=== PATIENT | male | born 1945 | race Caucasian/White ===

== ENCOUNTER 2024-11-07 13:29 | Inpatient (IN) | payer MEDICARE, SELFPAY ==
[2024-11-07] VITALS (12 sets, daily range): BP systolic 128–159; BP diastolic 50–60; PULSE 52–83; RESP 12–20; TEMP 36.7; O2SAT 94–97; BMI 26.5; BMI 27.2
--- NOTE | 2024-11-07 13:23 | ECG_ITS ---
APPROVED REPORT Exam: Resting ECG HR:78 bpm ECG Measurements Heart Rate 78 AXES QRSd 105 QRS 104 QT 433 T 111 QTc 466 Conclusion ATRIAL FIBRILLATION WITH ABERRANT CONDUCTION OR VENTRICULAR PREMATURE COMPLEXES INCOMPLETE RIGHT BUNDLE BRANCH BLOCK [90+ ms QRS DURATION, TERMINAL R IN V1/V2, 40+ ms S IN I/aVL/V4/V5/V6] POSSIBLE RIGHT VENTRICULAR HYPERTROPHY [SOME/ALL OF: PROMINENT R IN V1, LATE TRANSITION, RAD, JONO, SSS] ST DEVIATION AND MODERATE T-WAVE ABNORMALITY, CONSIDER LATERAL ISCHEMIA [-0.1+ mV T-WAVE IN I/aVL/V5/V6] Lateral ST depression as well as slight ST depression in lead II concerning for ischemic changes, no STEMI Electronically signed by : EDD ESCOBAR, 11/08/2024 06:59:20
--- NOTE | 2024-11-07 13:29 | ED_ITS ---
<Statement entered by Vini Aguilar MD - 11/12/24 07:18> I was consulted by the BRENDA, and we discussed the complexity of the problems being addressed. I approved the treatment and management plan for this patient's care in the emergency department, thus performing a substantive portion of the medical decision making. Vini Aguilar MD, JAVIER, FACEP Discharge Plan Disposition Patient Disposition: Admitted Condition: Serious Clinical Impressions Clinical Impression: Non-ST elevation AK (NSTEMI), RADHA (acute kidney injury) Acute exacerbation of CHF (congestive heart failure) Qualifiers: Heart failure type: unspecified Qualified Code(s): I50.9 - Heart failure, unspecified Discharge ED Provider: Vini Aguilar HPI <ANTONIO Cruz - Last Filed: 11/07/24 22:52> General Chief Complaint: Chest Pain Stated Complaint: SOA/CP 2 wk, HX afib Time Seen by Provider: 11/07/24 13:45 History of Present Illness HPI narrative: Patient presents for evaluation of chest pain. Patient has had 2 weeks of intermittent chest pain and dyspnea. His past medical history is significant for cardiovascular disease status post coronary artery bypass graft and PCI with stent placement post CABG. He has not had any chest pain for more than a decade. However the last 2 weeks he has begun to have progressive shortness of breath and dyspnea primarily starting when he wakes up in the morning. It is worse when he wakes up but is having it several times a day. He does see cardiology in [place] but has not called him about his chest pain. At the time of EMS arrival patient was porting his pain as an 8-10 out of 10. En route they gave him 1 nitroglycerin and it took his pain down to a 2. He denies any fever chills hemoptysis hematochezia melena nausea vomiting diarrhea diaphoresis headache. Related Data Home Medications ?Medication ?Instructions ?Recorded ?Confirmed allopurinol 100 mg tablet 100 mg PO DAILY 12/17/21 11/07/24 apixaban 5 mg tablet (Eliquis) 5 mg PO BID 12/17/21 11/07/24 atorvastatin 20 mg tablet 20 mg PO HS 12/17/21 11/07/24 ergocalciferol (vitamin D2) 1,250 1,250 mcg PO MONTHLY 12/17/21 11/07/24 mcg (50,000 unit) capsule furosemide 20 mg tablet 40 mg PO DAILY 12/17/21 11/07/24 hydralazine 100 mg tablet 100 mg PO BID 12/17/21 11/07/24 insulin glargine U-300 conc 300 See Rx Instructions .Route .COMPLEX 12/17/21 11/07/24 unit/mL (1.5 mL) subcutaneous pen (Toujeo SoloStar U-300 Insulin) pen needle, diabetic 31 gauge x #1,200 ea 12/17/21 11/07/24 5/16 (BD Ultra-Fine Short Pen Needle) tamsulosin 0.4 mg capsule 0.4 mg PO HS 12/17/21 11/07/24 spironolactone 25 mg tablet 25 mg PO DAILY 09/17/22 11/07/24 blood sugar diagnostic (Accu-Chek #10 ea 09/09/23 11/07/24 Jessica Plus test strips) ferrous sulfate 325 mg (65 mg 325 mg PO BID 09/09/23 11/07/24 iron) tablet doxazosin 8 mg tablet 8 mg PO HS 11/07/24 11/07/24 glipizide 5 mg tablet, extended 5 mg PO DAILY 11/07/24 11/07/24 release 24 hr Allergies Allergy/AdvReac Type Severity Reaction Status Date / Time No Known Allergies Allergy Verified 11/07/24 13:56 PENDING SALE TO [facility] <ANTONIO Cruz - Last Filed: 11/07/24 22:52> PENDING SALE TO [facility] Disclaimer: The information contained in this section may have been updated after the patient was seen, as this information can be updated by other users. Medical History (Updated 11/07/24 @ 21:12 by Mykel Puri MD) COPD (chronic obstructive pulmonary disease) CHF (congestive heart failure) CAD (coronary artery disease) CKD (chronic kidney disease) Callus of foot Diabetes mellitus Surgical History Hx of heart artery stent History of heart bypass surgery Social History Smoking Status: Former smoker tobacco type: cigarettes smoking status stop date: 09/28/1992 alcohol intake: never current occupational status: retired Travel in the last 8 weeks: None Have you lived/traveled outside US in past 30 days?: No Contact w/someone who lives/traveled outside US past 30 days?: No Exposure to someone with infectious disease in past 14 days?: No Do you have a fever (greater than 100.4 F or 38 C)?: No Have you tested positive for COVID-19: No Exposed to someone with COVID-19 in past 14 days?: No Do you have a sore throat?: No Do you have a cough?: No Do you have any weakness?: No Are you experiencing any nausea/vomitting?: No Do you have any diarrhea?: No Are you experiencing any unusual bleeding?: No Do you have any muscle aches/pain?: No Do you have any abdominal pain?: No Are you experiencing loss of taste or smell?: No Other Medical History Have you received the Pneumonia Vaccine: Yes <ANTONIO Cruz - Last Filed: 11/07/24 22:52> ROS Obtained: Yes Systems reviewed as appropriate & no additional complaints except as documented Physical Exam <ANTONIO Cruz - Last Filed: 11/07/24 22:52> General General appearance: alert and in no apparent distress Respiratory Respiratory exam: Present normal lung sounds bilaterally; Absent accessory muscle use Cardiovascular Cardiovascular exam: Present regular rate Neurological Exam Neurological exam: Present alert and oriented X3 HEART Score <ANTONIO Cruz - Last Filed: 11/07/24 22:52> HEART Score HEART Score assessment performed?: Yes History (anamnesis): Slightly suspicious ECG: Significant ST-deviation Age: >65 years Risk factors: Atherosclerosis history Troponin: 1-3x normal limit HEART Score: 7 Procedures <Vini Aguilar MD - Last Filed: 11/07/24 14:55> Miscellaneous Procedure Procedure Performed: Limited cardiac ultrasound Indication: Chest pain Identified structures: The heart was visualized in the parasternal long axis, parastenal short axis, apical four chamber and subxyphiod views. The IVC was visualized in the short axis and long axis at its entry into the right atrium. Findings: Normal LVEF RV LV ratio is 1 but there is no Kim sign or septal bowing IVC unable to be visualized due to bowel gas Impression: Evidence of right heart strain age-indeterminate LVEF is unremarkable no pericardial effusion Images were saved to permanent archive The study was technically adequate CPT: 02888-61 This study was performed by me, and I personally interpreted all images/videos. Based on my clinical judgement, these images were adequate and did not necessitate further imaging. Limited lung ultrasound A focused ultrasound exam of the pleural spaces was performed to evaluate for pneumothorax, pulmonary edema, pleural effusion and/or consolidation. The ultrasound was performed with the following indications, as noted in the H&P: Dyspnea Identified structures: Right and left thoracic cavities were examined. Findings: Lung sliding present throughout no B-lines pleural effusion or consolidated noted Impression: Unremarkable bedside ultrasound of bilateral lung Images were saved to permanent archive The study was technically adequate CPT 26266-52 This study was performed by me, and I personally interpreted all images/videos. Based on my clinical judgement, these images were adequate and did not necessitate further imaging. Critical Care <Vini Aguilar MD - Last Filed: 11/07/24 14:55> Critical Care Time Critical Care Time: Yes Attestation: On 11/07/24, the high probability of a clinically significant, sudden or life threatening deterioration of the following system(s) required my full and direct attention, intervention and personal management. The time I documented below is in addition to time spent performing reported procedures but includes the following listed in this critical care notation. Total Time Total Critical Care Time: 35 Medical Decision Making <ANTONIO Cruz - Last Filed: 11/07/24 22:52> Medical Records Medical records reviewed: Yes I reviewed the patient's medical records. Fabrice Inquiry Pt receiving controlled substance: No Vital Signs Vital Signs: 11/07/24 13:23 11/07/24 13:29 11/07/24 13:30 Temperature 98.0 F Temperature Source Oral Pulse Rate 72 83 Pulse Rate [Right] 82 Respiratory Rate 19 20 18 Blood Pressure 154/56 H 141/53 H Blood Pressure [Right Arm] 154/56 H Blood Pressure Mean [Right Arm] 88 Blood Pressure Source [Right Arm] Automatic Cuff 02 Sat by Pulse Oximetry 96 97 95 Oxygen Delivery Method Room Air Room Air Room Air 11/07/24 14:00 11/07/24 14:08 11/07/24 14:30 Temperature Temperature Source Pulse Rate 66 62 65 Pulse Rate [Right] Respiratory Rate 18 15 12 Blood Pressure 159/57 H 140/60 148/59 H Blood Pressure [Right Arm] Blood Pressure Mean [Right Arm] Blood Pressure Source [Right Arm] 02 Sat by Pulse Oximetry 96 94 L 94 L Oxygen Delivery Method Room Air Room Air Room Air 11/07/24 15:00 11/07/24 15:12 11/07/24 15:25 Temperature 98.0 F Temperature Source Oral Pulse Rate 71 71 Pulse Rate [Right] Respiratory Rate 15 20 Blood Pressure 135/50 L 135/59 L Blood Pressure [Right Arm] Blood Pressure Mean [Right Arm] Blood Pressure Source [Right Arm] 02 Sat by Pulse Oximetry 95 Oxygen Delivery Method Room Air Room Air Room Air Lab Data Lab results reviewed: Yes I reviewed the patient's lab results. Labs: Lab Results 11/07/24 13:26: D-Dimer 0.73 H 11/07/24 13:28: WBC 9.8, RBC 3.47 L, Hgb 10.5 L, Hct 31.4 L, MCV 90.5, MCH 30.3, MCHC 33.4, RDW 15.3, Plt Count 163, MPV 12.3 H, Neut % (Auto) 82.0 H, Lymph % (Auto) 8.3 L, Gage % (Auto) 7.1, Eos % (Auto) 1.6, Baso % (Auto) 0.5, Neut # (Auto) 8.0 H, Lymph # (Auto) 0.8, Gage # (Auto) 0.7, Eos # (Auto) 0.2, Baso # (Auto) 0.1, PT 11.9, INR 1.09, Sodium 139, Potassium 4.5, Chloride 109 H, Carbon Dioxide 17 L, Anion Gap 17.5 H, BUN 59 H, Creatinine 2.10 H, Estimated GFR 31 L, Est GFR ( Amer) 37 L, Glucose 232 H, Hemoglobin A1c 6.8 H, Calcium 9.1, Magnesium 2.0, Total Bilirubin 0.8, AST 32, ALT 29, Alkaline Phosphatase 120, T roponin I 0.05 H, NT-Pro-B Natriuret Pep 6790 H, Total Protein 7.5, Albumin 4.3, Globulin 3.2, Albumin/Globulin Ratio 1.3, TSH 3.09, Free T4 Index 4.6 L, T hyroxine (T4) 11.2 H, T3 Uptake 41 H, HCV Ab SHEFALI w/Rflx PCR Qn Negative, HIV Ag/Ab Combo Qual Negative 11/07/24 14:10: Urine Color Yellow, Urine Appearance Clear, Urine pH 5.5, Ur Specific [place] 1.015, Urine Protein Negative, Urine Glucose (UA) Trace, Urine Ketones Negative, Urine Blood Negative, Urine Nitrate Negative, Urine Bilirubin Negative, Urine Urobilinogen 0.2, Ur Leukocyte Esterase Negative, Urine RBC None, Urine WBC None, Ur Squamous Epith Cells Occasional, Urine Bacteria Trace, Hyaline Casts Occ 11/07/24 13:28 11/07/24 13:28 Response Orders (Tests/Meds): ED MEDICATIONS Generic Name Dose Route Start Last Admin Trade Name Freq PRN Reason Stop Dose Admin Allopurinol 100 mg 11/08/24 09:00 Allopurinol 100mg Tablet PO 12/08/24 08:59 DAILY REYNALDO Apixaban 5 mg 11/07/24 21:00 11/07/24 20:06 Apixaban 5mg Tablet PO 12/07/24 20:59 5 mg BID REYNALDO Administration Aspirin 324 mg 11/07/24 20:52 11/07/24 21:23 Aspirin 81mg Chewable Tablet PO 11/07/24 20:53 324 mg ONCE ONE Administration Aspirin 81 mg 11/08/24 09:00 Aspirin Ec 81mg Tablet PO 12/08/24 08:59 DAILY [facility] Atorvastatin Calcium 20 mg 11/07/24 21:00 11/07/24 20:06 Atorvastatin 20mg Tablet PO 12/07/24 20:59 20 mg HS REYNALDO Administration Bumetanide 1 mg 11/07/24 16:00 11/07/24 16:27 Bumetanide 1mg/4ml Vial IV 12/07/24 15:59 Not Given BIDL [facility] Clopidogrel Bisulfate 300 mg 11/07/24 20:52 11/07/24 21:23 Clopidogrel 300mg Tablet PO 11/07/24 20:53 300 mg ONCE ONE Administration Clopidogrel Bisulfate 75 mg 11/08/24 09:00 Clopidogrel 75mg Tab PO 12/08/24 08:59 DAILY [facility] Doxazosin Mesylate 8 mg 11/07/24 21:00 11/07/24 20:06 Doxazosin 4mg Tab PO 12/07/24 20:59 8 mg HS REYNALDO Administration Insulin Human Lispro 0 unit 11/07/24 16:30 11/07/24 20:12 Humalog 100 Units/Ml 10ml Vial (Ssi) SUBCUT 12/07/24 16:29 4 unit ACHS REYNALDO Administration Protocol Spironolactone 25 mg 11/08/24 09:00 Spironolactone 25mg Tablet PO 12/08/24 08:59 DAILY REYNALDO Tamsulosin HCl 0.4 mg 11/07/24 21:00 11/07/24 20:09 Tamsulosin 0.4mg Capsule PO 12/07/24 20:59 0.4 mg HS REYNALDO Administration Discontinued Medications Generic Name Dose Route Start Last Admin Trade Name Freq PRN Reason Stop Dose Admin Acetaminophen 1,000 mg 11/07/24 13:29 11/07/24 13:58 Acetaminophen 500mg Tab PO 11/07/24 13:30 1,000 mg ONCE ONE Administration Ketorolac Tromethamine 15 mg 11/07/24 13:29 11/07/24 13:58 Ketorolac 30mg/Ml Vial IV 11/07/24 13:30 15 mg ONCE ONE Administration ORDERS Category Date Time Status Cardiology Consult [Consult to Cardiology] [CONS] Cons 11/07/24 14:52 Active Routine POCUS Point of Care (ER Only) Stat Exams 11/07/24 14:18 Completed BNP [NT Pro Brain Natriuretic Pep.] Stat Lab 11/07/24 13:28 Completed CBC w/Auto Diff [Complete Blood Count Auto Diff] Stat Lab 11/07/24 13:28 Completed CMP [Comprehensive Metabolic Panel] Stat Lab 11/07/24 13:28 Completed Complete Blood Count Auto Diff AMLAB Lab 11/08/24 06:00 Ordered Comprehensive Metabolic Panel AMLAB Lab 11/08/24 06:00 Ordered D-Dimer Stat Lab 11/07/24 13:26 Completed HIV Combo Stat Lab 11/07/24 13:28 Completed Hemoglobin A1C Stat Lab 11/07/24 13:28 Completed Hepatitis C Ab Qual. W/ RFX Stat Lab 11/07/24 13:28 Completed INR [Prothrombin Time INR] Stat Lab 11/07/24 13:28 Completed Magnesium AMLAB Lab 11/08/24 06:00 Ordered Magnesium Stat Lab 11/07/24 13:28 Completed Thyroid Panel Stat Lab 11/07/24 13:28 Completed Trop I [Troponin I] Stat Lab 11/07/24 13:28 Completed Troponin I Q3H Lab 11/07/24 16:23 Completed Troponin I Q3H Lab 11/07/24 19:27 Completed UA [Urinalysis and Microscopic] Stat Lab 11/07/24 14:10 Completed CA echo doppler complete Routine Y 11/07/24 14:53 Completed MDM Narrative Medical Decision Narrative: In summary patient is a 79 who presents to the emergency department for evaluation of chest pain and dyspnea. Patient is normotensive 154/56 pulse 72 with sinus rhythm on the bedside monitor respiratory rate is 19 satting at 96% on room air upon arrival, afebrile at 98.0. Physical exam is remarkable for clear breath sounds no adventitious sounds no increased work of breathing. Auscultation of the heart sounds x-ray reveals an irregular rhythm but is rate controlled on the bedside monitor. Patient has no dependent edema. Patient has no abdominal pain rebound or guarding or rigidity normal bowel sounds. Differential diagnosis includes ACS versus PE versus CHF etc. Initial workup will be conducted with hematologic labs VBG plain film chest x-ray urinalysis twelve-lead EKG. Initial interventions include continuous cardiac monitoring and pulse oximetry initial workup reviewed by me Toradol Tylenol GI cocktail. Results investigation interpreted by me and my informal interpretation of his plain film chest x-ray prior to radiology read shows no acute processes. His twelve-lead EKG shows ST changes with no baseline to compare to his hematologic labs are significant for white count of 9.8 hemoglobin hematocrit 10.5 and 31.4 respectively with an absolute neutrophil count of 8.0 INR is 1.09 D-dimer is 0.73 chemistries are significant for a CO2 of 17 and gap of 17.5 BUN of 59 creatinine of 2.1 with a GFR of 31 glucose of 232 hemoglobin A1c of 6.8 his initial troponin is positive at 0.05 NT proBNP is 6790 TSH is 3.09 urinalysis is bland. Given this a POCUS was ordered that showed no evidence of wall motion abnormality. We then had interactive discussion with Dr. Garcia of cardiology regarding patient AZUL findings and management and he will be admitted for further observation and care. Prior to admission patient had complete resolution of his chest pain after initial intervention from a 2 out of 10 to 0 out of 10 after initial intervention. <Vini Aguilar MD - Last Filed: 11/07/24 14:55> Vital Signs Vital Signs: 11/07/24 13:23 11/07/24 13:29 11/07/24 13:30 Temperature 98.0 F Temperature Source Oral Pulse Rate 72 83 Pulse Rate [Right] 82 Respiratory Rate 19 20 18 Blood Pressure 154/56 H 141/53 H Blood Pressure [Right Arm] 154/56 H Blood Pressure Mean [Right Arm] 88 Blood Pressure Source [Right Arm] Automatic Cuff 02 Sat by Pulse Oximetry 96 97 95 Oxygen Delivery Method Room Air Room Air Room Air 11/07/24 14:00 11/07/24 14:08 11/07/24 14:30 Temperature Temperature Source Pulse Rate 66 62 65 Pulse Rate [Right] Respiratory Rate 18 15 12 Blood Pressure 159/57 H 140/60 148/59 H Blood Pressure [Right Arm] Blood Pressure Mean [Right Arm] Blood Pressure Source [Right Arm] 02 Sat by Pulse Oximetry 96 94 L 94 L Oxygen Delivery Method Room Air Room Air Room Air 11/07/24 15:00 11/07/24 15:12 11/07/24 15:25 Temperature 98.0 F Temperature Source Oral Pulse Rate 71 71 Pulse Rate [Right] Respiratory Rate 15 20 Blood Pressure 135/50 L 135/59 L Blood Pressure [Right Arm] Blood Pressure Mean [Right Arm] Blood Pressure Source [Right Arm] 02 Sat by Pulse Oximetry 95 Oxygen Delivery Method Room Air Room Air Room Air Lab Data Labs: Lab Results 11/07/24 13:26: D-Dimer 0.73 H 11/07/24 13:28: WBC 9.8, RBC 3.47 L, Hgb 10.5 L, Hct 31.4 L, MCV 90.5, MCH 30.3, MCHC 33.4, RDW 15.3, Plt Count 163, MPV 12.3 H, Neut % (Auto) 82.0 H, Lymph % (Auto) 8.3 L, Gage % (Auto) 7.1, Eos % (Auto) 1.6, Baso % (Auto) 0.5, Neut # (Auto) 8.0 H, Lymph # (Auto) 0.8, Gage # (Auto) 0.7, Eos # (Auto) 0.2, Baso # (Auto) 0.1, PT 11.9, INR 1.09, Sodium 139, Potassium 4.5, Chloride 109 H, Carbon Dioxide 17 L, Anion Gap 17.5 H, BUN 59 H, Creatinine 2.10 H, Estimated GFR 31 L, Est GFR ( Amer) 37 L, Glucose 232 H, Hemoglobin A1c 6.8 H, Calcium 9.1, Magnesium 2.0, Total Bilirubin 0.8, AST 32, ALT 29, Alkaline Phosphatase 120, T roponin I 0.05 H, NT-Pro-B Natriuret Pep 6790 H, Total Protein 7.5, Albumin 4.3, Globulin 3.2, Albumin/Globulin Ratio 1.3, TSH 3.09, Free T4 Index 4.6 L, T hyroxine (T4) 11.2 H, T3 Uptake 41 H, HCV Ab SHEFALI w/Rflx PCR Qn Negative, HIV Ag/Ab Combo Qual Negative 11/07/24 14:10: Urine Color Yellow, Urine Appearance Clear, Urine pH 5.5, Ur Specific [place] 1.015, Urine Protein Negative, Urine Glucose (UA) Trace, Urine Ketones Negative, Urine Blood Negative, Urine Nitrate Negative, Urine Bilirubin Negative, Urine Urobilinogen 0.2, Ur Leukocyte Esterase Negative, Urine RBC None, Urine WBC None, Ur Squamous Epith Cells Occasional, Urine Bacteria Trace, Hyaline Casts Occ Response Orders (Tests/Meds): ED MEDICATIONS Generic Name Dose Route Start Last Admin Trade Name Freq PRN Reason Stop Dose Admin Allopurinol 100 mg 11/08/24 09:00 Allopurinol 100mg Tablet PO 12/08/24 08:59 DAILY [facility] Apixaban 5 mg 11/07/24 21:00 11/07/24 20:06 Apixaban 5mg Tablet PO 12/07/24 20:59 5 mg BID REYNALDO Administration Aspirin 324 mg 11/07/24 20:52 11/07/24 21:23 Aspirin 81mg Chewable Tablet PO 11/07/24 20:53 324 mg ONCE ONE Administration Aspirin 81 mg 11/08/24 09:00 Aspirin Ec 81mg Tablet PO 12/08/24 08:59 DAILY [facility] Atorvastatin Calcium 20 mg 11/07/24 21:00 11/07/24 20:06 Atorvastatin 20mg Tablet PO 12/07/24 20:59 20 mg HS REYNALDO Administration Bumetanide 1 mg 11/07/24 16:00 11/07/24 16:27 Bumetanide 1mg/4ml Vial IV 12/07/24 15:59 Not Given [facility]L [facility] Clopidogrel Bisulfate 300 mg 11/07/24 20:52 11/07/24 21:23 Clopidogrel 300mg Tablet PO 11/07/24 20:53 300 mg ONCE ONE Administration Clopidogrel Bisulfate 75 mg 11/08/24 09:00 Clopidogrel 75mg Tab PO 12/08/24 08:59 DAILY [facility] Doxazosin Mesylate 8 mg 11/07/24 21:00 11/07/24 20:06 Doxazosin 4mg Tab PO 12/07/24 20:59 8 mg HS REYNALDO Administration Insulin Human Lispro 0 unit 11/07/24 16:30 11/07/24 20:12 Humalog 100 Units/Ml 10ml Vial (Ssi) SUBCUT 12/07/24 16:29 4 unit ACHS REYNALDO Administration Protocol Spironolactone 25 mg 11/08/24 09:00 Spironolactone 25mg Tablet PO 12/08/24 08:59 DAILY [facility] Tamsulosin HCl 0.4 mg 11/07/24 21:00 11/07/24 20:09 Tamsulosin 0.4mg Capsule PO 12/07/24 20:59 0.4 mg HS REYNALDO Administration Discontinued Medications Generic Name Dose Route Start Last Admin Trade Name Freq PRN Reason Stop Dose Admin Acetaminophen 1,000 mg 11/07/24 13:29 11/07/24 13:58 Acetaminophen 500mg Tab PO 11/07/24 13:30 1,000 mg ONCE ONE Administration Ketorolac Tromethamine 15 mg 11/07/24 13:29 11/07/24 13:58 Ketorolac 30mg/Ml Vial IV 11/07/24 13:30 15 mg ONCE ONE Administration ORDERS Category Date Time Status Cardiology Consult [Consult to Cardiology] [CONS] Cons 11/07/24 14:52 Active Routine POCUS Point of Care (ER Only) Stat Exams 11/07/24 14:18 Completed BNP [NT Pro Brain Natriuretic Pep.] Stat Lab 11/07/24 13:28 Completed CBC w/Auto Diff [Complete Blood Count Auto Diff] Stat Lab 11/07/24 13:28 Completed CMP [Comprehensive Metabolic Panel] Stat Lab 11/07/24 13:28 Completed Complete Blood Count Auto Diff AMLAB Lab 11/08/24 06:00 Ordered Comprehensive Metabolic Panel AMLAB Lab 11/08/24 06:00 Ordered D-Dimer Stat Lab 11/07/24 13:26 Completed HIV Combo Stat Lab 11/07/24 13:28 Completed Hemoglobin A1C Stat Lab 11/07/24 13:28 Completed Hepatitis C Ab Qual. W/ RFX Stat Lab 11/07/24 13:28 Completed INR [Prothrombin Time INR] Stat Lab 11/07/24 13:28 Completed Magnesium AMLAB Lab 11/08/24 06:00 Ordered Magnesium Stat Lab 11/07/24 13:28 Completed Thyroid Panel Stat Lab 11/07/24 13:28 Completed Trop I [Troponin I] Stat Lab 11/07/24 13:28 Completed Troponin I Q3H Lab 11/07/24 16:23 Completed Troponin I Q3H Lab 11/07/24 19:27 Completed UA [Urinalysis and Microscopic] Stat Lab 11/07/24 14:10 Completed CA echo doppler complete Routine Y 11/07/24 14:53 Completed
--- NOTE | 2024-11-07 13:30 | PC.NURSE ---
Kristian Bernstein PAC at bedside
[2024-11-07 13:41] LABS: Basophils # 0.1 K/mm3 (0-0.2); Basophils % 0.5 % (0.1-2.0); Eosinophils # 0.2 K/mm3 (0.0-0.4); Eosinophils % 1.6 % (0.1-12.0); Hematocrit 31.4 % (42.0-52.0); Hemoglobin 10.5 g/dL (14.1-18.0); Lymphocytes # 0.8 K/mm3 (0.7-4.5); Lymphocytes % 8.3 % (10-50); Mean Corpuscular HGB Conc 33.4 g/dL (31.8-35.4); Mean Corpuscular Hemoglobin 30.3 pg (27.0-31.2); Mean Corpuscular Volume 90.5 fl (80-94); Mean Platelet Volume 12.3 fl (7.4-10.4); Monocytes # 0.7 K/mm3 (0.1-1.0); Monocytes % 7.1 % (1.7-9.3); Platelet Count 163 K/mm3 (142-424); Red Blood Count 3.47 M/mm3 (4.60-6.20); Red Cell Distribution Width 15.3 % (11.5-17.5); White Blood Count 9.8 K/mm3 (4.8-10.8)
[2024-11-07 13:46] LABS: Albumin Level 4.3 g/dl (3.5-5.0); Chloride 109 mmol/L (98-107); Potassium 4.5 mmoL/L (3.5-5.1); Sodium 139 mmol/L (136-145)
[2024-11-07 13:49] LABS: Alanine Aminotransferase 29 U/L (12-78); Albumin/Globulin Ratio 1.3 (1.1-1.8); Alkaline Phosphatase 120 U/L (38-126); Anion Gap 17.5 mEq/L (5-15); Aspartate Amino Transferase 32 U/L (17-59); Bilirubin,Total 0.8 mg/dl (0.2-1.3); Blood Urea Nitrogen 59 mg/dl (9-20); Carbon Dioxide 17 mmol/L (22.0-30.0); Estimated Glomerular Filt Rate 31 ml/min (>60); GFR (African American) 37 ML/MIN (>60); Globulin 3.2 g/dL (1.3-3.2); Total Protein,Serum 7.5 g/dl (6.3-8.2)
[2024-11-07 13:50] LABS: Calcium 9.1 mg/dl (8.4-10.2); Glucose 232 mg/dl (74-100)
--- NOTE | 2024-11-07 13:52 | PC.NURSE ---
PT WAS GIVEN A URINAL AT THIS TIME DID LET HIM KNOW WE NEEDED A SAMPLE WHEN HE WAS ABLE TO GIVE US ONE, STATES NO NEEDS AT THIS TIME VISITOR AT BS AND CALL LIGHT IN REACH
[2024-11-07] MEDS: ACETAMINOPHEN 500MG TAB 1000 MG PO (13:58)
[2024-11-07] MEDS: KETOROLAC 30MG/ML VIAL 15 MG IV (13:58)
[2024-11-07 13:59] LABS: NT Pro Brain Natriuretic Pep. 6790 pg/mL (0-450)
--- NOTE | 2024-11-07 13:59 | PC.NURSE ---
pt. laying in bed at this time. No needs at this time. Call light in reach.
[2024-11-07 14:02] LABS: Troponin I 0.05 ng/ml (0.00-0.034)
--- NOTE | 2024-11-07 14:03 | PC.NURSE ---
still unable to void at this time but has urinal at BS and is aware of need of UA sample
[2024-11-07 14:17] LABS: Microscopic, Urine URINE MICROSCOPIC (MICROSCOPIC)
[2024-11-07 14:24] LABS: INR 1.09 (0.9-1.1); Prothrombin Time 11.9 seconds (9.2-12.1)
[2024-11-07 14:27] LABS: Appearance,Urine CLEAR (Clear); Bilirubin,Urine Negative (Negative); Blood, Urine Negative (Negative); Color,Urine YELLOW (Yellow); Glucose,Urine (UA) TRACE (Negative); Ketones,Urine Negative (Negative); Leukocyte Esterase,Urine Negative (Negative); Nitrate,Urine Negative (Negative); PH,Urine 5.5 (5.0-8.5); Protein,Urine Negative (Negative); Specific Gravity, Urine 1.015 (1.005-1.030); Urobilinogen,Urine 0.2 EU/dl (0.2)
[2024-11-07 14:28] LABS: Triiodothryronine (T3) Uptake 41 % (23.5-40.5)
[2024-11-07 14:30] LABS: Free Thyroxine Index 4.6 ug/dL (5.93-13.13); T4 (Thyroxine) 11.2 ug/dl (5.53-11.0)
[2024-11-07 14:36] LABS: Bacteria,Urine Trace /lpf; Hyaline Casts,Urine OCC #/lpf (0); Squamous Epithelial Cell,Urine Occasional #/hpf (0-5)
[2024-11-07 14:42] LABS: Thyroid Stimulating Hormone 3.09 uIU/mL (0.465-4.68)
--- NOTE | 2024-11-07 14:53 | CA_ITS ---
APPROVED REPORT EXAM: Comprehensive 2D, Doppler, and color-flow Echocardiogram Reheater Helper: Destiney Valle RVT Ht: 5 ft 10 in Wt: 185lbs BSA: 2.02 BP: 148/59 mmHg Indications: SOA,A-FIB,CHF,COPD,CAD,CP,EX SMOKER 2D Dimensions LA Volume 130.50 mL LA Volume Index 64.60 mL/m2 (M/F) 16-34 M-Mode Dimensions RVDd 3.70 cm (0.9-2.6) LA Diam 4.58 cm (1.9-4.0) LVDd 5.54 cm (3.5-5.7) LVDs 3.02 cm (3.5-5.7) IVSd 1.32 cm (0.6-1.1) PWd 0.51 cm (0.6-1.1) EF (Teich) 76.30% FS 45.50% EDV (Teich) 149.90 mL TAPSE 1.41 (<1.7) ESV (Teich) 35.60 mL Aortic Valve GOLD Index 1.08 cm2/m2 AoV Peak Andrea. 183.0 (50-130 cm/s) AI PHT 561.00 ms AO Peak GR. 13.50 mmHg AO Mean GR. 7.30 (<5 mmHg) AO VTI 40.6 (18-25 cm) GOLD (VTI) 2.24 (2.5-4.5 cm2) Pulmonary Valve PV Peak Velocity 112.0 (50-150 cm/s) Tricuspid Valve TR P. Velocity 483.00 cm/s RAP Estimate 10.00 mmHg RVSP 103.40 mmHg Left Ventricle The left ventricle is normal size. The left ventricular systolic function is normal. The left ventricular ejection fraction is within the normal range. There is increased LV wall thickness. Septal flattening is present, consistent with right-sided pressure/volume overload. Diastolic function is indeterminate. LVEF is 55%. Right Ventricle Right ventricle is moderately dilated. Right ventricle is mildly to moderately hypokinetic. Atria The left atrium is severely dilated. Right atrium is severely dilated. There is no Doppler evidence of interatrial shunt. Aortic Valve The aortic valve is mildly thickened. Moderate There is no aortic valvular stenosis. Moderate aortic regurgitation. Mitral Valve The mitral valve leaflets are mildly thickened. No evidence of mitral valve stenosis. Mild mitral regurgitation. Tricuspid Valve The tricuspid valve leaflets are thin and pliable. Moderate tricuspid regurgitation. RVSP is > 60 mmHg. Pulmonic Valve The pulmonary valve is normal in structure. Mild pulmonic regurgitation. Great Vessels The aortic root is normal in size. The ascending aorta is normal in size. The IVC is dilated, collapses < 50% with respirophasic variation. RA pressures estimated at 15 mmHg. Pericardium There is no pericardial effusion. Other Information Study Quality: Fair Conclusion Normal LV systolic function (LVEF 55%). Septal flattening is present, consistent with right-sided pressure/volume overload. Moderate RV dilation with mild to moderate reduction in RV function. Severe biatrial dilation. Moderate TR. Moderate AI. Mild MR. Mild PI. Markedly elevated RVSP > 60 mmHg. Electronically signed by : Kimberli Cisneros MD 11/08/2024 01:42:29
--- NOTE | 2024-11-07 14:55 | EXP.HP ---
History of Present Illness *Admission Date: 11/07/24 *Reason for visit:: chest pain *History of present illness: History Alba is a 79-year-old male with history of CHF, COPD, diabetes, CABG previous heart caths approximately 30 years ago, BPH, type 2 diabetes, and a history of A-fib on chronic anticoagulation. He presented to the ER because of complaint of worsening chest pain and shortness of breath over the past few weeks. Denies any swelling in his legs. States he has been more short of breath with exertion. Denies any nausea or vomiting, syncope, fever or chills. Pain has been substernal. Workup in the ER with EKG showing no ST elevations. Had some A-fib rate controlled with aberrancy, White count normal at 9.8. Hemoglobin 10.5. Kidney function at baseline for patient from his report with BUN 59, creatinine 2.1. BNP elevated at 6700. Detectable initial troponin at 0.06. Given symptoms and abnormal lab findings, medicine consulted for admission and further management of CHF exacerbation and NSTEMI. After arrival to the floor, patient is feeling somewhat better. Started on diuretics. Has had 2 voids that are unmeasured. Stable on room air. at bedside. Pain better at this time per his report. Alert and oriented but reports feeling weak [facility] Disclaimer: The information contained in this section may have been updated after the patient was seen, as this information can be updated by other users. Medical History COPD (chronic obstructive pulmonary disease) CHF (congestive heart failure) CAD (coronary artery disease) CKD (chronic kidney disease) Callus of foot Diabetes mellitus Surgical History Hx of heart artery stent History of heart bypass surgery Social History Smoking Status: Former smoker tobacco type: cigarettes smoking status stop date: 09/28/1992 alcohol intake: never current occupational status: retired Travel in the last 8 weeks: None Have you lived/traveled outside [place] in past 30 days?: No Contact w/someone who lives/traveled outside US past 30 days?: No Exposure to someone with infectious disease in past 14 days?: No Do you have a fever (greater than 100.4 F or 38 C)?: No Have you tested positive for COVID-19: No Exposed to someone with COVID-19 in past 14 days?: No Do you have a sore throat?: No Do you have a cough?: No Do you have any weakness?: No Are you experiencing any nausea/vomitting?: No Do you have any diarrhea?: No Are you experiencing any unusual bleeding?: No Do you have any muscle aches/pain?: No Do you have any abdominal pain?: No Are you experiencing loss of taste or smell?: No Other Medical History Have you received the Pneumonia Vaccine: Yes Review of Systems Review of Systems Review of systems (narrative): 14 point review of systems performed, pertinent positives and negatives as per HPI Meds Home Medications and Allergies Home Medications ?Medication ?Instructions ?Recorded ?Confirmed ?Type allopurinol 100 mg tablet 100 mg PO DAILY 12/17/21 11/07/24 History apixaban 5 mg tablet (Eliquis) 5 mg PO BID 12/17/21 11/07/24 History atorvastatin 20 mg tablet 20 mg PO HS 12/17/21 11/07/24 History ergocalciferol (vitamin D2) 1,250 1,250 mcg PO MONTHLY 12/17/21 11/07/24 History mcg (50,000 unit) capsule furosemide 20 mg tablet 40 mg PO DAILY 12/17/21 11/07/24 History hydralazine 100 mg tablet 100 mg PO BID 12/17/21 11/07/24 History insulin glargine U-300 conc 300 See Rx Instructions .Route .COMPLEX 12/17/21 11/07/24 History unit/mL (1.5 mL) subcutaneous pen (Toujeo SoloStar U-300 Insulin) pen needle, diabetic 31 gauge x #1,200 ea 12/17/21 11/07/24 History 5/16 (BD Ultra-Fine Short Pen Needle) tamsulosin 0.4 mg capsule 0.4 mg PO HS 12/17/21 11/07/24 History spironolactone 25 mg tablet 25 mg PO DAILY 09/17/22 11/07/24 History blood sugar diagnostic (Accu-Chek #10 ea 09/09/23 11/07/24 History Jessica Plus test strips) ferrous sulfate 325 mg (65 mg 325 mg PO BID 09/09/23 11/07/24 History iron) tablet doxazosin 8 mg tablet 8 mg PO HS 11/07/24 11/07/24 History glipizide 5 mg tablet, extended 5 mg PO DAILY 11/07/24 11/07/24 History release 24 hr New Prescriptions to Start Prescriptions: Allergies Allergy/AdvReac Type Severity Reaction Status Date / Time No Known Allergies Allergy Verified 11/07/24 13:56 Exam Data for Last 24 hours Vital signs and Labs for Last 24 Hours: Temp Pulse Resp BP Pulse Ox O2 Del Method 98.0 F 65 12 148/59 H 94 L Room Air 11/07/24 13:29 11/07/24 14:30 11/07/24 14:30 11/07/24 14:30 11/07/24 14:30 11/07/24 14:30 Laboratory Results - last 24 hr 11/07/24 13:28: WBC 9.8, RBC 3.47 L, Hgb 10.5 L, Hct 31.4 L, MCV 90.5, MCH 30.3, MCHC 33.4, RDW 15.3, Plt Count 163, MPV 12.3 H, Neut % (Auto) 82.0 H, Lymph % (Auto) 8.3 L, [place] % (Auto) 7.1, Eos % (Auto) 1.6, Baso % (Auto) 0.5, Neut # (Auto) 8.0 H, Lymph # (Auto) 0.8, [place] # (Auto) 0.7, Eos # (Auto) 0.2, Baso # (Auto) 0.1, PT 11.9, INR 1.09, Sodium 139, Potassium 4.5, Chloride 109 H, Carbon Dioxide 17 L, Anion Gap 17.5 H, BUN 59 H, Creatinine 2.10 H, Estimated GFR 31 L, Est GFR ( Amer) 37 L, Glucose 232 H, Calcium 9.1, Magnesium 2.0, Total Bilirubin 0.8, AST 32, ALT 29, Alkaline Phosphatase 120, Troponin I 0.05 H, NT-Pro-B Natriuret Pep 6790 H, Total Protein 7.5, Albumin 4.3, Globulin 3.2, Albumin/Globulin Ratio 1.3, Free T4 Index 4.6 L, Thyroxine (T4) 11.2 H, T3 Uptake 41 H 11/07/24 14:10: Urine Color Yellow, Urine Appearance Clear, Urine pH 5.5, Ur Specific [place] 1.015, Urine Protein Negative, Urine Glucose (UA) Trace, Urine Ketones Negative, Urine Blood Negative, Urine Nitrate Negative, Urine Bilirubin Negative, Urine Urobilinogen 0.2, Ur Leukocyte Esterase Negative, Urine RBC None, Urine WBC None, Ur Squamous Epith Cells Occasional, Urine Bacteria Trace, Hyaline Casts Occ I & O for Last 24 hours: Intake & Output 11/04/24 11/05/24 11/06/24 11/07/24 23:59 23:59 23:59 23:59 Weight 83.915 kg Constitutional Constitutional: no acute distress, average body habitus, chronically ill appearing and cooperative *Routine HEENT Exam Head: Present normocephalic Eye: Present EOMI and PERRL ENT: Present mucous membranes moist *Routine Neck Exam Neck: Present supple; Absent lymphadenopathy *Routine Respiratory Exam Respiratory: Present CTA bilaterally; Absent rhonchi, wheezes or crackles *Routine Cardiovascular Exam Cardiovascular: Present irregularly irregular *Routine Abdominal Exam Abdominal: Present soft and normoactive bowel sounds; Absent tenderness *Routine Rectal Exam Rectal:: deferred *Routine Genitalia Exam Genitalia:: deferred *Routine Extremities Exam Extremities: Absent cyanosis, clubbing or edema *Routine Skin Exam Skin: Present intact and warm; Absent rash *Routine Neurological Exam Neurological: Present alert, oriented X3 and moving all extremities; Absent altered mental status Assessment and Plan *Assessment and plan (1) CHF (congestive heart failure): Status: Acute Qualifiers: Heart failure chronicity: acute on chronic Heart failure type: diastolic Qualified Code(s): I50.33 - Acute on chronic diastolic (congestive) heart failure Category: Medical Code(s): I50.9 - Heart failure, unspecified (2) Diabetes mellitus: Status: Acute Qualifiers: Diabetes mellitus complication status: with other specified complication Diabetes mellitus chcf insulin use: with chcf use Diabetes mellitus type: type 2 Qualified Code(s): E11.69 - Type 2 diabetes mellitus with other specified complication; Z79.4 - FPC (current) use of insulin Category: Medical Code(s): E11.9 - Type 2 diabetes mellitus without complications (3) COPD (chronic obstructive pulmonary disease): Status: Chronic Category: Medical Code(s): J44.9 - Chronic obstructive pulmonary disease, unspecified (4) Non-ST elevation [place] (NSTEMI): Status: Acute Category: Medical Code(s): I21.4 - Non-ST elevation (NSTEMI) myocardial infarction (5) RADHA (acute kidney injury): Status: Acute Category: Medical Code(s): N17.9 - Acute kidney failure, unspecified (6) CAD (coronary artery disease): Status: Chronic Category: Medical Code(s): I25.10 - Atherosclerotic heart disease of [place] coronary artery without angina pectoris Plan 79-year-old male with history of CABG and heart cath 30 years ago, insulin-dependent diabetes, COPD, CHF, CKD versus RADHA, BPH who presents with 2 weeks of worsening chest pain and shortness of breath with exertion. Workup in the ER concerning for CHF elevated BNP. Medicine consulted for admission. Discussed case with ER physician, request admission for diuresis and cardiology eval. I agreed to admit for further treatment. Problems addressed as follows: NSTEMI CHF exacerbation, acute on chronic HFpEF History of CABG/CAD Hyperlipidemia -Troponin 0.05, monitor serial level every 3 hours. BNP 6700 -EKG per my review with no ST elevations -Echo obtained, formal read still pending, prelim shows right sided dysfunction with elevated RVSP -Initiate aspirin load with 324 mg and Plavix 300 mg. Continue Plavix 75 mg daily and aspirin 81 mg daily -Cardiology consulted to evaluate the patient in the morning -Initiate diuretics with Bumex 1 mg twice daily IV, goal negative fluid status -Supplemental oxygen if needed for goal sats greater 90%. Currently on room air - Continue hydralazine 100 mg twice daily for blood pressure. -History of A-fib, continue apixaban 5 mg twice daily. Rate currently controlled -Continue Lipitor 20 mg nightly -Continue spironolactone 25 mg daily CKD versus RADHA - Close monitoring of kidney function and electrolytes. BUN 59, creatinine 2.1. We do not have a baseline in our system. Patient does follow with a cotton candy maker. Unclear as exact baseline. Potassium 4.5, magnesium 2.0. Diabetes: A1c 6.8. Continue sliding scale insulin with fingersticks ACHS. Unclear patient's baseline insulin, will hold basal for now pending clarification of med rec. COPD: No wheezing on exam. Will consider DuoNebs if develops dyspnea or wheeze. BPH: Continue tamsulosin 0.4 mg nightly Gout: Continue allopurinol 100 mg daily Full code Eliquis 5 mg twice daily Cardiac diet, n.p.o. after midnight
--- NOTE | 2024-11-07 14:59 | PC.NURSE ---
Dr. Puri agrees to admit. lunchroom supervisor notified of admission
--- NOTE | 2024-11-07 15:18 | HMH.PHAINT1 ---
Pharmacy Intervention Comments: HOME MEDICATION LIST VERIFIED USING LIST FROM OUTPATIENT PHARMACY
--- NOTE | 2024-11-07 15:20 | PC.NURSE ---
ROUNDED ON THE PT. THE PT VOICES THAT HE DOES NOT NEED ANYTHING AT THIS TIME. CALL LIGHT IS WITHIN REACH OF THE PT.
[2024-11-07 15:24] LABS: D-Dimer 0.73 ug/mL (0.0-0.5)
--- NOTE | 2024-11-07 15:25 | PC.NURSE ---
Gave report to Yumiko SOLARES on Med/Surg
[2024-11-07 15:34] LABS: Hemoglobin A1C 6.8 % (4.0-6.0)
--- NOTE | 2024-11-07 15:48 | PC.NURSE ---
arrived by w/c from ED
[2024-11-07 16:06] LABS: HIV Combo NEGATIVE (Negative)
[2024-11-07 16:14] LABS: Hepatitis C Ab Qual. W/ RFX NEGATIVE (Negative)
[2024-11-07] MEDS: humaLOG 100 UNITS/ML 10ML VIAL (SSI) SUBCUT ×2 (16:31→20:12)
[2024-11-07 16:52] LABS: Troponin I 0.19 ng/ml (0.00-0.034)
--- NOTE | 2024-11-07 17:52 | PC.NURSE ---
pt resting supine in bed with family at bedside. no complaints of chest pain since arriving to the floor. tolerating ra with sats >90%. no needs at this time. call light within reach.
[2024-11-07 20:05] LABS: POC Glucose,Bedside 225 (70-110)
[2024-11-07] MEDS: DOXAZOSIN 4MG TAB 8 MG PO (20:06)
[2024-11-07] MEDS: ATORVASTATIN 20MG TABLET 20 MG PO (20:06)
[2024-11-07] MEDS: APIXABAN 5MG TABLET 5 MG PO (20:06)
[2024-11-07] MEDS: TAMSULOSIN 0.4MG CAPSULE 0.4 MG PO (20:09)
[2024-11-07 20:13] LABS: Troponin I 1.15 ng/ml (0.00-0.034)
[2024-11-07 20:26] LABS: POC Glucose,Bedside 202 (70-110)
--- NOTE | 2024-11-07 21:14 | ECG_ITS ---
APPROVED REPORT Exam: Resting ECG HR:62 bpm ECG Measurements Heart Rate 62 AXES QRSd 101 QRS 102 QT 427 T 145 QTc 432 Conclusion ATRIAL FIBRILLATION RIGHT AXIS DEVIATION [QRS AXIS > 100] INCOMPLETE RIGHT BUNDLE BRANCH BLOCK [90+ ms QRS DURATION, TERMINAL R IN V1/V2, 40+ ms S IN I/aVL/V4/V5/V6] ST DEVIATION AND MODERATE T-WAVE ABNORMALITY, CONSIDER LATERAL ISCHEMIA [-0.1+ mV T-WAVE IN I/aVL/V5/V6] ABNORMAL ECG UNCONFIRMED REPORT Electronically signed by : yAad Lipscomb MD 11/08/2024 15:31:17
[2024-11-07] MEDS: CLOPIDOGREL 300MG TABLET 300 MG PO (21:23)
[2024-11-07] MEDS: ASPIRIN 81MG CHEWABLE TABLET 324 MG PO (21:23)
[2024-11-08] VITALS (8 sets, daily range): BP systolic 123–149; BP diastolic 48–64; PULSE 40–63; RESP 15–18; TEMP 36.4–36.7; O2SAT 96–98; BMI 27.5
[2024-11-08 00:22] LABS: POC Glucose,Bedside 61 (70-110)
--- NOTE | 2024-11-08 00:22 | PC.NURSE ---
Addendum entered by Alma Jiménez RN 11/08/24 01:51: pt's blood sugar after snack was 107. Original Note: pt requested for blood sugar to be checked at 0000. pt's blood sugar was 61. pt was given peanut butter with crackers and apple juice.
[2024-11-08 01:48] LABS: Troponin I 4.18 ng/ml (0.00-0.034)
[2024-11-08 01:57] LABS: POC Glucose,Bedside 107 (70-110)
--- NOTE | 2024-11-08 01:57 | ECG_ITS ---
APPROVED REPORT Exam: Resting ECG HR:50 bpm ECG Measurements Heart Rate 50 AXES QRSd 108 QRS 82 QT 480 T 176 QTc 452 Conclusion ATRIAL FIBRILLATION WITH SLOW VENTRICULAR RESPONSE INCOMPLETE RIGHT BUNDLE BRANCH BLOCK [90+ ms QRS DURATION, TERMINAL R IN V1/V2, 40+ ms S IN I/aVL/V4/V5/V6] ST DEVIATION AND MODERATE T-WAVE ABNORMALITY, CONSIDER ANTEROLATERAL ISCHEMIA [-0.1+ mV T-WAVE IN V3-V6] ABNORMAL ECG UNCONFIRMED REPORT Electronically signed by : Ayad Lipscomb MD 11/08/2024 15:31:10
--- NOTE | 2024-11-08 02:03 | EXP.EVENT.NO ---
Continuing to watch a increasing troponin for the patient.. Patient having no physical discomfort no signs of chest pain. Recently just finished echocardiogram showing 55% ejection fraction twelve-lead EKG slight change in reading showing slight change in T wave abnormality. Also noting patient blood sugar was dropped to 61 patient given the snack.. Patient has received Plavix and aspirin.. Since the patient is having no physical signs of any distress shortness of breath or chest pain will continue to monitor and repeat troponin. Patient is on continuous cardiac monitoring, the nurse taking care of the patient is well aware of everything going on and is watching him closely. ..
--- NOTE | 2024-11-08 03:30 | PC.NURSE ---
PT IS RESTING IN BED WITH FAMILY AT BEDSIDE. ALERT AND ORIENTED X4. NO COMPLAINTS OF CP OR SOA. AFIB ON TELEMETRY WITH HR MAINTAINING IN THE 50'S. LUNG SOUNDS DIMINISHED. ABDOMEN SOFT/NON TENDER WITH ACTIVE BOWEL SOUNDS. VSS. WILL CONTINUE TO MONITOR.
--- NOTE | 2024-11-08 04:30 | PC.NURSE ---
Patient care transferred to al from Tiny Jiménez RN at this time. Patient is currently resting in bed, at bedside, without any complaints. Call light within reach.
[2024-11-08 05:50] LABS: POC Glucose,Bedside 117 (70-110)
[2024-11-08 06:36] LABS: Albumin Level 3.9 g/dl (3.5-5.0); Chloride 109 mmol/L (98-107); Sodium 138 mmol/L (136-145)
[2024-11-08 06:37] LABS: Potassium 4.3 mmoL/L (3.5-5.1)
[2024-11-08 06:39] LABS: Alanine Aminotransferase 27 U/L (12-78); Albumin/Globulin Ratio 1.4 (1.1-1.8); Alkaline Phosphatase 97 U/L (38-126); Anion Gap 13.3 mEq/L (5-15); Aspartate Amino Transferase 41 U/L (17-59); Bilirubin,Total 0.6 mg/dl (0.2-1.3); Blood Urea Nitrogen 63 mg/dl (9-20); Carbon Dioxide 20 mmol/L (22.0-30.0); Creatinine Clearance Estimated 29 mL/min (50-200); Estimated Glomerular Filt Rate 24 ml/min (>60); GFR (African American) 29 ML/MIN (>60); Globulin 2.8 g/dL (1.3-3.2); Total Protein,Serum 6.7 g/dl (6.3-8.2)
[2024-11-08 06:40] LABS: Calcium 8.8 mg/dl (8.4-10.2); Glucose 121 mg/dl (74-100); Magnesium 2.3 mg/dl (1.6-2.3)
[2024-11-08 06:57] LABS: Troponin I 4.36 ng/ml (0.00-0.034)
--- NOTE | 2024-11-08 06:58 | PC.NURSE ---
Lab called to report a critical troponin value of 4.36. Mundo CHONG was paged at this time to inform him about the critical lab value.
[2024-11-08 07:33] LABS: Basophils # 0.1 K/mm3 (0-0.2); Basophils % 0.7 % (0.1-2.0); Eosinophils # 0.3 K/mm3 (0.0-0.4); Eosinophils % 3.5 % (0.1-12.0); Hematocrit 29.2 % (42.0-52.0); Hemoglobin 9.9 g/dL (14.1-18.0); Lymphocytes # 1.1 K/mm3 (0.7-4.5); Lymphocytes % 14.9 % (10-50); Mean Corpuscular HGB Conc 33.9 g/dL (31.8-35.4); Mean Corpuscular Hemoglobin 30.9 pg (27.0-31.2); Mean Corpuscular Volume 91.3 fl (80-94); Mean Platelet Volume 12.7 fl (7.4-10.4); Monocytes # 0.9 K/mm3 (0.1-1.0); Monocytes % 12.3 % (1.7-9.3); Neutrophils # 4.8 K/mm3 (1.8-7.8); Platelet Count 138 K/mm3 (142-424); Red Cell Distribution Width 15.4 % (11.5-17.5); White Blood Count 7.1 K/mm3 (4.8-10.8)
[2024-11-08 09:39] LABS: PTT Heparin (inpatient only) 28.6 Seconds (50-75)
--- NOTE | 2024-11-08 09:43 | EXP.CARD.CON ---
History of Present Illness History of Present Illness Consult date: 11/08/24 Requesting physician: Mykel Puri Consult reason: chest pain Chief complaint: chest pain History of present illness: 79-year-old white male with history of multivessel CAD status post CABG x 1 in 1993 and stenting x 1 in 1996 as well as CHF paroxysmal atrial fibrillation, CKD 3, COPD. Patient typically follows with cardiology in [place]. Yesterday patient presented to our ER complaining of 2 weeks of worsening episodic chest heaviness with radiation down his left arm-symptoms were worse with activity and better with rest. Yesterday symptoms became more severe and associated with severe shortness of breath so he presented to the emergency room. On arrival he was found to be in rate controlled atrial fibrillation with creatinine 2.1, proBNP 6700, troponin 0.06. Patient was kept overnight for ACS rule out. His troponins have trended up overnight to 4.36, he was diuresed slightly and creatinine is up to 2.6. He did take Eliquis last night but dose was held this morning. 2D echo here shows EF 55%, septal flattening indicative of right sided pressure, severe biatrial dilation, moderate TR, moderate AI, markedly elevated RVSP greater than 60 mmHg. [facility] Disclaimer: The information contained in this section may have been updated after the patient was seen, as this information can be updated by other users. Medical History COPD (chronic obstructive pulmonary disease) CHF (congestive heart failure) CAD (coronary artery disease) CKD (chronic kidney disease) Callus of foot Diabetes mellitus Surgical History Hx of heart artery stent History of heart bypass surgery Social History Smoking Status: Former smoker tobacco type: cigarettes smoking status stop date: 09/28/1992 alcohol intake: never current occupational status: retired Travel in the last 8 weeks: None Have you lived/traveled outside US in past 30 days?: No Contact w/someone who lives/traveled outside US past 30 days?: No Exposure to someone with infectious disease in past 14 days?: No Do you have a fever (greater than 100.4 F or 38 C)?: No Have you tested positive for COVID-19: No Exposed to someone with COVID-19 in past 14 days?: No Do you have a sore throat?: No Do you have a cough?: No Do you have any weakness?: No Are you experiencing any nausea/vomitting?: No Do you have any diarrhea?: No Are you experiencing any unusual bleeding?: No Do you have any muscle aches/pain?: No Do you have any abdominal pain?: No Are you experiencing loss of taste or smell?: No Review of Systems Constitutional Constitutional: Denies fatigue and Denies weakness Eyes Eyes: Denies loss of vision ENT Ears, Nose, Mouth, and Throat: Denies hearing loss and Denies vertigo *Cardiovascular Cardiovascular: Reports chest pain, Denies dyspnea and Denies syncope *Respiratory Respiratory: Denies cough and Denies dyspnea *Gastrointestinal Gastrointestinal: Denies change in stool character, Denies nausea and Denies vomiting *Genitourinary Genitourinary: Denies difficulty urinating *Musculoskeletal Musculoskeletal: Denies muscle weakness Integumentary/Breasts Skin/Breast: Denies changing lesions *Neurologic Neurologic: Denies loss of vision, Denies syncope, Denies vertigo and Denies weakness Endocrine Endocrine: Denies fatigue Exam Data for Last 24 hours Vital signs and Labs for Last 24 Hours: Temp Pulse Resp BP Pulse Ox O2 Del Method 97.5 F L 63 17 126/63 98 Room Air 11/08/24 08:00 11/08/24 08:00 11/08/24 08:00 11/08/24 08:00 11/08/24 08:00 11/08/24 09:00 Laboratory Results - last 24 hr 11/07/24 13:26: D-Dimer 0.73 H 11/07/24 13:28: WBC 9.8, RBC 3.47 L, Hgb 10.5 L, Hct 31.4 L, MCV 90.5, MCH 30.3, MCHC 33.4, RDW 15.3, Plt Count 163, MPV 12.3 H, Neut % (Auto) 82.0 H, Lymph % (Auto) 8.3 L, [place] % (Auto) 7.1, Eos % (Auto) 1.6, Baso % (Auto) 0.5, Neut # (Auto) 8.0 H, Lymph # (Auto) 0.8, [place] # (Auto) 0.7, Eos # (Auto) 0.2, Baso # (Auto) 0.1, PT 11.9, INR 1.09, Sodium 139, Potassium 4.5, Chloride 109 H, Carbon Dioxide 17 L, Anion Gap 17.5 H, BUN 59 H, Creatinine 2.10 H, Estimated GFR 31 L, Est GFR ( Amer) 37 L, Glucose 232 H, Hemoglobin A1c 6.8 H, Calcium 9.1, Magnesium 2.0, Total Bilirubin 0.8, AST 32, ALT 29, Alkaline Phosphatase 120, Troponin I 0.05 H, NT-Pro-B Natriuret Pep 6790 H, Total Protein 7.5, Albumin 4.3, Globulin 3.2, Albumin/Globulin Ratio 1.3, TSH 3.09, Free T4 Index 4.6 L, Thyroxine (T4) 11.2 H, T3 Uptake 41 H, HCV Ab SHEFALI w/Rflx PCR Qn Negative, HIV Ag/Ab Combo Qual Negative 11/07/24 14:10: Urine Color Yellow, Urine Appearance Clear, Urine pH 5.5, Ur Specific [place] 1.015, Urine Protein Negative, Urine Glucose (UA) Trace, Urine Ketones Negative, Urine Blood Negative, Urine Nitrate Negative, Urine Bilirubin Negative, Urine Urobilinogen 0.2, Ur Leukocyte Esterase Negative, Urine RBC None, Urine WBC None, Ur Squamous Epith Cells Occasional, Urine Bacteria Trace, Hyaline Casts Occ 11/07/24 16:22: POC Glucose 225 H 11/07/24 16:23: Troponin I 0.19 H 11/07/24 19:27: Troponin I 1.15 H 11/07/24 20:12: POC Glucose 202 H 11/08/24 00:15: POC Glucose 61 L 11/08/24 00:56: Troponin I 4.18 H 11/08/24 01:50: POC Glucose 107 11/08/24 05:42: POC Glucose 117 H 11/08/24 06:04: WBC 7.1 D, RBC 3.20 L, Hgb 9.9 L, Hct 29.2 L, MCV 91.3, MCH 30.9, MCHC 33.9, RDW 15.4, Plt Count 138 L, MPV 12.7 H, Neut % (Auto) 68.0, Lymph % (Auto) 14.9, [place] % (Auto) 12.3 H, Eos % (Auto) 3.5, Baso % (Auto) 0.7, Neut # (Auto) 4.8, Lymph # (Auto) 1.1, [place] # (Auto) 0.9, Eos # (Auto) 0.3, Baso # (Auto) 0.1, Sodium 138, Potassium 4.3, Chloride 109 H, Carbon Dioxide 20 L, Anion Gap 13.3, BUN 63 H, Creatinine 2.60 H D, Estimated Creat Clear 29, Estimated GFR 24 L, Est GFR ( Amer) 29 L D, Glucose 121 H D, Calcium 8.8, Magnesium 2.3 D, Total Bilirubin 0.6, AST 41 D, ALT 27, Alkaline Phosphatase 97, Troponin I 4.36 H, Total Protein 6.7, Albumin 3.9, Globulin 2.8, Albumin/Globulin Ratio 1.4 11/08/24 09:15: APTT 28.6 L I & O for Last 24 hours: Intake & Output 11/05/24 11/06/24 11/07/24 11/08/24 23:59 23:59 23:59 23:59 Intake Total 240 / 240 Output Total 275 / 275 Balance -35 / -35 Weight 190 lb 192 lb 7 oz Constitutional Constitutional: no acute distress and cooperative *Routine HEENT Exam Eye: Present PERRL *Routine Respiratory Exam Respiratory: Present CTA bilaterally; Absent accessory muscle use, wheezes or crackles *Routine Cardiovascular Exam Cardiovascular: Present RRR, Normal S1 and Normal S2; Absent murmur, gallop or rubs *Routine Abdominal Exam Abdominal: Present soft; Absent tenderness *Routine Extremities Exam Extremities: Present pulses intact; Absent cyanosis or edema *Routine Skin Exam Skin: Present intact; Absent erythema or wounds *Routine Neurological Exam Neurological: Present alert and oriented X3 Routine Psychiatric Exam Psychiatric: Present cooperative Meds Home Medications and Allergies Home Medications ?Medication ?Instructions ?Recorded ?Confirmed ?Type allopurinol 100 mg tablet 100 mg PO DAILY 12/17/21 11/07/24 History apixaban 5 mg tablet (Eliquis) 5 mg PO BID 12/17/21 11/07/24 History atorvastatin 20 mg tablet 20 mg PO HS 12/17/21 11/07/24 History ergocalciferol (vitamin D2) 1,250 1,250 mcg PO MONTHLY 12/17/21 11/07/24 History mcg (50,000 unit) capsule furosemide 20 mg tablet 40 mg PO DAILY 12/17/21 11/07/24 History hydralazine 100 mg tablet 100 mg PO BID 12/17/21 11/07/24 History insulin glargine U-300 conc 300 See Rx Instructions .Route .COMPLEX 12/17/21 11/07/24 History unit/mL (1.5 mL) subcutaneous pen (Toujeo SoloStar U-300 Insulin) pen needle, diabetic 31 gauge x #1,200 ea 12/17/21 11/07/24 History 5/16 (BD Ultra-Fine Short Pen Needle) tamsulosin 0.4 mg capsule 0.4 mg PO HS 12/17/21 11/07/24 History spironolactone 25 mg tablet 25 mg PO DAILY 09/17/22 11/07/24 History blood sugar diagnostic (Accu-Chek #10 ea 09/09/23 11/07/24 History Jessica Plus test strips) ferrous sulfate 325 mg (65 mg 325 mg PO BID 09/09/23 11/07/24 History iron) tablet doxazosin 8 mg tablet 8 mg PO HS 11/07/24 11/07/24 History glipizide 5 mg tablet, extended 5 mg PO DAILY 11/07/24 11/07/24 History release 24 hr New Prescriptions to Start Prescriptions: Allergies Allergy/AdvReac Type Severity Reaction Status Date / Time No Known Allergies Allergy Verified 11/07/24 13:56 Assessment and Plan *Assessment and plan (1) Non-ST elevation [place] (NSTEMI): Status: Acute Category: Medical Code(s): I21.4 - Non-ST elevation (NSTEMI) myocardial infarction (2) RADHA (acute kidney injury): Status: Acute Category: Medical Code(s): N17.9 - Acute kidney failure, unspecified (3) CAD (coronary artery disease): Status: Chronic Category: Medical Code(s): I25.10 - Atherosclerotic heart disease of [place] coronary artery without angina pectoris (4) Acute exacerbation of CHF (congestive heart failure): Status: Acute Qualifiers: Heart failure type: unspecified Qualified Code(s): I50.9 - Heart failure, unspecified Category: Medical Code(s): I50.9 - Heart failure, unspecified (5) COPD (chronic obstructive pulmonary disease): Status: Chronic Category: Medical Code(s): J44.9 - Chronic obstructive pulmonary disease, unspecified Plan NSTEMI - known MV-CAD s/p CABGx1 1993 and stenting x1 1996 - 2 weeks worsening angina then rising serial trop to max of 4.[address] depressions on EKG - ECHO: Nml EF, no WMA - Cont DAPT, BB, statin, Heparin - Plan: Due to Eliquis last night and Cr up to 2.6 will wait and do [facility] tomorrow. Pt agreeable. HFpEF - proBNP 6,700 - ECHO here: nml EF, septal flattening, severe biatrial dilation, mod TR, AI, markedly elevated RVSP - symptoms improved after Bumex - consider SGLT-2 later, after RADHA Acute on Chronic Renal Insufficiency - Baseline Cr 2.1, up to 2.6 overnight - Bumex dc'd - monitor closely - check bilateral renal duplex PAF - rate controlled, cont BB - hold OAC for [facility] DM-II - A1C 6.8 - consider SGLT2 later COPD - RHF on ECHO - lungs clear - defer management to Hospitalist *CV stable. Hold diuretics and OAC. Renal Duplex today. C tomorrow.
[2024-11-08] MEDS: HEPARIN SODIUM,PORCINE/D5W 500 ML 20 UNIT IV (09:50)
[2024-11-08] MEDS: HEPARIN SODIUM 5,000 UNIT/ML VIAL 4000 UNIT IV (09:51)
[2024-11-08] MEDS: ALLOPURINOL 100MG TABLET 100 MG PO (09:51)
[2024-11-08] MEDS: CLOPIDOGREL 75MG TAB 75 MG PO (09:51)
[2024-11-08] MEDS: METOPROLOL SUCCINATE XL 25MG TABLET 25 MG PO (09:51)
[2024-11-08] MEDS: ASPIRIN EC 81MG TABLET 81 MG PO (09:51)
[2024-11-08] MEDS: HEPARIN DRIP CONSULT 1 EACH NOTAPPLIC (10:03)
--- NOTE | 2024-11-08 11:02 | CA_ITS ---
FINAL REPORT TECHNIQUE: Spectral and color Doppler exam CLINICAL HISTORY: HTN,CKD,ASCVD COMPARISON: None FINDINGS: DOPPLER RENAL VESSELS HISTORY: Hypertension . FINDINGS: Intrarenal resistive indices on the right are 0.69-0.78, normal . Intrarenal resistive indices on the left are 0.70-0.81, normal . Renal size is normal and symmetric. Right main renal artery systolic velocity: 192 cm/sec. Aortic-right renal artery flow velocity ratio: 1.3 COMMENT: No evidence of hemodynamically significant renal artery stenosis . Left main renal artery systolic velocity: 160 cm/sec. Aortic-left renal artery flow velocity ratio: 1.1 COMMENT: No evidence of hemodynamically significant renal artery stenosis . IMPRESSION: No evidence of hemodynamically significant renal artery stenosis CTA or gadolinium-enhanced MR may be considered as a more sensitive exam. Alternatively noncontrast MRI may be considered for assessing main renal arteries for stenosis as a more sensitive exam if the patient has renal insufficiency. Reviewed, Interpreted and Dictated by Dalila Montano MD Transcribed by Devora Adam Authenticated and [facility]
--- NOTE | 2024-11-08 11:25 | HMH.PHAHEP ---
[facility] Pharmacy Heparin Dosing Demographic Data Admission date:: 11/07/24 Date: 11/08/24 Time: 11:25 Allergies Allergy/AdvReac Type Severity Reaction Status Date / Time No Known Allergies Allergy Verified 11/07/24 13:56 Height: 1.78 m Weight: 87.3 kg Indication Medication therapy:: Heparin Current Active Problems (Updated 11/07/24 @ 21:12 by Mykel Puri MD) CAD (coronary artery disease) (Chronic) Acute exacerbation of CHF (congestive heart failure) (Acute) RADHA (acute kidney injury) (Acute) Non-ST elevation ID (NSTEMI) (Acute) COPD (chronic obstructive pulmonary disease) (Chronic) CHF (congestive heart failure) (Acute) Diabetes mellitus (Acute) CVA?: No Bleeding problem?: No Kidney disease?: No ID?: No Desired PTT range:: 50-75 seconds Labs Anticoagulation Lab Results:: 11/07/24 11/08/24 13:28 06:04 Hgb 10.5 L 9.9 L Hct 31.4 L 29.2 L Plt Count 163 138 L Monitoring Dose Monitor 1: Date: 11/08/24 Time: 09:30 PTT Result:: 28.6 (BASELINE) Infusion Rate:: 1,000 UNITS/HR Comment:: 4,000 UNIT BOLUS Dose Monitor 2: Date: 11/08/24 Time: 16:00 PTT Result:: 62.1 Infusion Rate:: 1,000 UNITS/HR Dose Monitor 3: Date: 11/08/24 Time: 22:36 PTT Result:: 66.1 Infusion Rate:: 1,000 UNITS/HR Dose Monitor 4: Date: 11/09/24 Time: 04:40 PTT Result:: 66.1 Infusion Rate:: 1,000 UNITS/HR Dose Monitor 5: Date: 11/09/24 Time: 11:05 PTT Result:: 60.6 Infusion Rate:: 1,000 UNITS/HR Core Measures Is INR > or = 2 at discharge?: No Most Recent Labs:: Laboratory Results - last 24 hr 11/07/24 13:26: D-Dimer 0.73 H 11/07/24 13:28: WBC 9.8, RBC 3.47 L, Hgb 10.5 L, Hct 31.4 L, MCV 90.5, MCH 30.3, MCHC 33.4, RDW 15.3, Plt Count 163, MPV 12.3 H, Neut % (Auto) 82.0 H, Lymph % (Auto) 8.3 L, [place] % (Auto) 7.1, Eos % (Auto) 1.6, Baso % (Auto) 0.5, Neut # (Auto) 8.0 H, Lymph # (Auto) 0.8, [place] # (Auto) 0.7, Eos # (Auto) 0.2, Baso # (Auto) 0.1, PT 11.9, INR 1.09, Sodium 139, Potassium 4.5, Chloride 109 H, Carbon Dioxide 17 L, Anion Gap 17.5 H, BUN 59 H, Creatinine 2.10 H, Estimated GFR 31 L, Est GFR ( Amer) 37 L, Glucose 232 H, Hemoglobin A1c 6.8 H, Calcium 9.1, Magnesium 2.0, Total Bilirubin 0.8, AST 32, ALT 29, Alkaline Phosphatase 120, Troponin I 0.05 H, NT-Pro-B Natriuret Pep 6790 H, Total Protein 7.5, Albumin 4.3, Globulin 3.2, Albumin/Globulin Ratio 1.3, TSH 3.09, Free T4 Index 4.6 L, Thyroxine (T4) 11.2 H, T3 Uptake 41 H, HCV Ab SHEFALI w/Rflx PCR Qn Negative, HIV Ag/Ab Combo Qual Negative 11/07/24 14:10: Urine Color Yellow, Urine Appearance Clear, Urine pH 5.5, Ur Specific [place] 1.015, Urine Protein Negative, Urine Glucose (UA) Trace, Urine Ketones Negative, Urine Blood Negative, Urine Nitrate Negative, Urine Bilirubin Negative, Urine Urobilinogen 0.2, Ur Leukocyte Esterase Negative, Urine RBC None, Urine WBC None, Ur Squamous Epith Cells Occasional, Urine Bacteria Trace, Hyaline Casts Occ 11/07/24 16:22: POC Glucose 225 H 11/07/24 16:23: Troponin I 0.19 H 11/07/24 19:27: Troponin I 1.15 H 11/07/24 20:12: POC Glucose 202 H 11/08/24 00:15: POC Glucose 61 L 11/08/24 00:56: Troponin I 4.18 H 11/08/24 01:50: POC Glucose 107 11/08/24 05:42: POC Glucose 117 H 11/08/24 06:04: WBC 7.1 D, RBC 3.20 L, Hgb 9.9 L, Hct 29.2 L, MCV 91.3, MCH 30.9, MCHC 33.9, RDW 15.4, Plt Count 138 L, MPV 12.7 H, Neut % (Auto) 68.0, Lymph % (Auto) 14.9, [place] % (Auto) 12.3 H, Eos % (Auto) 3.5, Baso % (Auto) 0.7, Neut # (Auto) 4.8, Lymph # (Auto) 1.1, [place] # (Auto) 0.9, Eos # (Auto) 0.3, Baso # (Auto) 0.1, Sodium 138, Potassium 4.3, Chloride 109 H, Carbon Dioxide 20 L, Anion Gap 13.3, BUN 63 H, Creatinine 2.60 H D, Estimated Creat Clear 29, Estimated GFR 24 L, Est GFR ( Amer) 29 L D, Glucose 121 H D, Calcium 8.8, Magnesium 2.3 D, Total Bilirubin 0.6, AST 41 D, ALT 27, Alkaline Phosphatase 97, Troponin I 4.36 H, Total Protein 6.7, Albumin 3.9, Globulin 2.8, Albumin/Globulin Ratio 1.4 11/08/24 09:15: APTT 28.6 L Were Heparin and Warfarin started on the same day?: No If not, why?: HEPARIN DRIP STOPPED AFTER CATH
[2024-11-08 12:33] LABS: POC Glucose,Bedside 140 (70-110)
--- NOTE | 2024-11-08 14:52 | EXP.PN ---
Subjective *Date: 11/08/24 *Time: 21:24 Interval history: Patient laying comfortably in bed this morning without acute distress. No chest pain, shortness of breath. Ambulating without assistance. Cardiology planning for [facility] in the morning, n.p.o. at midnight. Exam Data for Last 24 hours Vital signs and Labs for Last 24 Hours: Temp Pulse Resp BP Pulse Ox O2 Del Method 98.1 F 45 L 18 123/59 L 97 Room Air 11/08/24 12:00 11/08/24 12:00 11/08/24 12:00 11/08/24 12:00 11/08/24 12:00 11/08/24 12:37 Laboratory Results - last 24 hr 11/07/24 13:26: D-Dimer 0.73 H 11/07/24 13:28: Hemoglobin A1c 6.8 H, TSH 3.09, HCV Ab SHEFALI w/Rflx PCR Qn Negative, HIV Ag/Ab Combo Qual Negative 11/07/24 16:22: POC Glucose 225 H 11/07/24 16:23: Troponin I 0.19 H 11/07/24 19:27: Troponin I 1.15 H 11/07/24 20:12: POC Glucose 202 H 11/08/24 00:15: POC Glucose 61 L 11/08/24 00:56: Troponin I 4.18 H 11/08/24 01:50: POC Glucose 107 11/08/24 05:42: POC Glucose 117 H 11/08/24 06:04: WBC 7.1 D, RBC 3.20 L, Hgb 9.9 L, Hct 29.2 L, MCV 91.3, MCH 30.9, MCHC 33.9, RDW 15.4, Plt Count 138 L, MPV 12.7 H, Neut % (Auto) 68.0, Lymph % (Auto) 14.9, [place] % (Auto) 12.3 H, Eos % (Auto) 3.5, Baso % (Auto) 0.7, Neut # (Auto) 4.8, Lymph # (Auto) 1.1, [place] # (Auto) 0.9, Eos # (Auto) 0.3, Baso # (Auto) 0.1, Sodium 138, Potassium 4.3, Chloride 109 H, Carbon Dioxide 20 L, Anion Gap 13.3, BUN 63 H, Creatinine 2.60 H D, Estimated Creat Clear 29, Estimated GFR 24 L, Est GFR ( Amer) 29 L D, Glucose 121 H D, Calcium 8.8, Magnesium 2.3 D, Total Bilirubin 0.6, AST 41 D, ALT 27, Alkaline Phosphatase 97, Troponin I 4.36 H, Total Protein 6.7, Albumin 3.9, Globulin 2.8, Albumin/Globulin Ratio 1.4 11/08/24 09:15: APTT 28.6 L 11/08/24 12:25: POC Glucose 140 H Temp Pulse Resp BP Pulse Ox O2 Del Method 97.5 F L 63 17 126/63 98 Room Air 11/08/24 08:00 11/08/24 08:00 11/08/24 08:00 11/08/24 08:00 11/08/24 08:00 11/08/24 09:00 Laboratory Results - last 24 hr 11/07/24 13:26: D-Dimer 0.73 H 11/07/24 13:28: WBC 9.8, RBC 3.47 L, Hgb 10.5 L, Hct 31.4 L, MCV 90.5, MCH 30.3, MCHC 33.4, RDW 15.3, Plt Count 163, MPV 12.3 H, Neut % (Auto) 82.0 H, Lymph % (Auto) 8.3 L, [place] % (Auto) 7.1, Eos % (Auto) 1.6, Baso % (Auto) 0.5, Neut # (Auto) 8.0 H, Lymph # (Auto) 0.8, [place] # (Auto) 0.7, Eos # (Auto) 0.2, Baso # (Auto) 0.1, PT 11.9, INR 1.09, Sodium 139, Potassium 4.5, Chloride 109 H, Carbon Dioxide 17 L, Anion Gap 17.5 H, BUN 59 H, Creatinine 2.10 H, Estimated GFR 31 L, Est GFR ( Amer) 37 L, Glucose 232 H, Hemoglobin A1c 6.8 H, Calcium 9.1, Magnesium 2.0, Total Bilirubin 0.8, AST 32, ALT 29, Alkaline Phosphatase 120, Troponin I 0.05 H, NT-Pro-B Natriuret Pep 6790 H, Total Protein 7.5, Albumin 4.3, Globulin 3.2, Albumin/Globulin Ratio 1.3, TSH 3.09, Free T4 Index 4.6 L, Thyroxine (T4) 11.2 H, T3 Uptake 41 H, HCV Ab SHEFALI w/Rflx PCR Qn Negative, HIV Ag/Ab Combo Qual Negative 11/07/24 14:10: Urine Color Yellow, Urine Appearance Clear, Urine pH 5.5, Ur Specific [place] 1.015, Urine Protein Negative, Urine Glucose (UA) Trace, Urine Ketones Negative, Urine Blood Negative, Urine Nitrate Negative, Urine Bilirubin Negative, Urine Urobilinogen 0.2, Ur Leukocyte Esterase Negative, Urine RBC None, Urine WBC None, Ur Squamous Epith Cells Occasional, Urine Bacteria Trace, Hyaline Casts Occ 11/07/24 16:22: POC Glucose 225 H 11/07/24 16:23: Troponin I 0.19 H 11/07/24 19:27: Troponin I 1.15 H 11/07/24 20:12: POC Glucose 202 H 11/08/24 00:15: POC Glucose 61 L 11/08/24 00:56: Troponin I 4.18 H 11/08/24 01:50: POC Glucose 107 11/08/24 05:42: POC Glucose 117 H 11/08/24 06:04: WBC 7.1 D, RBC 3.20 L, Hgb 9.9 L, Hct 29.2 L, MCV 91.3, MCH 30.9, MCHC 33.9, RDW 15.4, Plt Count 138 L, MPV 12.7 H, Neut % (Auto) 68.0, Lymph % (Auto) 14.9, [place] % (Auto) 12.3 H, Eos % (Auto) 3.5, Baso % (Auto) 0.7, Neut # (Auto) 4.8, Lymph # (Auto) 1.1, [place] # (Auto) 0.9, Eos # (Auto) 0.3, Baso # (Auto) 0.1, Sodium 138, Potassium 4.3, Chloride 109 H, Carbon Dioxide 20 L, Anion Gap 13.3, BUN 63 H, Creatinine 2.60 H D, Estimated Creat Clear 29, Estimated GFR 24 L, Est GFR ( Amer) 29 L D, Glucose 121 H D, Calcium 8.8, Magnesium 2.3 D, Total Bilirubin 0.6, AST 41 D, ALT 27, Alkaline Phosphatase 97, Troponin I 4.36 H, Total Protein 6.7, Albumin 3.9, Globulin 2.8, Albumin/Globulin Ratio 1.4 11/08/24 09:15: APTT 28.6 L I & O for Last 24 hours: Intake & Output 11/05/24 11/06/24 11/07/24 11/08/24 23:59 23:59 23:59 23:59 Intake Total 510 / 510 Output Total 275 / 275 Balance 235 / 235 Weight 86.183 kg 87.3 kg Intake & Output 11/05/24 11/06/24 11/07/24 11/08/24 23:59 23:59 23:59 23:59 Intake Total 240 / 240 Output Total 275 / 275 Balance -35 / -35 Weight 190 lb 192 lb 7 oz Constitutional Constitutional: no acute distress and cooperative *Routine HEENT Exam Eye: Present PERRL *Routine Respiratory Exam Respiratory: Present CTA bilaterally; Absent accessory muscle use, wheezes or crackles *Routine Cardiovascular Exam Cardiovascular: Present RRR, Normal S1 and Normal S2; Absent murmur, gallop or rubs *Routine Abdominal Exam Abdominal: Present soft; Absent tenderness *Routine Extremities Exam Extremities: Present pulses intact; Absent cyanosis or edema *Routine Skin Exam Skin: Present intact; Absent erythema or wounds *Routine Neurological Exam Neurological: Present alert and oriented X3 Routine Psychiatric Exam Psychiatric: Present cooperative Assessment and Plan *Assessment and plan (1) CHF (congestive heart failure): Status: Acute Qualifiers: Heart failure type: diastolic Heart failure chronicity: acute on chronic Qualified Code(s): I50.33 - Acute on chronic diastolic (congestive) heart failure Category: Medical Code(s): I50.9 - Heart failure, unspecified (2) Diabetes mellitus: Status: Acute Qualifiers: Diabetes mellitus type: type 2 Diabetes mellitus penitentiary insulin use: with ad terminal makeup operator use Diabetes mellitus complication status: with other specified complication Qualified Code(s): E11.69 - Type 2 diabetes mellitus with other specified complication; Z79.4 - snf (current) use of insulin Category: Medical Code(s): E11.9 - Type 2 diabetes mellitus without complications (3) COPD (chronic obstructive pulmonary disease): Status: Chronic Category: Medical Code(s): J44.9 - Chronic obstructive pulmonary disease, unspecified (4) Non-ST elevation [place] (NSTEMI): Status: Acute Category: Medical Code(s): I21.4 - Non-ST elevation (NSTEMI) myocardial infarction (5) RADHA (acute kidney injury): Status: Acute Category: Medical Code(s): N17.9 - Acute kidney failure, unspecified (6) CAD (coronary artery disease): Status: Chronic Category: Medical Code(s): I25.10 - Atherosclerotic heart disease of [place] coronary artery without angina pectoris Plan Venancio Willis is a 79-year-old male with history of CABG and heart cath 30 years ago, insulin-dependent diabetes, COPD, CHF, CKD versus RADHA, BPH who presents with 2 weeks of worsening chest pain and shortness of breath with exertion who was admitted for HFpEF exacerbation and NSTEMI. NSTEMI CHF exacerbation, acute on chronic HFpEF History of CABG/CAD Hyperlipidemia - Uptrending troponin to 4.36 today, EKG does have anterior septal depressions. ? Volume overload improved with Bumex diuresis in the ED. Holding further diuresis given significant bump in creatinine. See below. ? Started heparin drip given significant uptrend in troponins. ? Cardiology consulted, planning for [facility] tomorrow as patient has acute on chronic renal failure today, and received Eliquis last night. ? ECHO LVEF 55%, with no wall motion abnormalities. However, however, RVSP greater than 60 mmHg though this was before diuresis. Will benefit from outpatient sleep study to evaluate for GUY. ? Continue aspirin, Plavix, atorvastatin. Held metoprolol given significant though asymptomatic bradycardia as low as 30s bpm. High risk for falls with this HR and age. RADHA - Creatinine bumped to 2.6 with diuresis. Holding further diuresis at this time. ? Follow-up repeat BMP in the morning. Diabetes: A1c 6.8. Continue sliding scale insulin with fingersticks ACHS. Unclear patient's baseline insulin, will hold basal for now pending clarification of med rec. COPD: No wheezing on exam. Will consider DuoNebs if develops dyspnea or wheeze. BPH: Continue tamsulosin 0.4 mg nightly Gout: Continue allopurinol 100 mg daily Full code Heparin drip Cardiac diet, n.p.o. after midnight
[2024-11-08 17:19] LABS: PTT Heparin (inpatient only) 62.1 Seconds (50-75)
[2024-11-08] MEDS: humaLOG 100 UNITS/ML 10ML VIAL (SSI) SUBCUT (17:19)
[2024-11-08 17:21] LABS: POC Glucose,Bedside 200 (70-110)
--- NOTE | 2024-11-08 17:29 | PC.NURSE ---
notified [facility] pharmacy of ptt results
--- NOTE | 2024-11-08 17:35 | PC.NURSE ---
Pt is alert and oriented x3. Lungs are clear and he remains on RA. He's denied cp thus far this shift. He's been controlled afib on tele. Glucose was 140 and 200 at checks. Treated per SSI. Heparin drip is currently infusing per MAR. Taran notified of current ptt results, no changes to rate. Next ptt ordered for 2229. Significant other is at bedside. They have no questions or concerns at this time.
[2024-11-08 20:14] LABS: POC Glucose,Bedside 228 (70-110)
[2024-11-08] MEDS: DOXAZOSIN 4MG TAB 8 MG PO (20:14)
[2024-11-08] MEDS: TAMSULOSIN 0.4MG CAPSULE 0.4 MG PO (20:14)
[2024-11-08] MEDS: ATORVASTATIN 40MG TABLET 80 MG PO (20:15)
[2024-11-08 22:53] LABS: PTT Heparin (inpatient only) 66.1 Seconds (50-75)
[2024-11-09] VITALS (20 sets, daily range): BP systolic 119–172; BP diastolic 50–72; PULSE 40–62; RESP 14–18; TEMP 36.3–36.9; O2SAT 92–97; BMI 27.7
--- NOTE | 2024-11-09 02:07 | PC.NURSE ---
PT IS RESTING IN BED. ALERT AND ORIENTED X4. NO COMPLAINTS OF CP OR SOA. AFIB ON TELEMETRY. PT'S HR MAINTAINS 40-50 BPM. WHILE SLEEPING THIS SHIFT PT'S HR DROPPED TO 28. NOTIFIED HOSPITALIST. PT'S BP WAS TAKEN 122/51 AND HR INCREASED TO 54 WHEN PT WAS AWAKE. LUNG SOUNDS CLEAR. ABDOMEN SOFT/NON TENDER WITH ACTIVE BOWEL SOUNDS. WILL CONTINUE TO MONITOR.
[2024-11-09 05:39] LABS: POC Glucose,Bedside 158 (70-110)
[2024-11-09 05:47] LABS: PTT Heparin (inpatient only) 66.1 Seconds (50-75)
--- NOTE | 2024-11-09 08:08 | EXP.CARD.PN ---
Subjective Subjective Date: 11/09/24 Time: 07:30 Interval history: No events overnight. Patient is chest pain-free. Morning labs are pending. He is still agreeable to left heart cath today. Exam Data for Last 24 hours Vital signs and Labs for Last 24 Hours: Temp Pulse Resp BP Pulse Ox O2 Del Method 98.0 F 60 18 139/50 L 96 Room Air 11/09/24 04:00 11/09/24 04:00 11/09/24 04:00 11/09/24 04:00 11/09/24 04:00 11/09/24 07:53 Laboratory Results - last 24 hr 11/08/24 09:15: APTT 28.6 L 11/08/24 12:25: POC Glucose 140 H 11/08/24 16:17: APTT 62.1 11/08/24 17:14: POC Glucose 200 H 11/08/24 19:52: POC Glucose 228 H 11/08/24 22:36: APTT 66.1 11/09/24 04:40: APTT 66.1 11/09/24 05:32: POC Glucose 158 H I & O for Last 24 hours: Intake & Output 11/06/24 11/07/24 11/08/24 11/09/24 23:59 23:59 23:59 23:59 Intake Total 870 / 870 438 / 438 Output Total 975 / 975 250 / 250 Balance -105 / -105 188 / 188 Weight 190 lb 192 lb 7.417 oz 193 lb 9.6 oz Constitutional Constitutional: no acute distress and cooperative *Routine HEENT Exam Eye: Present PERRL *Routine Respiratory Exam Respiratory: Present CTA bilaterally; Absent accessory muscle use, wheezes or crackles *Routine Cardiovascular Exam Cardiovascular: Present RRR, Normal S1 and Normal S2; Absent murmur, gallop or rubs *Routine Abdominal Exam Abdominal: Present soft; Absent tenderness *Routine Extremities Exam Extremities: Present pulses intact; Absent cyanosis or edema *Routine Skin Exam Skin: Present intact; Absent erythema or wounds *Routine Neurological Exam Neurological: Present alert and oriented X3 Routine Psychiatric Exam Psychiatric: Present cooperative Progress Note: A&P Assessment and plan (1) Non-ST elevation MD (NSTEMI): Status: Acute (2) CHF (congestive heart failure): Status: Acute (3) Diabetes mellitus: Status: Acute (4) COPD (chronic obstructive pulmonary disease): Status: Chronic (5) RADHA (acute kidney injury): Status: Acute (6) CAD (coronary artery disease): Status: Chronic Assessment and Plan Assessment and Plan for All Diagnoses:: NSTEMI - 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 - Plan: Due to Eliquis last night and Cr up to 2.6 will wait and do [facility] tomorrow. Pt agreeable. 11/09: CV stable. Morning labs pending. Eliquis off >36h. [facility] today. HFpEF - proBNP 6,700 - ECHO here: nml EF, septal flattening, severe biatrial dilation, mod TR, AI, markedly elevated RVSP - symptoms improved after Bumex - consider SGLT-2 later, after RADHA 11/09: Euvolemic. Med adjustments post cath. Acute on Chronic Renal Insufficiency - Baseline Cr 2.1, up to 2.6 overnight - Bumex dc'd - monitor closely - check bilateral renal duplex 11/09: Morning labs pending. PAF - rate controlled, cont BB - hold OAC for [facility] DM-II - A1C 6.8 - consider SGLT2 later COPD - RHF on ECHO - lungs clear - defer management to Hospitalist 11/09: CV stable. [facility] today pending morning labs. Addendum: Patient had successful stenting of left main and left circumflex arteries today. Given his CKD will keep him overnight to observe for contrast-induced nephropathy.
--- NOTE | 2024-11-09 08:12 | IR_ITS ---
APPROVED REPORT Patient Location: Inpatient [facility] [employer]: [facility] RT (R) PROCEDURES Selective coronary angiogram Selective engagement left internal mammary artery to the LAD Bilateral selective renal angiogram Drug-eluting stent deployment to the ostial proximal left main artery Drug-eluting stent deployment to the proximal circumflex artery INDICATION Acute non-ST elevation myocardial infarction, Coronary artery disease, History of coronary bypass surgery, Chronic renal failure creatinine 2.2, Hypertension, Suspect renovascular hypertension with renal artery stenosis Informed consent was obtained prior to the procedure. COMPLICATIONS None Estimated Blood Loss: Less than 10 mls TECHNIQUE One percent lidocaine used to anesthetize the right groin. The right femoral artery was accessed via the Seldinger technique and a 5 Frisian sheath was placed in the right femoral artery. A JL 4, JR4 catheter were used to perform left heart catheterization, left ventriculogram selective coronary angiography and selective engagement of the left internal mammary artery. The JR4 catheter was used to perform bilateral selective renal angiography. At the end of the diagnostic angiogram therapeutic Was administered given a therapeutic ACT and the 5 Frisian sheath was exchanged for a 6 Frisian sheath. A JL 4 guide catheter was placed in left main artery followed by wire being placed into the circumflex artery. A 4 mm x 12 mm Pag[place] frontier stent was deployed at 24 joce in the ostial proximal segment of left main artery. Following this a 3 mm x 18 mm Marcos frontier stent was placed in the proximal circumflex artery and deployed at 20 joce reducing the stenosis to 0%. A 5 mm x 8 mm noncompliant balloon was deployed throughout the 4 mm stent at 20 joce to post dilate. At the end of the procedure after achieving excellent angiographic results with KIAN-3 flow being present before and after the procedure the apparatus was removed the groin is reprepped closure change sheath was removed continue stasis was achieved using Perclose device patient was transferred to the postop putting in stable condition ANGIOGRAPHIC RESULTS The left main artery Had an ostial 90% stenosis The left anterior descending artery Has proximal 20 and 30% calcified stenosis and then occluded after a large first diagonal artery The circumflex artery Nondominant yet still large with a proximal calcified concentric 90% stenosis The right coronary artery Large and dominant with proximal and mid vessel 20 and 30% calcified stenosis The BOWMAN ventriculogram reveals Not performed The left ventricular end-diastolic pressure Not measured SANDOVAL to LAD is widely patent. There is no retrograde filling of the diagonal artery Right renal artery singular normal Left renal artery singular normal IMPRESSION Critical ostial left main disease which supplied a large first diagonal artery and a large nondominant circumflex system Successful stenting of the ostial left main artery severe disease reduced to 0% with 1 drug-eluting stent Successful stenting of the proximal circumflex artery severe to critical disease reduced to 0% with 1 drug-eluting stent Normal renal arteries PLAN 1. Plavix Eliquis and aspirin for 1 month then discontinue aspirin 2. LDL less than 55 to achieve that high intensity statin 3. Avoidance of tobacco products 4. Cardiac rehabilitation Electronically signed by : Rajinder Garcia MD 11/09/2024 14:00:50
[2024-11-09] MEDS: ASPIRIN EC 81MG TABLET 81 MG PO (08:21)
[2024-11-09] MEDS: CLOPIDOGREL 75MG TAB 75 MG PO (08:21)
[2024-11-09] MEDS: ALLOPURINOL 100MG TABLET 100 MG PO (08:21)
[2024-11-09 08:25] LABS: Albumin Level 3.7 g/dl (3.5-5.0); Chloride 110 mmol/L (98-107); Potassium 4.4 mmoL/L (3.5-5.1); Sodium 139 mmol/L (136-145)
[2024-11-09 08:28] LABS: Alanine Aminotransferase 24 U/L (12-78); Albumin/Globulin Ratio 1.3 (1.1-1.8); Alkaline Phosphatase 93 U/L (38-126); Anion Gap 14.4 mEq/L (5-15); Aspartate Amino Transferase 30 U/L (17-59); Bilirubin,Total 0.7 mg/dl (0.2-1.3); Blood Urea Nitrogen 64 mg/dl (9-20); Carbon Dioxide 19 mmol/L (22.0-30.0); Creatinine Clearance Estimated 33 mL/min (50-200); Estimated Glomerular Filt Rate 28 ml/min (>60); GFR (African American) 34 ML/MIN (>60); Globulin 2.8 g/dL (1.3-3.2); Total Protein,Serum 6.5 g/dl (6.3-8.2)
[2024-11-09 08:29] LABS: Calcium 8.9 mg/dl (8.4-10.2); Glucose 161 mg/dl (74-100)
[2024-11-09 08:46] LABS: Troponin I 1.87 ng/ml (0.00-0.034)
[2024-11-09] MEDS: 0.9 % SODIUM CHLORIDE 1000ML 1,000 ML 500 ML IV (09:21)
[2024-11-09 11:21] LABS: POC Glucose,Bedside 164 (70-110)
[2024-11-09 11:27] LABS: PTT Heparin (inpatient only) 60.6 Seconds (50-75)
[2024-11-09] MEDS: HEPARIN SODIUM,PORCINE/D5W 500 ML 20 UNIT IV (11:42)
--- NOTE | 2024-11-09 13:01 | PC.NURSE ---
Patient to laboratory technical specialist via wheelchair. Family to waiting room with laboratory technical specialist staff
[2024-11-09] MEDS: 0.9 % SODIUM CHLORIDE 500 ML 25 ML IV (13:09)
[2024-11-09] MEDS: diphenhydrAMINE 50MG/ML VIAL 50 MG IV (13:09)
[2024-11-09] MEDS: HEPARIN 1,000 UNITS/500ML NS (CATH LAB) 3000 UNIT IV (13:09)
[2024-11-09] MEDS: LIDOCAINE 1% 10ML MDV 20 ML IJ (13:10)
[2024-11-09] MEDS: HEPARIN 1,000 UNITS/ML 10ML VIAL (CATH LAB) 10000 UNIT IV (13:40)
[2024-11-09] MEDS: FENTANYL 100MCG/2ML VIAL 50 MCG IV (13:54)
[2024-11-09] MEDS: MIDAZOLAM HCL 1MG/ML 5ML VIAL 1 MG IV (13:54)
[2024-11-09] MEDS: IOPAMIDOL-370 (76%);100ML BOTTLE 50 ML IV (14:11)
[2024-11-09 14:16] LABS: CATHL Activated Clotting Time 310 SEC (74-125)
[2024-11-09 14:17] LABS: CATHL Activated Clotting Time 310 SEC (74-125)
[2024-11-09 17:00] LABS: POC Glucose,Bedside 142 (70-110)
--- NOTE | 2024-11-09 17:31 | PC.NURSE ---
Patient alert and oriented. Bradycardic but asymptomatic. Other vital signs stable. Heart cath completed today with patient receiving 2 stents. Right femoral dressing dry and intact. Right pedal pulses 2+. Tolerating oral intake. Will continue to monitor tonight and possible discharge home tomorrow. Family at bedside throughout shift
[2024-11-09] MEDS: TAMSULOSIN 0.4MG CAPSULE 0.4 MG PO (20:06)
[2024-11-09] MEDS: DOXAZOSIN 4MG TAB 8 MG PO (20:06)
[2024-11-09] MEDS: ATORVASTATIN 40MG TABLET 80 MG PO (20:06)
[2024-11-09 20:40] LABS: POC Glucose,Bedside 179 (70-110)
--- NOTE | 2024-11-09 21:38 | P.PN_ITS ---
Subjective *Date: 11/09/24 *Time: 21:38 Interval history: Doing well today, tolerated PCI with 2 stents well. Anticipate discharge in the morning if kidney function is stable. Exam Data for Last 24 hours Vital signs and Labs for Last 24 Hours: Temp Pulse Resp BP Pulse Ox O2 Del Method 97.6 F 59 L 16 135/66 96 Room Air 11/09/24 20:00 11/09/24 20:00 11/09/24 20:00 11/09/24 20:00 11/09/24 20:00 11/09/24 20:00 Laboratory Results - last 24 hr 11/08/24 22:36: APTT 66.1 11/09/24 04:40: APTT 66.1 11/09/24 05:32: POC Glucose 158 H 11/09/24 08:08: WBC Cancelled, Corrected WBC Cancelled, RBC Cancelled, Hgb Cancelled, Hct Cancelled, MCV Cancelled, MCH Cancelled, MCHC Cancelled, RDW Cancelled, Plt Count Cancelled, MPV Cancelled, Neut % (Auto) Cancelled, Lymph % (Auto) Cancelled, [place]corn % (Auto) Cancelled, Eos % (Auto) Cancelled, Baso % (Auto) Cancelled, Neut # (Auto) Cancelled, Lymph # (Auto) Cancelled, [place] # (Auto) Cancelled, Eos # (Auto) Cancelled, Baso # (Auto) Cancelled, Sodium 139, Potassium 4.4, Chloride 110 H, Carbon Dioxide 19 L, Anion Gap 14.4, BUN 64 H, Creatinine 2.30 H, Estimated Creat Clear 33, Estimated GFR 28 L, Est GFR ( Amer) 34 L, Glucose 161 H, Calcium 8.9, Total Bilirubin 0.7, AST 30 D, ALT 24, Alkaline Phosphatase 93, Troponin I 1.87 H, Total Protein 6.5, Albumin 3.7, Globulin 2.8, Albumin/Globulin Ratio 1.3 11/09/24 11:05: APTT 60.6 11/09/24 11:13: POC Glucose 164 H 11/09/24 14:52: Activated Clotting Time 310 H* 11/09/24 14:52: Activated Clotting Time 310 H* 11/09/24 16:47: POC Glucose 142 H 11/09/24 20:22: POC Glucose 179 H I & O for Last 24 hours: Intake & Output 11/06/24 11/07/24 11/08/24 11/09/24 23:59 23:59 23:59 23:59 Intake Total 870 / 870 1038 / 1038 Output Total 975 / 975 500 / 500 Balance -105 / -105 538 / 538 Weight 86.183 kg 87.3 kg 87.815 kg Constitutional Constitutional: no acute distress and cooperative *Routine HEENT Exam Eye: Present PERRL *Routine Respiratory Exam Respiratory: Present CTA bilaterally; Absent accessory muscle use, wheezes or crackles *Routine Cardiovascular Exam Cardiovascular: Present RRR, Normal S1 and Normal S2; Absent murmur, gallop or rubs *Routine Abdominal Exam Abdominal: Present soft; Absent tenderness *Routine Extremities Exam Extremities: Present pulses intact; Absent cyanosis or edema *Routine Skin Exam Skin: Present intact; Absent erythema or wounds *Routine Neurological Exam Neurological: Present alert and oriented X3 Routine Psychiatric Exam Psychiatric: Present cooperative Assessment and Plan *Assessment and plan (1) CHF (congestive heart failure): Status: Acute Qualifiers: Heart failure type: diastolic Heart failure chronicity: acute on chronic Qualified Code(s): I50.33 - Acute on chronic diastolic (congestive) heart failure Category: Medical Code(s): I50.9 - Heart failure, unspecified (2) Diabetes mellitus: Status: Acute Qualifiers: Diabetes mellitus type: type 2 Diabetes mellitus buttermaker continuous churn insulin use: with long-term use Diabetes mellitus complication status: with other specified complication Qualified Code(s): E11.69 - Type 2 diabetes mellitus with other specified complication; Z79.4 - buttermaker continuous churn (current) use of insulin Category: Medical Code(s): E11.9 - Type 2 diabetes mellitus without complications (3) COPD (chronic obstructive pulmonary disease): Status: Chronic Category: Medical Code(s): J44.9 - Chronic obstructive pulmonary disease, unspecified (4) Non-ST elevation AL (NSTEMI): Status: Acute Category: Medical Code(s): I21.4 - Non-ST elevation (NSTEMI) myocardial infarction (5) RADHA (acute kidney injury): Status: Acute Category: Medical Code(s): N17.9 - Acute kidney failure, unspecified (6) CAD (coronary artery disease): Status: Chronic Category: Medical Code(s): I25.10 - Atherosclerotic heart disease of [place] coronary artery without angina pectoris Plan Venancio Willis is a 79-year-old male with history of CABG and heart cath 30 years ago, insulin-dependent diabetes, COPD, CHF, CKD versus RADHA, BPH who presents with 2 weeks of worsening chest pain and shortness of breath with exertion who was admitted for HFpEF exacerbation and NSTEMI. NSTEMI CHF exacerbation, acute on chronic HFpEF History of CABG/CAD Hyperlipidemia - S/p PCI to 11/09/2024 with GUICHO x 2 in ostial left main, [employer]. Patient tolerated procedure well. ? ECHO LVEF 55%, with no wall motion abnormalities. However, however, RVSP greater than 60 mmHg though this was before diuresis. Will benefit from outpatient sleep study to evaluate for GUY. ? Continue aspirin, Plavix, atorvastatin. Held metoprolol given significant though asymptomatic bradycardia as low as 30s bpm. High risk for falls with this HR and age. ? Follow-up renal function tomorrow, anticipate discharge if stable. RADHA - Creatinine improved to 2.3 today, follow-up CMP in the morning post PCI. Diabetes: A1c 6.8. Continue sliding scale insulin with fingersticks ACHS. Unclear patient's baseline insulin, will hold basal for now pending clarification of med rec. COPD: No wheezing on exam. Will consider DuoNebs if develops dyspnea or wheeze. BPH: Continue tamsulosin 0.4 mg nightly Gout: Continue allopurinol 100 mg daily Full code Heparin drip Cardiac diet, n.p.o. after midnight
[2024-11-09] MEDS: 0.9 % SODIUM CHLORIDE 1000ML 1,000 ML 50 ML IV (22:29)
[2024-11-10] VITALS: BP 133/84; PULSE 50; PULSE 52; RESP 16; TEMP 36.8; O2SAT 95
[2024-11-10 04:00] VITALS: BP 139/54; PULSE 58; PULSE 70; RESP 17; TEMP 36.6; O2SAT 95; BMI 27.5
[2024-11-10 05:50] LABS: POC Glucose,Bedside 200 (70-110)
[2024-11-10] MEDS: humaLOG 100 UNITS/ML 10ML VIAL (SSI) SUBCUT ×2 (05:58→11:47)
--- NOTE | 2024-11-10 06:19 | PC.NURSE ---
pt has slept all night. walked independently to the br with no issues. hr continues to be robina in the 40s. cath site to rt femoral has dsg cdi with a slight bruise visible under dsg and no drainage.no compaints t/o the night, cb within reach. SO at bs
[2024-11-10 06:35] LABS: Basophils % 0.5 % (0.1-2.0); Eosinophils # 0.2 K/mm3 (0.0-0.4); Eosinophils % 3.6 % (0.1-12.0); Hematocrit 26.6 % (42.0-52.0); Hemoglobin 8.8 g/dL (14.1-18.0); Lymphocytes # 0.8 K/mm3 (0.7-4.5); Lymphocytes % 12.2 % (10-50); Mean Corpuscular HGB Conc 33.1 g/dL (31.8-35.4); Mean Corpuscular Hemoglobin 30.7 pg (27.0-31.2); Mean Corpuscular Volume 92.7 fl (80-94); Monocytes # 0.8 K/mm3 (0.1-1.0); Monocytes % 12.1 % (1.7-9.3); Neutrophils # 4.6 K/mm3 (1.8-7.8); Neutrophils % 71.1 % (37.0-80.0); Platelet Count 129 K/mm3 (142-424); Red Blood Count 2.87 M/mm3 (4.60-6.20); Red Cell Distribution Width 15.2 % (11.5-17.5); White Blood Count 6.5 K/mm3 (4.8-10.8)
[2024-11-10 06:45] LABS: Albumin Level 3.1 g/dl (3.5-5.0); Chloride 115 mmol/L (98-107); Sodium 139 mmol/L (136-145)
[2024-11-10 06:46] LABS: Potassium 4.2 mmoL/L (3.5-5.1)
[2024-11-10 06:48] LABS: Alanine Aminotransferase 19 U/L (12-78); Albumin/Globulin Ratio 1.2 (1.1-1.8); Alkaline Phosphatase 76 U/L (38-126); Anion Gap 10.2 mEq/L (5-15); Aspartate Amino Transferase 25 U/L (17-59); Bilirubin,Total 0.5 mg/dl (0.2-1.3); Blood Urea Nitrogen 54 mg/dl (9-20); Carbon Dioxide 18 mmol/L (22.0-30.0); Creatinine Clearance Estimated 40 mL/min (50-200); Estimated Glomerular Filt Rate 35 ml/min (>60); GFR (African American) 42 ML/MIN (>60); Globulin 2.6 g/dL (1.3-3.2); Total Protein,Serum 5.7 g/dl (6.3-8.2)
[2024-11-10 06:49] LABS: Calcium 8.3 mg/dl (8.4-10.2); Glucose 167 mg/dl (74-100)
[2024-11-10 08:00] VITALS: BP 137/48; PULSE 51; PULSE 80; RESP 19; TEMP 36.4; O2SAT 96
--- NOTE | 2024-11-10 08:02 | EXP.CARD.PN ---
Subjective Subjective Date: 11/10/24 Time: 07:30 Interval history: Successful stenting of critical left main and left circumflex arteries yesterday. Patient kept overnight for observation due to CKD. This morning's labs show creatinine improved to 1.9. Vitals are stable. Patient denies chest pain and groin pain. Cath site looks excellent on inspection and palpation. Patient has no specific questions or concerns and feels ready for discharge. Exam Data for Last 24 hours Vital signs and Labs for Last 24 Hours: Temp Pulse Resp BP Pulse Ox O2 Del Method 97.8 F 58 L 17 139/54 L 95 Room Air 11/10/24 04:00 11/10/24 04:00 11/10/24 04:00 11/10/24 04:00 11/10/24 04:00 11/10/24 06:32 Laboratory Results - last 24 hr 11/09/24 08:08: WBC Cancelled, Corrected WBC Cancelled, RBC Cancelled, Hgb Cancelled, Hct Cancelled, MCV Cancelled, MCH Cancelled, MCHC Cancelled, RDW Cancelled, Plt Count Cancelled, MPV Cancelled, Neut % (Auto) Cancelled, Lymph % (Auto) Cancelled, Crowley % (Auto) Cancelled, Eos % (Auto) Cancelled, Baso % (Auto) Cancelled, Neut # (Auto) Cancelled, Lymph # (Auto) Cancelled, Crowley # (Auto) Cancelled, Eos # (Auto) Cancelled, Baso # (Auto) Cancelled, Sodium 139, Potassium 4.4, Chloride 110 H, Carbon Dioxide 19 L, Anion Gap 14.4, BUN 64 H, Creatinine 2.30 H, Estimated Creat Clear 33, Estimated GFR 28 L, Est GFR ( Amer) 34 L, Glucose 161 H, Calcium 8.9, Total Bilirubin 0.7, AST 30 D, ALT 24, Alkaline Phosphatase 93, Troponin I 1.87 H, Total Protein 6.5, Albumin 3.7, Globulin 2.8, Albumin/Globulin Ratio 1.3 11/09/24 11:05: APTT 60.6 11/09/24 11:13: POC Glucose 164 H 11/09/24 14:52: Activated Clotting Time 310 H* 11/09/24 14:52: Activated Clotting Time 310 H* 11/09/24 16:47: POC Glucose 142 H 11/09/24 20:22: POC Glucose 179 H 11/10/24 05:32: POC Glucose 200 H 11/10/24 06:18: WBC 6.5, RBC 2.87 L, Hgb 8.8 L, Hct 26.6 L, MCV 92.7, MCH 30.7, MCHC 33.1, RDW 15.2, Plt Count 129 L, MPV 12.0 H, Neut % (Auto) 71.1, Lymph % (Auto) 12.2, Crowley % (Auto) 12.1 H, Eos % (Auto) 3.6, Baso % (Auto) 0.5, Neut # (Auto) 4.6, Lymph # (Auto) 0.8, Crowley # (Auto) 0.8, Eos # (Auto) 0.2, Baso # (Auto) 0.0, Sodium 139, Potassium 4.2, Chloride 115 H, Carbon Dioxide 18 L, Anion Gap 10.2, BUN 54 H, Creatinine 1.90 H, Estimated Creat Clear 40, Estimated GFR 35 L, Est GFR ( Amer) 42 L D, Glucose 167 H, Calcium 8.3 L, Total Bilirubin 0.5, AST 25, ALT 19, Alkaline Phosphatase 76, Total Protein 5.7 L, Albumin 3.1 L D, Globulin 2.6, Albumin/Globulin Ratio 1.2 I & O for Last 24 hours: Intake & Output 11/07/24 11/08/24 11/09/24 11/10/24 23:59 23:59 23:59 23:59 Intake Total 870 / 870 1038 / 1038 Output Total 975 / 975 850 / 850 500 / 500 Balance -105 / -105 188 / 188 -500 / -500 Weight 190 lb 192 lb 7.417 oz 193 lb 9.6 oz 192 lb 8 oz Constitutional Constitutional: no acute distress and cooperative *Routine HEENT Exam Eye: Present PERRL *Routine Respiratory Exam Respiratory: Present CTA bilaterally; Absent accessory muscle use, wheezes or crackles *Routine Cardiovascular Exam Cardiovascular: Present RRR, Normal S1 and Normal S2; Absent murmur, gallop or rubs Comments: Right groin cath site normal on inspection and palpation *Routine Abdominal Exam Abdominal: Present soft; Absent tenderness *Routine Extremities Exam Extremities: Present pulses intact; Absent cyanosis or edema *Routine Skin Exam Skin: Present intact; Absent erythema or wounds *Routine Neurological Exam Neurological: Present alert and oriented X3 Routine Psychiatric Exam Psychiatric: Present cooperative Progress Note: A&P Assessment and plan (1) CHF (congestive heart failure): Status: Acute (2) Diabetes mellitus: Status: Acute (3) COPD (chronic obstructive pulmonary disease): Status: Chronic (4) Non-ST elevation [place] (NSTEMI): Status: Acute (5) RADHA (acute kidney injury): Status: Acute (6) CAD (coronary artery disease): Status: Chronic Assessment and Plan Assessment and Plan for All Diagnoses:: NSTEMI - 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 - Plan: Due to Eliquis last night and Cr up to 2.6 will wait and do [facility] tomorrow. Pt agreeable. 11/09: CV stable. Morning labs pending. Eliquis off >36h. [facility] today. 11/10: Successful stenting of L-main and LCX arteries yesterday. No CP today. Add DAPT and increase statin to high dose at discharge. HFpEF - proBNP 6,700 - ECHO here: nml EF, septal flattening, severe biatrial dilation, mod TR, AI, markedly elevated RVSP - symptoms improved after Bumex - consider SGLT-2 later, after RADHA 11/09: Euvolemic. Med adjustments post cath. 11/10: Stable. Cont Aldactone at DC. Conside ARB/SGLT2 later. Acute on Chronic Renal Insufficiency - Baseline Cr 2.1, up to 2.6 overnight - Bumex dc'd - monitor closely - check bilateral renal duplex 11/09: Morning labs pending. 11/10: Cr down to 1.9. PAF - rate controlled - 11/10: Resume Eliquis and BB DM-II - A1C 6.8 - consider SGLT2 later COPD - RHF on ECHO - lungs clear - defer management to Hospitalist 11/10: CV stable for DC. He needs to keep a BID BP log and f/u in our office 1 week post discharge. CV DC Meds: Continue Eliquis 5mg BID Continue Spironolactone 25mg daily Stop Hydralazine 100mg TID Add Coreg 3.125mg BID Add ASA 81mg po qday x5 days Add Plavix 75mg po qday Increase Atorvastatin to 80mg qhs
[2024-11-10] MEDS: CLOPIDOGREL 75MG TAB 75 MG PO (08:23)
[2024-11-10] MEDS: ALLOPURINOL 100MG TABLET 100 MG PO (08:23)
[2024-11-10] MEDS: ASPIRIN EC 81MG TABLET 81 MG PO (08:23)
[2024-11-10] MEDS: APIXABAN 5MG TABLET 5 MG PO (10:33)
[2024-11-10 10:41] LABS: POC Glucose,Bedside 182 (70-110)
--- NOTE | 2024-11-10 11:38 | EXP.DC.SUM ---
General Admission date:: 11/07/24 HPI HPI HPI: Norma Willis is a 79-year-old male with history of CHF, COPD, diabetes, CABG previous heart caths approximately 30 years ago, BPH, type 2 diabetes, and a history of A-fib on chronic anticoagulation. He presented to the ER because of complaint of worsening chest pain and shortness of breath over the past few weeks. Denies any swelling in his legs. States he has been more short of breath with exertion. Denies any nausea or vomiting, syncope, fever or chills. Pain has been substernal. Workup in the ER with EKG showing no ST elevations. Had some A-fib rate controlled with aberrancy, White count normal at 9.8. Hemoglobin 10.5. Kidney function at baseline for patient from his report with BUN 59, creatinine 2.1. BNP elevated at 6700. Detectable initial troponin at 0.06. Given symptoms and abnormal lab findings, medicine consulted for admission and further management of CHF exacerbation and NSTEMI. After arrival to the floor, patient is feeling somewhat better. Started on diuretics. Has had 2 voids that are unmeasured. Stable on room air. at bedside. Pain better at this time per his report. Alert and oriented but reports feeling weak Hospital Course Hospital Course Hospital Course: Venancio Willis is a 79-year-old male with history of CABG and heart cath 30 years ago, insulin-dependent diabetes, COPD, CHF, CKD versus RADHA, BPH who presents with 2 weeks of worsening chest pain and shortness of breath with exertion who was admitted for HFpEF exacerbation and NSTEMI. 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 Patient tolerated procedure well. ? ECHO LVEF 55%, with no wall motion abnormalities. However, however, RVSP greater than 60 mmHg though this was before diuresis. Will benefit from outpatient sleep study to evaluate for GUY. ? Discharged with aspirin 81 mg, Plavix 75 mg, atorvastatin 40 mg. Held metoprolol given significant though asymptomatic bradycardia as low as 30s bpm. High risk for falls with this HR and age. ? Continue Lasix 40 mg, spironolactone 25 mg. ? Will follow-up with cardiology within 1 week. #RADHA on suspected CKD stage III - Creatinine peaked at 2.6, improved to 1.9 after gentle IV fluid rehydration. ? Will follow-up with PCP for further evaluation. #Paroxysmal A-fib ? Currently rate controlled. Continue Eliquis 5 mg twice daily. #Diabetes ? A1c 6.8. ? Continue glipizide. Talk to PCP about discontinuing Lantus given high risk for hypoglycemia with glipizide. #COPD ? No wheezing on exam. Will consider DuoNebs if develops dyspnea or wheeze. #BPH ? Continue tamsulosin 0.4 mg nightly #Gout ? Continue allopurinol 100 mg daily Total time spent on discharge: 32 minutes on chart review, counseling, documentation, and direct care with patient. Exam Data for Last 24 hours Vital signs and Labs for Last 24 Hours: Temp Pulse Resp BP Pulse Ox O2 Del Method 97.6 F 51 L 19 137/48 L 96 Room Air 11/10/24 08:00 11/10/24 08:00 11/10/24 08:00 11/10/24 08:00 11/10/24 08:00 11/10/24 08:32 Laboratory Results - last 24 hr 11/09/24 08:08: WBC Cancelled, Corrected WBC Cancelled, RBC Cancelled, Hgb Cancelled, Hct Cancelled, MCV Cancelled, MCH Cancelled, MCHC Cancelled, RDW Cancelled, Plt Count Cancelled, MPV Cancelled, Neut % (Auto) Cancelled, Lymph % (Auto) Cancelled, Ripley % (Auto) Cancelled, Eos % (Auto) Cancelled, Baso % (Auto) Cancelled, Neut # (Auto) Cancelled, Lymph # (Auto) Cancelled, Ripley # (Auto) Cancelled, Eos # (Auto) Cancelled, Baso # (Auto) Cancelled 11/09/24 14:52: Activated Clotting Time 310 H* 11/09/24 14:52: Activated Clotting Time 310 H* 11/09/24 16:47: POC Glucose 142 H 11/09/24 20:22: POC Glucose 179 H 11/10/24 05:32: POC Glucose 200 H 11/10/24 06:18: WBC 6.5, RBC 2.87 L, Hgb 8.8 L, Hct 26.6 L, MCV 92.7, MCH 30.7, MCHC 33.1, RDW 15.2, Plt Count 129 L, MPV 12.0 H, Neut % (Auto) 71.1, Lymph % (Auto) 12.2, Ripley % (Auto) 12.1 H, Eos % (Auto) 3.6, Baso % (Auto) 0.5, Neut # (Auto) 4.6, Lymph # (Auto) 0.8, Ripley # (Auto) 0.8, Eos # (Auto) 0.2, Baso # (Auto) 0.0, Sodium 139, Potassium 4.2, Chloride 115 H, Carbon Dioxide 18 L, Anion Gap 10.2, BUN 54 H, Creatinine 1.90 H, Estimated Creat Clear 40, Estimated GFR 35 L, Est GFR ( Amer) 42 L D, Glucose 167 H, Calcium 8.3 L, Total Bilirubin 0.5, AST 25, ALT 19, Alkaline Phosphatase 76, Total Protein 5.7 L, Albumin 3.1 L D, Globulin 2.6, Albumin/Globulin Ratio 1.2 11/10/24 10:34: POC Glucose 182 H I & O for Last 24 hours: Intake & Output 11/07/24 11/08/24 11/09/24 11/10/24 23:59 23:59 23:59 23:59 Intake Total 870 / 870 1038 / 1038 Output Total 975 / 975 850 / 850 500 / 500 Balance -105 / -105 188 / 188 -500 / -500 Weight 86.183 kg 87.3 kg 87.815 kg 87.317 kg Constitutional Constitutional: no acute distress *Routine HEENT Exam Head: Present normocephalic Eye: Present EOMI and PERRL ENT: Present mucous membranes moist *Routine Neck Exam Neck: Present supple; Absent lymphadenopathy *Routine Respiratory Exam Respiratory: Present CTA bilaterally *Routine Cardiovascular Exam Cardiovascular: Present RRR *Routine Abdominal Exam Abdominal: Present soft and normoactive bowel sounds; Absent tenderness *Routine Extremities Exam Extremities: Absent cyanosis, clubbing or edema *Routine Skin Exam Skin: Present warm; Absent rash *Routine Neurological Exam Neurological: Present alert and oriented X3 Results Data Completed and Pending Labs on day of discharge: Labs from last 24 hours 11/10/24 11/10/24 11/10/24 10:34 06:18 05:32 WBC 6.5 Corrected WBC RBC 2.87 L Hgb 8.8 L Hct 26.6 L MCV 92.7 MCH 30.7 MCHC 33.1 RDW 15.2 Plt Count 129 L MPV 12.0 H Neut % (Auto) 71.1 Lymph % (Auto) 12.2 Ripley % (Auto) 12.1 H Eos % (Auto) 3.6 Baso % (Auto) 0.5 Neut # (Auto) 4.6 Lymph # (Auto) 0.8 Ripley # (Auto) 0.8 Eos # (Auto) 0.2 Baso # (Auto) 0.0 Activated Clotting Time Sodium 139 Potassium 4.2 Chloride 115 H Carbon Dioxide 18 L Anion Gap 10.2 BUN 54 H Creatinine 1.90 H Estimated Creat Clear 40 Estimated GFR 35 L Est GFR ( Amer) 42 L D Glucose 167 H POC Glucose 182 H 200 H Calcium 8.3 L Total Bilirubin 0.5 AST 25 ALT 19 Alkaline Phosphatase 76 Total Protein 5.7 L Albumin 3.1 L D Globulin 2.6 Albumin/Globulin Ratio 1.2 11/09/24 11/09/24 11/09/24 20:22 16:47 14:52 WBC Corrected WBC RBC Hgb Hct MCV MCH MCHC RDW Plt Count MPV Neut % (Auto) Lymph % (Auto) Ripley % (Auto) Eos % (Auto) Baso % (Auto) Neut # (Auto) Lymph # (Auto) Ripley # (Auto) Eos # (Auto) Baso # (Auto) Activated Clotting Time 310 H* Sodium Potassium Chloride Carbon Dioxide Anion Gap BUN Creatinine Estimated Creat Clear Estimated GFR Est GFR ( Amer) Glucose POC Glucose 179 H 142 H Calcium Total Bilirubin AST ALT Alkaline Phosphatase Total Protein Albumin Globulin Albumin/Globulin Ratio 11/09/24 11/09/24 14:52 08:08 WBC Cancelled Corrected WBC Cancelled RBC Cancelled Hgb Cancelled Hct Cancelled MCV Cancelled MCH Cancelled MCHC Cancelled RDW Cancelled Plt Count Cancelled MPV Cancelled Neut % (Auto) Cancelled Lymph % (Auto) Cancelled Ripley % (Auto) Cancelled Eos % (Auto) Cancelled Baso % (Auto) Cancelled Neut # (Auto) Cancelled Lymph # (Auto) Cancelled Ripley # (Auto) Cancelled Eos # (Auto) Cancelled Baso # (Auto) Cancelled Activated Clotting Time 310 H* Sodium Potassium Chloride Carbon Dioxide Anion Gap BUN Creatinine Estimated Creat Clear Estimated GFR Est GFR ( Amer) Glucose POC Glucose Calcium Total Bilirubin AST ALT Alkaline Phosphatase Total Protein Albumin Globulin Albumin/Globulin Ratio DS: Diagnosis Discharge Diagnosis (1) Non-ST elevation ID (NSTEMI): Status: Acute Code(s): I21.4 - Non-ST elevation (NSTEMI) myocardial infarction (2) CHF (congestive heart failure): Status: Acute Code(s): I50.9 - Heart failure, unspecified Qualifiers: Heart failure chronicity: acute on chronic Heart failure type: diastolic Qualified Code(s): I50.33 - Acute on chronic diastolic (congestive) heart failure (3) Diabetes mellitus: Status: Acute Code(s): E11.9 - Type 2 diabetes mellitus without complications Qualifiers: Diabetes mellitus complication status: with other specified complication Diabetes mellitus halfway insulin use: with halfway use Diabetes mellitus type: type 2 Qualified Code(s): E11.69 - Type 2 diabetes mellitus with other specified complication; Z79.4 - ferry terminal agent (current) use of insulin (4) COPD (chronic obstructive pulmonary disease): Status: Chronic Code(s): J44.9 - Chronic obstructive pulmonary disease, unspecified (5) RADHA (acute kidney injury): Status: Acute Code(s): N17.9 - Acute kidney failure, unspecified (6) CAD (coronary artery disease): Status: Chronic Code(s): I25.10 - Atherosclerotic heart disease of hughes coronary artery without angina pectoris Meds Home Medications and Allergies Home Medications ?Medication ?Instructions ?Recorded ?Confirmed ?Type allopurinol 100 mg tablet 100 mg PO DAILY 12/17/21 11/07/24 History apixaban 5 mg tablet (Eliquis) 5 mg PO BID 12/17/21 11/07/24 History ergocalciferol (vitamin D2) 1,250 1,250 mcg PO MONTHLY 12/17/21 11/07/24 History mcg (50,000 unit) capsule furosemide 20 mg tablet 40 mg PO DAILY 12/17/21 11/07/24 History insulin glargine U-300 conc 300 See Rx Instructions .Route .COMPLEX 12/17/21 11/07/24 History unit/mL (1.5 mL) subcutaneous pen (Toumike SoloStar U-300 Insulin) pen needle, diabetic 31 gauge x #1,200 ea 12/17/21 11/07/24 History 5/16 (BD Ultra-Fine Short Pen Needle) tamsulosin 0.4 mg capsule 0.4 mg PO HS 12/17/21 11/07/24 History spironolactone 25 mg tablet 25 mg PO DAILY 09/17/22 11/07/24 History blood sugar diagnostic (Accu-Chek #10 ea 09/09/23 11/07/24 History Jessica Plus test strips) ferrous sulfate 325 mg (65 mg 325 mg PO BID 09/09/23 11/07/24 History iron) tablet doxazosin 8 mg tablet 8 mg PO HS 11/07/24 11/07/24 History glipizide 5 mg tablet, extended 5 mg PO DAILY 11/07/24 11/07/24 History release 24 hr aspirin 81 mg tablet,delayed 81 mg PO DAILY 30 days #30 tabs 11/10/24 Rx release atorvastatin 40 mg tablet 80 mg (2 x 40 mg) PO HS #30 tabs 11/10/24 Rx clopidogrel 75 mg tablet 75 mg PO DAILY 30 days #30 tabs 11/10/24 Rx New Prescriptions to Start Prescriptions: aspirin Abby,Stanford atorvastatin Abby,Stanford clopidogrel Abby,Stanford Allergies Allergy/AdvReac Type Severity Reaction Status Date / Time No Known Allergies Allergy Verified 11/07/24 13:56 Discharge Plan Disposition Patient Disposition: Home, Self-Care Condition: Fair Discharge Order Discharge Orders: Discharge Order (Routine); Ordered 11/10/24 Ordered By: Stanford Mora Follow up Plan Follow up with: Rocio Hannah APRN [Nurse Practitioner] - 11/16/24 10:45 am Yousif Montalvo [Primary Care Provider] - 11/18/24 9:30 am Pippa Carrillo MD [Physician] - 12/05/24 1:00 pm (Decreased RV function, consider for sleep study) Prescriptions/Medication Reconciliation: New atorvastatin 40 mg Tablet 80 mg PO HS Qty: 30 0RF clopidogrel 75 mg Tablet 75 mg PO DAILY 30 Days Qty: 30 0RF aspirin 81 mg Tablet,Delayed Release (Dr/Ec) 81 mg PO DAILY 30 Days Qty: 30 0RF Continued furosemide 20 mg tablet 40 mg PO DAILY Eliquis 5 mg tablet 5 mg PO BID ergocalciferol (vitamin D2) 1,250 mcg (50,000 unit) capsule 1,250 mcg PO MONTHLY Patient Comments: TAKE 1 CAPSULE BY MOUTH ONCE A MONTH allopurinol 100 mg tablet 100 mg PO DAILY Patient Comments: TAKE 1 TABLET BY MOUTH EVERY DAY Toumike SoloStar U-300 Insulin 300 unit/mL (1.5 mL) insulin pen See Rx Instructions .ROUTE .COMPLEX Rx Instructions: SSI per PCP tamsulosin 0.4 mg capsule 0.4 mg PO HS (DME) pen needle, diabetic [BD Ultra-Fine Short Pen Needle] 31 gauge x 5/16 needle See Rx Instructions .ROUTE .MEDSUPPLY Qty: 1200 Patient Comments: USE DIRECTED Rx Instructions: As directed spironolactone 25 mg tablet 25 mg PO DAILY Patient Comments: TAKE 1 TABLET BY MOUTH EVERY DAY (DME) Accu-Chek Jessica Plus test strp Strip See Rx Instructions .ROUTE .MEDSUPPLY Qty: 10 Rx Instructions: As directed ferrous sulfate 325 mg (65 mg iron) tablet 325 mg PO BID glipizide 5 mg tablet extended release 24hr 5 mg PO DAILY Patient Comments: TAKE 1 TABLET BY MOUTH ONCE DAILY TO IMPROVE DIABETES doxazosin 8 mg tablet 8 mg PO HS Discontinued hydralazine 100 mg tablet 100 mg PO BID atorvastatin 20 mg tablet 20 mg PO HS Other Ambulatory Orders: Basic Metabolic Panel (Routine) Timeframe: 20241116 Facility: [facility] - Location: Laboratory Ordered By: Rajinder Garcia Complete Blood Count Auto Diff (Routine) Timeframe: 20241116 Facility: [facility] - Location: Laboratory Ordered By: Rajinder Garcia Problem Reconciliation Problems Reviewed?: Yes Patient Discharge Instructions Additional Instructions: I have also referred you to pulmonology for sleep study. Patient Instructions: DI for Heart Failure, DI for Angina, DI for Cardiac Catheterization, DI for Surgical Site Infection, DI for Acute Kidney Injury Print Language: Namibian Providers Primary Care Provider: Yousif Montalvo Admit Provider: Mykel Puri Attending Provider: Mykel Puri
[2024-11-10 12:00] VITALS: BP 156/62; PULSE 52; RESP 17; TEMP 36.9; O2SAT 95
--- NOTE | 2024-11-11 10:53 | SW/DCPLANNER ---
Spoke with patient's . Patients stated that he is doing very well. Patient's stated that they are aware of his upcoming appointments. Patients stated that clinic pharmacy brought his medicine to his bedside the day of his discharge. Patients stated that they have no concerns or questions at this time. Hemant Taylor
== END 2024-11-10 13:12 | disposition home or self-care (01) | DRG 321 ==
LOC: ER 14:59 → 2ND 15:17
PROVIDERS: Internal Medicine; Nurse Practitioner Family; Physician Assistant; Student in an Organized Health Care Education/Training Program; Admitting Provider Internal Medicine Adolescent Medicine; Emergency Provider Student in an Organized Health Care Education/Training Program; PCP Family Medicine; Visit Provider Internal Medicine Adolescent Medicine
PROC: 027135Z Dilation of Coronary Artery, Two Arteries with Two Drug-eluting Intraluminal Devices, Percutaneous Approach (ICD-10-PCS; principal; 2024-11-09 10:30)
DX: I21.4 Non-ST elevation (NSTEMI) myocardial infarction (principal); I50.33 Acute on chronic diastolic (congestive) heart failure; N17.9 Acute kidney failure, unspecified; I11.0 Hypertensive heart disease with heart failure; E11.69 Type 2 diabetes mellitus with other specified complication; J44.9 Chronic obstructive pulmonary disease, unspecified; I25.10 Atherosclerotic heart disease of native coronary artery without angina pectoris; I15.0 Renovascular hypertension; I70.1 Atherosclerosis of renal artery; N18.30 Chronic kidney disease, stage 3 unspecified; E11.22 Type 2 diabetes mellitus with diabetic chronic kidney disease; I48.0 Paroxysmal atrial fibrillation; I77.1 Stricture of artery; Z95.1 Presence of aortocoronary bypass graft; Z79.01 Long term (current) use of anticoagulants; Z79.4 Long term (current) use of insulin; Z79.899 Other long term (current) drug therapy
CPT/HCPCS: 36252; 36415; 80053; 81001; 82962; 83036; 83735; 83880; 84436; 84443; 84479; 84484; 85025; 85347; 85378; 85610; 85730; 86803; 87389; 92928; 93005; 93306; 93459; 93976; 99152; 99153; 99291; C1725; C1760; C1769; C1874; C1894; C9600; J1200; J1644; J1885; J2250; J3010; J7030; Q9967

== ENCOUNTER 2024-11-22 09:28 | Outpatient (CLI) | payer MEDICARE, SELFPAY ==
[2024-11-22 10:00] LABS: Basophils % 0.4 % (0.1-2.0); Eosinophils # 0.3 K/mm3 (0.0-0.4); Eosinophils % 3.5 % (0.1-12.0); Hematocrit 34.6 % (42.0-52.0); Hemoglobin 11.4 g/dL (14.1-18.0); Lymphocytes % 11.3 % (10-50); Mean Corpuscular HGB Conc 32.9 g/dL (31.8-35.4); Mean Corpuscular Hemoglobin 30.2 pg (27.0-31.2); Mean Corpuscular Volume 91.8 fl (80-94); Mean Platelet Volume 11.6 fl (7.4-10.4); Monocytes # 0.7 K/mm3 (0.1-1.0); Monocytes % 7.8 % (1.7-9.3); Neutrophils # 6.8 K/mm3 (1.8-7.8); Neutrophils % 76.4 % (37.0-80.0); Platelet Count 189 K/mm3 (142-424); Red Blood Count 3.77 M/mm3 (4.60-6.20); Red Cell Distribution Width 14.8 % (11.5-17.5); White Blood Count 8.9 K/mm3 (4.8-10.8)
[2024-11-22 10:22] LABS: Anion Gap 13.3 mEq/L (5-15); Blood Urea Nitrogen 69 mg/dl (9-20); Calcium 9.3 mg/dl (8.4-10.2); Carbon Dioxide 18 mmol/L (22.0-30.0); Chloride 110 mmol/L (98-107); Estimated Glomerular Filt Rate 31 ml/min (>60); GFR (African American) 37 ML/MIN (>60); Glucose 235 mg/dl (74-100); Potassium 4.3 mmoL/L (3.5-5.1); Sodium 137 mmol/L (136-145)
== END 2024-11-22 23:59 | disposition home or self-care (01) ==
LOC: LAB 09:29
PROVIDERS: PCP Family Medicine; Visit Provider Internal Medicine
DX: I21.4 Non-ST elevation (NSTEMI) myocardial infarction (principal)
CPT/HCPCS: 36415; 80048; 85025

== ENCOUNTER → 2025-02-07 13:06 | Outpatient (CLI) | payer MEDICARE, SELFPAY ==
--- OUTSIDE RECORDS SUMMARY | 2025-02-07 13:09 | XMS_ITS | Data Portability ---
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 Plan of Treatment Reminders Order Date Submit Date Provider Last Modified By Organization Details Last Modified Time Details Appointments OV EST 15 2024 09:45A Tiny Nolasco NP Not available Not available Not available Lab CBC w/ auto diff 2024 025 [facility] (Surgery Sched), [address] [place], [address], 11/30/2024 09:10:06 CMP, serum or plasma 2024 025 [facility] (Surgery Sched), [address] [place], [address], 11/30/2024 09:10:06 PT/INR 2024 025 [facility] (Surgery Sched), [address] [place], [address], 11/30/2024 09:10:06 afp (alpha-f etoprote in) tumor marker, serum or plasma 2024 025 [facility] (Surgery Sched), [address] [place], [address], 11/30/2024 09:10:06 Referral None recorded . Procedures None recorded . Surgeries None recorded . Imaging US, liver 2024 025 [facility] (Scheduling), [address], [place], [address], 01/04/2025 12:01:14 US, liver 2023 024 [facility] (Scheduling), [address], [place], [address], 08/04/2024 09:44:02 US, echocard iogram, transtho racic, complete , w/ color flow 2023 024 [email or web address] [facility], [address], [place], [address], 04/25/2024 15:23:56 Medication Orders None recorded . Patient TargetsNo targets recorded. Patient InstructionsNo instructions recorded. Reason for Referral None Reported. Results Created Date Observation Date Name Description Value Unit Range Abnormal Flag Note LastModifiedBy Organization Detail LastModifiedTime 01/21/2001/20/2025 PT (PROT HROMB IN TIME) W INR PT (prothrombin time) 11.7 secon ds 9.1-12 .0 Not Available [facility] (Lab Registration) [address], [place], [address], 01/20/2025 10:57:54 01/21/2001/20/2025 PT (PROT HROMB IN TIME) W INR INR 1.08 0.9-1. 1 INR is inten ded to be used only for patie nts on stabl e oral anti- coagu lant thera py. *Ther apeut ic Range s 2.0 - 3.0 Usual Thera peuti c Range 2.5 - 3.5 For patie nts with a histo ry of multi ple deep vein throm bus or mecha nical heart valve s. Not Available [facility] (Lab Registration) [address] [place], [address], 01/20/2025 10:57:54 01/21/2001/20/2025 PT (PROT HROMB IN TIME) W INR note Unles s other sarmiento noted testi ng perfo rmed at: [facility] [address] [place] [address] [phone] Randy mauricio MD CLIA: [id number] Not Available [facility] (Lab Registration) [address] [place], [address], 01/20/2025 10:57:54 01/21/2001/20/2025 CBC AUTO W DIFF WBC 7.7 10 4.5-11 .5 Not Available [facility] (Lab Registration) [address] [place], [address], 01/20/2025 11:00:13 01/21/2001/20/2025 CBC AUTO W DIFF RBC 4.26 10 4.25-5 .57 Not Available [facility] (Lab Registration) [address] [place], [address], 01/20/2025 11:00:13 01/21/2001/20/2025 CBC AUTO W DIFF HGB 12.8 g/dL 13.5-1 7.2 low Not Available [facility] (Lab Registration) [address] [place], [address], 01/20/2025 11:00:13 01/21/2001/20/2025 CBC AUTO W DIFF HCT 38.8 % 42.0-5 2.0 low Not Available [facility] (Lab Registration) [address] [place], [address], 01/20/2025 11:00:13 01/21/2001/20/2025 CBC AUTO W DIFF MCV 91.1 fL 80-95 Not Available [facility] (Lab Registration) [address] [place], [address], 01/20/2025 11:00:13 01/21/2001/20/2025 CBC AUTO W DIFF MCH 30.0 pg 27.0-3 4.0 Not Available [facility] (Lab Registration) [address] [place], [address], 01/20/2025 11:00:13 01/21/20 25 01/20/2025 CBC AUTO W DIFF MCHC 33.0 g/dL 32.0-3 6.0 Not Available [facility] (Lab Registration) [address] [place], [address], 01/20/2025 11:00:13 01/21/2001/20/2025 CBC AUTO W DIFF platelet count 200 10 150-45 0 Not Available [facility] (Lab Registration) [address] [place], [address], 01/20/2025 11:00:13 01/21/20 25 01/20/2025 CBC AUTO W DIFF RDW 15.2 % 12.3-1 5.1 high Not Available [facility] (Lab Registration) [address] [place], [address], 01/20/2025 11:00:13 01/21/2001/20/2025 CBC AUTO W DIFF MPV 11.2 fL 7.4-10 .4 high Not Available [facility] (Lab Registration) [address] [place], [address], 01/20/2025 11:00:13 01/21/20 25 01/20/2025 CBC AUTO W DIFF granulocyte% 68.4 % 40-75 Not Available [facility] (Lab Registration) [address] [place], [address], 01/20/2025 11:00:13 01/21/20 25 01/20/2025 CBC AUTO W DIFF lymphocyte% 15.9 % 15-57 Not Available [facility] (Lab Registration) [address] [place], [address], 01/20/2025 11:00:13 01/21/20 25 01/20/2025 CBC AUTO W DIFF monocyte% 10.6 % 4.0-12 .0 Not Available [facility] (Lab Registration) [address] [place], [address], 01/20/2025 11:00:13 01/21/20 25 01/20/2025 CBC AUTO W DIFF eosinophil% 4.1 % 0.0-4. 0 high Not Available [facility] (Lab Registration) [address] [place], [address], 01/20/2025 11:00:13 01/21/2001/20/2025 CBC AUTO W DIFF basophil% 0.3 % 0.0-1. 0 Not Available [facility] (Lab Registration) [address] [place], [address], 01/20/2025 11:00:13 01/21/2001/20/2025 CBC AUTO W DIFF immature granulocytes % 0.7 % 0.0-0. 8 Not Available [facility] (Lab Registration) [address] [place], [address], 01/20/2025 11:00:13 01/21/20 25 01/20/2025 CBC AUTO W DIFF granulocyte# 5.24 10 Not Available [facility] (Lab Registration) [address] [place], [address], 01/20/2025 11:00:13 01/21/20 25 01/20/2025 CBC AUTO W DIFF lymphocyte# 1.22 10 Not Available [facility] (Lab Registration) [address] [place], [address], 01/20/2025 11:00:13 01/21/20 25 01/20/2025 CBC AUTO W DIFF monocyte# 0.81 10 Not Available [facility] (Lab Registration) [address] [place], [address], 01/20/2025 11:00:13 01/21/20 25 01/20/2025 CBC AUTO W DIFF eosinophil# 0.31 10 Not Available [facility] (Lab Registration) [address], [place], [address], 01/20/2025 11:00:13 01/21/20 25 01/20/2025 CBC AUTO W DIFF basophil# 0.02 10 Not Available [facility] (Lab Registration) [address] [place], [address], 01/20/2025 11:00:13 01/21/20 25 01/20/2025 CBC AUTO W DIFF immature granulocytes # 0.05 10 Not Available [facility] (Lab Registration) [address] [place], [address], 01/20/2025 11:00:13 01/21/20 25 01/20/2025 CBC AUTO W DIFF manual differential NO Not Available [facility] (Lab Registration) [address], [place], [address], 01/20/2025 11:00:13 01/21/2001/20/2025 CBC AUTO W DIFF note Unles s other sarmiento noted testi ng perfo rmed at: [facility] [address] [place] [address] [phone] Randy mauricio MD CLIA: [id number] Not Available [facility] (Lab Registration) [address] [place], [address], 01/20/2025 11:00:13 01/21/2001/20/2025 COMP METAB OLIC PANEL sodium 140 mmol/ L 136-14 5 Not Available [facility] (Lab Registration) [address] [place], [address], 01/20/2025 11:25:24 01/21/2001/20/2025 COMP METAB OLIC PANEL potassium 4.0 mmol/ L 3.5-5. 1 Not Available [facility] (Lab Registration) [address] [place], [address], 01/20/2025 11:25:24 01/21/20 25 01/20/2025 COMP METAB OLIC PANEL chloride 106 mmol/ L 98-107 Not Available [facility] (Lab Registration) [address] [place], [address], 01/20/2025 11:25:24 01/21/20 25 01/20/2025 COMP METAB OLIC PANEL carbon dioxide 22 mmol/ L 21-32 Not Available [facility] (Lab Registration) [address] [place], [address], 01/20/2025 11:25:24 01/21/20 25 01/20/2025 COMP METAB OLIC PANEL anion gap 12.0 Not Available [facility] (Lab Registration) [address] [place], [address], 01/20/2025 11:25:24 01/21/20 25 01/20/2025 COMP METAB OLIC PANEL glucose 195 mg/dL 70-110 high Not Available [facility] (Lab Registration) [address] [place], [address], 01/20/2025 11:25:24 01/21/20 25 01/20/2025 COMP METAB OLIC PANEL blood urea nitrogen 49 mg/dL 7-18 high Not Available [facility] (Lab Registration) [address] [place], [address], 01/20/2025 11:25:24 01/21/20 25 01/20/2025 COMP METAB OLIC PANEL creatinine 2.4 mg/dL 0.8-1. 3 high Not Available [facility] (Lab Registration) [address] [place], [address], 01/20/2025 11:25:24 01/21/20 25 01/20/2025 COMP METAB OLIC PANEL BUN/creatini ne ratio 20.4 9-21 Not Available [facility] (Lab Registration) [address], [place], [address], 01/20/2025 11:25:24 01/21/20 25 01/20/2025 COMP METAB OLIC PANEL estimated glom filtration rate 27 mL/mi n >60- low GFR LIMIT ATION : The eGFR equat ion CKD-E PI 2020 is not appli cable for pedia tric patie nts or great er than 90 years of age. The follo wing condi tions may alter the GFR resul t: extre mes in body size, malnu triti on or obesi ty, skele kash muscl e disea se, parap legia or quadr ipleg ia, veget marilu diet or rapid ly garcía ing kiney funct ion. Not Available [facility] (Lab Registration) [address], [place], [address], 01/20/2025 11:25:24 01/21/20 25 01/20/2025 COMP METAB OLIC PANEL osmolality (calculated) 309 mOsm/ kg 275-30 1 high OSMOL ALITY IS A CALCU LATIO N UTILI ZING THE SERUM /PLAS MA SODIU M, GLUCO SE AND UREA NITRO GEN (BUN) LEVEL S. FOR THE MOST ACCUR ATE RESUL T A MEASU RED SERUM OSMOL ALITY IS SUGGE STED. Not Available [facility] (Lab Registration) [address], [place], [address], 01/20/2025 11:25:24 01/21/20 25 01/20/2025 COMP METAB OLIC PANEL total protein 7.2 g/dL 6.4-8. 2 Not Available [facility] (Lab Registration) [address] [place], [address], 01/20/2025 11:25:24 01/21/20 25 01/20/2025 COMP METAB OLIC PANEL albumin 3.3 g/dL 3.4-5. 0 low Not Available [facility] (Lab Registration) [address] [place], [address], 01/20/2025 11:25:24 01/21/20 25 01/20/2025 COMP METAB OLIC PANEL calcium 9.1 mg/dL 8.5-10 .1 Not Available [facility] (Lab Registration) [address] [place], [address], 01/20/2025 11:25:24 01/21/20 25 01/20/2025 COMP METAB OLIC PANEL corrected calcium 9.7 mg/dL 8.5-10 .1 Not Available [facility] (Lab Registration) [address] [place], [address], 01/20/2025 11:25:24 01/21/20 25 01/20/2025 COMP METAB OLIC PANEL bilirubin total 0.6 mg/dL 0.4-1. 5 Not Available [facility] (Lab Registration) [address] [place], [address], 01/20/2025 11:25:24 01/21/20 25 01/20/2025 COMP METAB OLIC PANEL AST (SGOT) 62 U/L 15-37 high Not Available [facility] (Lab Registration) [address] [place], [address], 01/20/2025 11:25:24 01/21/20 25 01/20/2025 COMP METAB OLIC PANEL ALT (SGPT) 70 U/L 12-78 Not Available [facility] (Lab Registration) [address] [place], [address], 01/20/2025 11:25:24 01/21/20 25 01/20/2025 COMP METAB OLIC PANEL alk phosphatase 178 U/L Not Available [facility] (Lab Registration) [address] [place], [address], 01/20/2025 11:25:24 01/21/20 25 01/20/2025 COMP METAB OLIC PANEL note Unles s other sarmiento noted testi ng perfo rmed at: [facility] [address] [place] [phone] Randy mauricio MD CLIA: [id number] Not Available [facility] (Lab Registration) [address] [place], [address], 01/20/2025 11:25:24 01/21/20 25 01/20/2025 AFP, SERUM , TUMOR MARKE R note Unles s other sarmiento noted testi ng perfo rmed at: [facility] [address] [place] [address] [phone] Randy mauricio MD CLIA: [id number] Not Available [facility] (Lab Registration) [address] [place], [address], 01/21/2025 10:12:49 01/21/20 25 01/21/2025 AFP, SERUM , TUMOR MARKE R AFP, serum, tumor marker <1.8 NG/mL 0.0-8. 4 De Diagn ostic s Elect ed milum inesc ence Immun oassa y (ECLI A) . Value s obtai rama with diffe rent assay metho ds or kits canno t be used inter [place] . Resul ts canno t be inter prete d as absol [place] evide nce of the prese nce or absen ce of jourdan mcfadden se. . This test is not inter preta ble in pregn ant femal es. Perfo rmed at: [facility] [address] [place], [place] [id number] [facility] Lab Direc tor: Zach patel PhD, Phone : [phone] SENT TO REFER ENCE LAB Not Available [facility] (Lab Registration) [address] [place], [address], 01/21/2025 10:12:49 03/21/20 24 03/21/2024 , shivani cte [facility] 9 [facility] [place] [address] Phone: Fax: Name: VENANCIO WILLIS Exam Date: : [birth year] Age 78 years Gender : M Access ion: [id number] Physic pratik: ALEXANDR TAYLOR, SMITH Y Facili ty: [facility] Facili ty HSV: Outpat ient Exam: US ABD LMTD Limite d ultras ound of the abdome n Histor y: Ascite s. Evalua te for possib le parace ntesis . Techni que: Multip le sonogr aphic images in all 4 quadra nts were obtain ed. Findin gs: There is a small amount of abdomi nal ascite s most pronou nced within the right upper quadra nt, insuff icient for safe therap eutic parace ntesis . Impres lu: Insuff icient amount of ascite s for safe therap eutic parace ntesis . Films review ed , interp reted and dictat ed by Dr. Donal Hayes . Transc ribed by Tunde Whiting PA-C. Dictat ed By: Juaquin peters Transc ribed By: Juaquin peters Transc ribed On: 3:34 PM Electr onical ly signed by: Juaquin peters Thank you for referr ing VENANCIO WILLIS to [facility]. Legall y authen ticate d by LOTUS Daley MD 03-21 15:34: 59 CC'ed Logic: Orderi ng Provid er: ALEXANDR MTZ Y CC Provid er: SAUD VIVAS Attend ing Provid er: ALEXANDR MTZ Y Referr ing Provid er: ALEXANDR MTZ Y Admitt ing Provid er: ALEXANDR MTZ Y victorino [facility] (Radiology) [address], [place], [address], 03/22/2024 18:18:09 04/18/20 24 04/15/2024 US, echoc ardio gram, trans thora cic, compl ete, w/ color flow [facility] [address] [place] [address] Phone: Fax: Name: VENANCIO WILLIS Exam Date: : [birth year]47 Age 78 years Gender : M Access ion: [id number] Physic pratik: MIKA KNAPP Facili ty: [facility] Facili ty HSV: Outpat ient Exam: ECHO W SPEC COLOR FLOW Reason for Study: Dyspne a SUMMAR Y Normal LV size with normal functi on. The ejecti on fracti on is 55-60% . Left ventri cular fillin g cannot be assess ed due to atrial fibril lation . There is mild concen tric LVH. Modera tely dilate d right ventri apple with mildly decrea sed functi on. Modera tely dilate d left atrium .Sever pipo dilate d right atrium . There is mild-m oderat e aortic regurg itatio n. There is mild mitral regurg itatio n. There is mild-m oderat e tricus pid regurg itatio n. Severe ly increa sed PASP (69 mmHg). No major change s compar ed 2020 INTERP RETATI ON DETAIL Good qualit y study. Left ventri apple: The left ventri apple is normal in size with normal systol ic functi on. The ejecti on fracti on is 55-60% . There is mild concen tric hypert rophy. LV geomet ry demons trates concen tric hypert rophy. There is hypoki nesis of the network support engineer ior wall. The remain merna of the left ventri apple functi ons normal ly. The left ventri cular fillin g patter n cannot be assess ed due to atrial fibril lation . Left atrium : The left atrium is modera tely dilate d. LA volume : 110.0m L, LA volume index: 52.9mL /mA. Right ventri apple: The right ventri apple is modera tely dilate d with mildly decrea sed functi on. RV modera tor band noted, normal varian t. Right atrium : The right atrium is severe ly dilate d. Mitral valve: The mitral valve is normal . There is no mitral stenos is. There is mild mitral regurg itatio n. Aortic valve: The aortic valve is mildly calcif ied. There is with a valve area of 2.58 lead project manager? grad=6 mmHg, LVOT talon=2. 40cm, LVOT TVI=21 .6cm, Ao TVI=37 .9cm). The dimens ionles s index is 0.57. AV peak veloci bh=126 cm/sec . There is mild-m oderat e aortic regurg itatio n. (AR Decel= 1.760 m/secA ? Tricus pid valve: The tricus pid valve is normal . There is mild to modera te tricus pid regurg itatio n. PASP= 69 mmHg, RAP=7m mHg. Pulmon ic valve: The pulmon ic valve is normal . Perica rdium: The perica rdium is normal . Pulmon leeann artery : The pulmon leeann artery is normal . Intera trial septum : The intera trial septum is normal . Aorta: The aorta is normal . The aortic root is normal . Aortic dimens ion - Ascend ing=2. 90cm. Vena Cava: The inferi or vena cava is normal . MEASUR EMENTS Left Ventri apple IVSd: 1.32cm (0.6-1 .1cm) PWd: 1.32cm (0.6-1 .1cm) Mass Asha: 313g LVMI: 150g/m A? LVIDd: 5.52cm (3.7-5 .6 cm) LVIDdI : 2.65cm /m2 LVIDs: 3.65cm (1.8-4 .2 cm) Legall y authen ticate d by RA Cohen 04-18 13:43: 24 LVIDsI : 1.75cm /m2 RWT: 0.48 (<0.42 ) E to A: 5.95 (0.6-2 ) E-e prime med: 19.83 E-e prime lat: 11.90 Decel: 219.00 ms (168-2 32ms) Right Ventri apple Mid RV Talon: 4.1cm (2.7-3 .3cm) Max Valve Veloci ties AV peak wilbert: 160cm/ sec LVOT: 97.40c m/sec Pulmon leeann RAP: 7mmHg PASP: 69mmHg Atria LA AP: 4.9cm LA vol: 110.0m L KRISTAN: 52.9mL /mA? Mika Knapp MD Electr onical ly signed by Dr. Mika Knapp on 2023 at 1:43 PM Dictat ed By: MIKA KNAPP Transc ribed By: Transc ribed On: 1:43 PM Electr onical ly signed by: MIKA KNAPP Thank you [facility] Legall y authen ticate d by RA Cohen 04-18 13:43: 24 CC'ed Logic: Orderi ng Provid er: RA WASHINGTON Attend ing Provid er: RA WASHINGTON Admitt ing Provid er: RA WASHINGTON [email or web address] [facility] [address] [facility], [place], [address], 04/29/2024 11:15:08 08/04/20 24 08/04/2024 US, liver No observ ation record ed. [facility] (Radiology) [address] [place], [address], 08/05/2024 10:43:54 08/04/20 24 08/04/2024 US, [facility] [place] [place] [address] Phone: Fax: Name: VENANCIO WILLIS Exam Date: : [birth year] Age 79 years Gender : M Access ion: [id number] Physic pratik: ROBIN NOLASCO Facili ty: [facility] Facili ty HSV: Outpat ient Exam: US LIVER Exam: Ultras ound of the liver perfor med TECHNI QUE: Graysc cesar and color Dopple r assess ment of the liver and right upper quadra nt obtain ed. FINDIN GS: Cirrho tic liver morpho logarvin mcclain r to prior. Liver measur es approx imatel y 15.7 cm. No suspic ious lesion s visual ized. Main portal vein appear s patent with approp riate flow direct ionali ty. Common bile duct approx imatel y 2.9 mm in diamet er which is within normal limits . No eviden ce of intrah epatic ductal dilati on. Gallbl adder within normal limits . Small amount of perihe patic ascite s Right kidney : No acute abnorm ality. Renal length is 9.1 cm. Small cyst noted. Pancre as not well-v isuali zed. IMPRES LU: Cirrho tic liver with small amount of perihe patic ascite s. Electr onical ly signed by: Jameson Osorio MD 2023 09:38 AM EST RP Workst ation: [id number] Dictat ed By: JAMESON OSORIO Transc ribed By: Transc ribed On: 8:58 AM Electr onical ly signed by: JAMESON OSORIO 024 Thank you for referr ing VENANCIO WILLIS to [facility] ity Hospit al. Legall y authen ticate d by KELLE BARBA 2023-09 08:58: 00 CC'ed Logic: Orderi ng Provid er: BROOKE Robison CC Provid er: SAUD VIVAS Attend ing Provid er: BROOKE Robison Referr ing Provid er: BROOKE Robison Admitt ing Provid er: BROOKE newman[address] [place] [address] (Radiology) [address] [place], [address], 08/04/2024 15:19:42 01/05/20 25 01/04/2025 US, liver No observ ation record ed. [facility] (Radiology) [address] [place], [address], 01/06/2025 13:40:52 01/05/20 25 01/04/2025 US, liver [facility] [address] [place] [address] Phone: Fax: Name: VENANCIO WILLIS Exam Date: 01/05/20 : [birth year] Age 79 years Gender : M Access ion: [id number] Physic pratik: ROBIN NOLASCO Facili ty: [facility] Facili ty HSV: Outpat ient Exam: US LIVER EXAM: US LIVER HISTOR Y: cirrho sis. COMPAR JAYLAN: 024. FINDIN GS: There are no abnorm alitie s of the imaged portio ns of the pancre as. There is stable appear ance of mild hepati c echote xture coarse eddie and nodula rity of the contou r indica tive of cirrho sis. No focal mass is identi fied. The main portal vein is patent . The gallbl adder is normal with no eviden ce of sludge , stones , wall thicke eddie or perich olecys tic fluid. The common bile duct is normal measur ing 5 mm in diamet er. The right kidney demons trates normal renal echoge nicity with no focal mass or hydron ephros is and measur es 9 cm in the long axis. A small right renal cyst is stable . IMPRES LU: Stable hepati c cirrho sis morpho logy. No focal mass. Electr onical ly signed by: Antony Adams MD 2024 11:55 AM EDT RP Workst ation: [id number] Dictat ed By: Antony Adams Transc ribed By: Transc ribed On: 01/05/20 8:33 AM Electr onical ly signed by: Antony Adams 01/05/20 Thank you for referr ing VENANCIO WILLIS to [facility] ity Hospit al. Legall y authen ticate d by FRANCIS LA MD 2024-01-04 08:33: 20 CC'ed Logic: Orderi ng Provid er: BROOKE Robison CC Provid er: SAUD VIVAS Attend ing Provid er: BROOKE Robison Referr ing Provid er: BROOKE Robison Admitt ing Provid er: BROOKE Robison [facility] (Radiology) [address], [place], [address], 01/06/2025 13:40:51 Result Notes None recorded. Problems Name Problem SNOMED Code Status Onset Date Resolution Date Notes Provider Name and Address Organization Details Recorded Time Bilateral lower limb edema 257988928 Active 2024 Karyn Nolasco NP [address] [facility], [address], [place], [address] , [place] 5 10:40:11 Retention of urine 169062165 Active 2021 Sudha Martell null, [place] 2 11:40:29 Poor stream of urine 409150196 Active 2021 Sudha Martell [place], [place] 2 11:40:43 Nocturia 697731364 Active 2021 Sudha Martell null, [place] 2 11:41:29 Type 2 diabetes mellitus 27829119 Active 2022 Inocencia Beau [place], [place] 3 13:09:05 Cirrhosis of liver 22759380 Active 2022 Inocencia Beau null, [place] 3 13:09:05 Congestive heart failure 78779667 Active 2022 Berta Tang null, [place] 3 12:40:57 Atrial fibrillati on 48148373 Active 2022 Inocencia Beau [place] 3 13:09:05 Chronic obstructiv e pulmonary disease 72918263 Active 2022 Inocencia Beau [place] 3 13:09:05 Chronic kidney disease stage 3B 542260502 Active 2022 Berta Tang [place], [place] 3 12:41:48 Coronary atheroscle rosis 310851209 Active 2022 Inocencia Beau null, [place] 3 13:09:05 Hyperlipid emia 24218435 Active 2022 Mika Knapp MD [address] [facility], [place], [address] , [place] - [place] - & [place] 3 13:20:37 Essential hypertensi on 97407356 Active 2022 Inocencia Beau null, [place] - [place] & [place] 3 13:09:05 Patent foramen ovale 763671773 Active 2022 Mika Knapp MD [address] [facility], [place], [address] , [place] & [place] 3 13:46:11 Constipati on 61871185 Active Inocencia Beau [place], [place] - & [place] 3 13:09:05 Numbness of upper limb 837869116 Active Inocencia Beau [place] & [place] 3 13:09:05 Lesion of tongue 224920186 Active Inocencia Beau [place] 3 13:09:05 Patient encounter status 824852072 Active Inocencia Beau [place] & [place] 3 13:09:05 Moderate chronic obstructiv e pulmonary disease 718360366 Active Inocencia Beau [place] & [place] 3 13:09:05 Thrombotic stroke 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 Active Inocencia Beau [place] & [place] 3 13:09:05 Hypertensi ve disorder 91179094 Active Inocencia Beau [place] & [place] 3 13:09:05 Ascites 472933635 Active Inocencia Beau [place] & [place] 3 13:09:05 Diastolic heart failure 616891717 Active Inocencia Beau [place] & [place] 3 13:09:05 Unable to void urine 1191421184638 01 Active Inocencia Beau [place], [place] & [place] 3 13:09:05 Coronary arterioscl erosis 16678524 Active Inocencia Beau [place], [place] [facility] & [place] 3 13:09:05 Carotid artery stenosis 84967725 Active Inocencia Beau [place] [facility] & [place] 3 13:09:05 Pulmonary hypertensi on 22923650 Active Inocencia Beau [place] [facility] & [place] 3 13:09:05 Long-term current use of anticoagul ant 894024959 Active Inocencia Beau [place] & [place] 3 13:09:05 Diabetes mellitus 31750435 Active Inocencia Beau [place] & [place] 3 13:09:05 Kidney lesion 3505701060211 0 Active Inocencia Beau [place] & [place] 3 13:09:05 Chronic kidney disease 130322838 Active 2022 Mika Knapp MD [address] [facility], [place], [address] , [place] - [place] & [place] 3 14:18:02 Dyspnea on exertion 38229954 Active 2023 Mika Knapp MD [address] [place], [address] , [place] & [place] 4 14:53:30 Problem Notes None recorded. Procedures Surgical History Date Name Laterality Status Provider Name and Address Organization Details Recorded Time placement of stent in cardiac conduit completed Karyn Nolasco NP [address] [place] [address], [address], [place], [address], [place] - [place] - [facility] & [place] 11/25/2024 10:41:38 Imaging Results Imaging Date Name Status LastModified by [facility] Details LastModified Time 03/21/2024 US, guidance completed [email or web address] [facility] (Radiology) [address] , [place], [id number], 03/22/2024 18:18:09 04/15/2024 US, echocardiogra m, transthoracic , complete, w/ color flow completed [email or web address] [facility] [address], [place], [address], 04/29/2024 11:15:08 08/04/2024 US, liver completed [facility] (Radiology) [address] [place], [id number], 08/05/2024 10:43:54 08/04/2024 US, liver completed [email or web address] [place] [address] (Radiology) [address] [place], [address], 08/04/2024 15:19:42 01/04/2025 US, liver completed LAKISHA [facility] (Radiology) [address] [place], [id number], 01/06/2025 13:40:52 01/04/2025 US, liver completed [facility] (Radiology) [address] [place], [id number], 01/06/2025 13:40:51 Procedure Notes None recorded. Medical Equipment None Reported. Allergies No known drug allergies Medications Name Sig Start Date Stop Date Status Note LastModified by Organization Details LastModified Time atorvastati n 80 mg tablet TAKE ONE TABLET BY MOUTH EVERY DAY AT BEDTIME active Not Available Not Available No t Available atorvastati n 20 mg tablet TAKE 1 TABLET BY MOUTH ONCE DAILY TO IMPROVE CHOLESTER OL active Not Available Not Available No t Available Klor-Con 10 mEq tablet,exte nded release Take 1 {tablet_w ith_food} by oral route. 02/03 completed Not Available Not Available Not Available nifedipine ER 90 mg tablet,exte nded release Take 1 {tablet} by oral route. 02/03 completed Not Available Not Available Not Available Coreg 6.25 mg tablet Take twice a day by oral route. 02/03 completed Not Available Not Available Not Available glipizide ER 10 mg tablet, extended release 24 hr TAKE 1 TABLET BY MOUTH EVERY DAY 12/05 completed Not Available Not Available Not Available glipizide ER 5 mg tablet, extended release 24 hr TAKE 1 TABLET BY MOUTH ONCE DAILY TO IMPROVE DIABETES active Not Available Not Available No t Available amlodipine 2.5 mg tablet TAKE 1 TABLET BY MOUTH EVERY DAY 02/03 completed Not Available Not Available Not Available clopidogrel 75 mg tablet TAKE ONE TABLET BY MOUTH EVERY DAY active Not Available Not Available No t Available amlodipine 5 mg tablet TAKE 1 TABLET BY MOUTH EVERY DAY 08/07 completed Not Available Not Available Not Available allopurinol 100 mg tablet TAKE 1 TABLET BY MOUTH EVERY DAY active Not Available Not Available No t Available spironolact one 25 mg tablet TAKE 1 TABLET BY MOUTH EVERY DAY active Not Available Not Available No t Available doxazosin 8 mg tablet TAKE 1 TABLET BY MOUTH EVERYDAY AT BEDTIME active Not Available Not Available No t Available tamsulosin 0.4 mg capsule TAKE 1 CAPSULE BY MOUTH EVERY DAY active Not Available Not Available No t Available hydrocodone 7.5 mg-acetamin ophen 325 mg tablet TAKE 1 TABLET BY MOUTH EVERY 6 HOURS NEEDED 09/15 completed Not Available Not Available Not Available hydralazine 100 mg tablet TAKE 1 TABLET BY MOUTH TWICE A DAY 11/23 completed Not Available Not Available Not Available ferrous sulfate 325 mg (65 mg iron) tablet TAKE 1 TABLET BY MOUTH TWICE A DAY active Not Available Not Available No t Available lisinopril 10 mg tablet TAKE 1 TABLET BY MOUTH EVERY DAY 12/05 completed Not Available Not Available Not Available doxazosin 4 mg tablet Take 1 {tablet} by oral route. 08/07 completed Not Available Not Available Not Available aspirin 81 mg chewable tablet 1 {tablet} by oral route. active Not Available Not Available No t Available hydralazine 50 mg tablet TAKE 1 TABLET BY MOUTH TWICE A DAY 08/07 completed Not Available Not Available Not Available mupirocin 2 % topical ointment APPLY TO SURGICAL SITE DAILY. KEEP COVERED WITH BANDAGE active Not Available Not Available No t Available furosemide 20 mg tablet TAKE 2 TABLETS BY MOUTH EVERY DAY active Not Available Not Available No t Available ergocalcife rol (vitamin D2) 1,250 mcg (50,000 unit) capsule TAKE 1 CAPSULE BY MOUTH EVERY 2 WEEKS active Not Available Not Available No t Available lisinopril 40 mg tablet Take 1 {tablet} by oral route. 11/23 completed Not Available Not Available Not Available ondansetron 4 mg disintegrat ing tablet PLACE 1 TABLET ON TONGUE EVERY 6 HOURS NEEDED. 09/15 completed Not Available Not Available Not Available glipizide 5 mg tablet 02/03 completed Not Available Not Available Not Available Low Dose Aspirin 81 mg tablet,everette yed release Take 1 tablet every day by oral route. 08/15 completed Not Available Not Available Not Available lactulose 10 gram/15 mL oral solution TAKE 30ML BY MOUTH TWICE A DAY 09/15 completed Not Available Not Available Not Available famotidine 12/05 completed Not Available Not Available Not Available allopurinol 12/05 completed Not Available Not Available Not Available BD Ultra-Fine Short Pen Needle 31 gauge x 5/16 USE DIRECTED active Not Available Not Available No t Available Gavilax 17 gram/dose oral powder TAKE DIRECTED EVERY DAY 09/15 completed Not Available Not Available Not Available Accu-Chek Jessica Plus test strips USE TO TEST TWICE DAILY DIRECTED active Not Available Not Available No t Available Eliquis 5 mg tablet TAKE 1 TABLET BY MOUTH TWICE A DAY active Not Available Not Available No t Available Jazmine Burgess U-300 Insulin 300 unit/mL (1.5 mL) subcutaneou s pen INJECT SUBCUTANE OUSLY PER SLIDING SCALE: GLUCOSE VALUE 150-200 = 10 UNITS, >200 = 20 UNITS active Not Available Not Available No t Available Paxlovid 300 mg (150 mg x 2)-100 mg tablets in a dose pack TAKE 3 TABLETS BY MOUTH TWICE DAILY FOR 5 DAYS TO TREAT COVID 02/28 completed Not Available Not Available Not Available Vitals Date Recorded Body height Body mass index (BMI) Body weight Oxygen saturation Oxygen saturation in Arterial blood by Pulse oximetry Heart rate Systolic blood pressure Diastolic blood pressure Provider Name and Address Organization Details Last Updated DateTime 4 177.8 cm 28.6 kg/m2 50265.8 8 g 96 % 96 % 57 /min 138 mm[Hg] 58 mm[Hg] Jesusita Albert LPNT [facility] & [place] 4 14:32:28 Date Recorded Body height Body mass index (BMI) Body weight Oxygen saturation Oxygen saturation in Arterial blood by Pulse oximetry Heart rate Systolic blood pressure Diastolic blood pressure Provider Name and Address Organization Details Last Updated DateTime 4 177.8 cm 28.7 kg/m2 88213.4 7 g 96 % 96 % 60 /min 150 mm[Hg] 60 mm[Hg] Jesusita Albert LPNT [facility] & [place] 4 13:15:48 Date Recorded Body height Body mass index (BMI) Body weight Body temperature Oxygen saturation Oxygen saturation in Arterial blood by Pulse oximetry Heart rate Provider Name and Address Organization Details Last Updated DateTime 4 177.8 cm 29.2 kg/m2 79922.4 1 g 97.3 [degF] 95 % 95 % 89 /min Katt Jhon TONJA Albert LPNT [facility] & [place] 4 13:12:55 Date Recorded Body height Body mass index (BMI) Body weight Oxygen saturation Oxygen saturation in Arterial blood by Pulse oximetry Heart rate Systolic blood pressure Diastolic blood pressure Provider Name and Address Organization Details Last Updated DateTime 4 177.8 cm 26.4 kg/m2 61970 g 95 % 95 % 55 /min 140 mm[Hg] 58 mm[Hg] Jesusita SOSA [facility] & [place] 4 13:51:59 Date Recorded Body height Body mass index (BMI) Body weight Body temperature Oxygen saturation Oxygen saturation in Arterial blood by Pulse oximetry Heart rate Provider Name and Address Organization Details Last Updated DateTime 5 177.8 cm 26.7 kg/m2 02891.6 2 g 97.4 [degF] 96 % 96 % 76 /min Katt Bethel TONJA Albert LPNT [facility] & [place] 5 09:50:51 Social History Question Answer Notes LastModified by Organizat ion Details LastModified Time Tobacco Smoking Status Former Smoker Berta kelly TONJA Albert LPNT [facility] & [place] 12/05/2022 12:28:32 Do You Have An Advance Directive? No Information not available 12/05/2022 Are You Blind Or Do You Have Difficulty Seeing? No Information not available 12/05/2022 What Is Your Level Of Caffeine Consumption? Moderate [email or web address] Information not available 02/29/2024 When Did You Quit Smoking? 16+yearssinc elastcigaret te [email or web address] Information not available 08/15/2024 What Was The Date Of Your Most Recent Tobacco Screening? 01/18/2024 [email or web address] Information not available 05/18/2024 Are You Passively Exposed To Smoke? No Information not available 12/05/2022 How Much Tobacco Do You Smoke? 1 PPD Information not available 12/05/2022 How Many Years Have You Smoked Tobacco? 25 Information not available 12/05/2022 Sex: Unknown Functional Status Question Answer Note LastModified by Organizat ion Details LastModified Time Do you use any illicit or recreational drugs? No Information not available 12/05/2022 What is your level of alcohol consumption? None Information not available 12/05/2022 Do you or have you ever used smokeless tobacco? Never used smokeless tobacco Information not available 12/05/2022 What is your exercise level? Occasional Information not available 12/05/2022 Mental Status Question Answer Note LastModified by Organization D etails LastModified Time Do you feel stressed (tense, restless, nervous, or anxious, or unable to sleep at night)? [id number] Information not available 12/05/2022 Family History Nothing Reported Notes:Mother positive for he art disease Medical History Condition Response Diabetes Y Kidney or Bladder Problems Y High Cholesterol Y Liver Disease Y Heart Disease Y Hypertension Y Immunizations Vaccine Type Date Status Note Provider Nam e and Address Organization Details Recorded Time Influenza, split virus, trivalent, PF 06/28/2015 TONJA Mcdaniel - [place] & [place] 02/03/2023 13:09:36 Influenza, split virus, trivalent, PF 07/09/2016 completed TONJA Reyes [facility] & [place] 02/03/2023 13:09:36 Past Encounters Encounter ID Performer Location Encounter Start Date Encounter Closed Date Diagnosis/Indication Diagnosis SNOMED-CT Code Diagnosis ICD10 Code Diagnosis Note [id number] Ian Mondragon M.D [facility] [address] [facility] [address] 07/23/2022 13:55:19 07/23/2022 16:07:46 Cirrhosis of liver 43653442 K74.60 Secondary to LOPEZ. Doing well overall. Continue current diuretic regimen. Check CBC PT INR CMP AFP and ultrasound of the liver today. The patient is remaining active, he is doing very well overall. Continue to monitor. He can have as needed ultrasound evaluation for removal ascites. I have recommende d that in his case, he continue his Eliquis, if the ultrasound shows enough ascites for paracentes is he can then stop the Eliquis and come back the following week for paracentes is after being off of the Eliquis. Atrial fibrillation 4943 6004 I48.91 Continue Eliquis. Ascites 995558263 R18.8 [id number] Bill Jett MD [facility] [address] [facility] [place] [address] 09/15/2022 14:40:13 09/15/2022 15:23:02 Retention of urine 798832239 R33.9 Poor stream of urine 162 624324 R39.12 Nocturia 275121792 R35.1 Anticoagulant therapy 18 4696200 Z79.01 Screening for malignant neoplasm of prostate 239565746 Z12.5 [id number] Mika Knapp MD [facility] [address] [place] [address] 12/05/2022 12:41:02 12/05/2022 13:46:12 Atrial fibrillation 36156167 I48.91 chronic. Rates well controlled .Increase Eliquis to 5 b.i.d. Coronary atherosclerosis 656978709 I25.10 sp CABGDenies any anginal or heart failure symptoms.C ontinue aggressive risk factor modificati on.Continu e current cardiac regimen. History of coronary artery bypass grafting 520892351 Z95.1 Hyperlipidemia 60414032 E78.5 Continue statin Low fat/carboh ydrate diet Increase exercise Lose weight Essential hypertension 52581239 I10 Increase Norvasc 5 daily for better BP control. Patent foramen ovale 204 260191 Q21.12 [id number] ANTONIO Guillory [facility] [address] [place] [address] 01/07/2023 13:42:41 01/07/2023 14:30:28 Metabolic dysfunction-associate d steatohepatitis 518649056 K75.81 Patient continues to do well overall. Will obtain labs today. Continue paracentes is PRN, he is currently going every few months. He will call with any progressio n of symptoms. otherwise f/u in 6 months. Cirrhosis of liver K74.60 [id number] Mika Knapp MD [facility] [address] [place] [address] 02/03/2023 13:47:54 02/03/2023 14:16:21 Atrial fibrillation 70231180 I48.91 chronic. Rates well controlled .Increase Eliquis to 5 b.i.d. Coronary atherosclerosis 005165035 I25.10 sp CABGDenies any anginal or heart failure symptoms.C ontinue aggressive risk factor modificati on.Continu e current cardiac regimen. Hyperlipidemia 53701811 E78.5 Continue statin Low fat/carboh ydrate diet Increase exercise Lose weight Essential hypertension 91931209 I10 Continue current medication . Keep log Low-salt diet < 2 gm Na/day, Regular exercise Weight loss Patent foramen ovale 204 355357 Q21.12 History of coronary artery bypass grafting 513004896 Z95.1 Cirrhosis of liver K74.60 Chronic ki dney disease 091331594 N18.9 [id number] Ian Mondragon M.D [facility] [address] [place] [address] 07/15/2023 14:44:32 07/15/2023 15:27:08 Cirrhosis of liver 08285115 K74.60 No LOPEZ cirrhosis, not requiring therapeuti c paracentes is at this time. On minimal diuretic therapy Lasix 20 mg per day, Aldactone 25 mg per day. Doing well overall. No lower extremity edema. At this juncture check normal cirrhosis labs as per below, ultrasound screen for HCC. Continue to monitor. [id number] Mika Knapp MD [facility] [address] [place] [address] 08/07/2023 13:01:56 08/07/2023 13:36:51 Atrial fibrillation 14375060 I48.91 chronic. Rates well controlled .Continue Eliquis to 5 b.i.d. Coronary atherosclerosis 113567204 I25.10 sp CABGNo anginal or heart failure symptoms.C ontinue aggressive risk factor modificati on.Continu e current cardiac regimen. Hyperlipidemia 38438940 E78.5 Continue statin Low fat/carboh ydrate diet Increase exercise Lose weight Essential hypertension 19204000 I10 Continue current medication . Keep log Low-salt diet < 2 gm Na/day, Regular exercise Weight loss Patent foramen ovale 204 609568 Q21.12 History of coronary artery bypass grafting 379175644 Z95.1 Cirrhosis of liver 007 K74.60 Chronic ki dney disease 807241613 N18.9 [id number] Karyn Nolasco NP [facility] [address] [place] [address] 01/20/2024 14:23:38 01/22/2024 11:48:42 Cirrhosis of liver 48153420 K74.60 history of Lopez cirrhosis. Continues Lasix 20 mg and Aldactone 25 mg daily. No lower extremity edema. Increased abdominal distention over the past few weeks. He may require therapeuti c paracentes is given his symptoms. He plans to call and schedule appointmen t next week as he is prescribed Eliquis. Last paracentes is completed 01/2023. Recommend labs to formulate MELD. Recommend liver US as well as AFP to screen for HCC, continue q 6 months. [id number] Mika Knapp MD [facility] [place] [address] [place] [address] 02/29/2024 12:55:53 02/29/2024 13:37:44 Coronary atherosclerosis 110635604 I25.10 sp CABGNo anginal or heart failure symptoms.C ontinue aggressive risk factor modificati on.Continu e current cardiac regimen. Atrial fibrillation 4943 6004 I48.91 chronic. Rates well controlled .Continue Eliquis to 5 b.i.d. Hyperlipidemia 55289977 E78.5 Continue statin Low fat/carboh ydrate diet Increase exercise Lose weight Essential hypertension 76204818 I10 Continue current medication . Keep log Low-salt diet < 2 gm Na/day, Regular exercise Weight loss Patent foramen ovale 204 716831 Q21.12 History of coronary artery bypass grafting 183689714 Z95.1 Cirrhosis of liver 007 K74.60 Recommend abdominal US to evaluate for ascites , know cirrhotic. He has a standing order at [facility] via his GI MD for abdominal US which he will pursue. For now can increase Lasix to 40 daily or b.i.d. p.r.n. Chronic ki dney disease 185742511 N18.9 [id number] Mika Knapp MD [address] [place] [address] 04/05/2024 14:18:16 04/05/2024 16:09:45 Cirrhosis of liver 12048330 K74.60 Can increase Lasix to 40 daily or b.i.d. p.r.n. Coronary atherosclerosis 948488254 I25.10 sp CABGNo anginal or heart failure symptoms.C ontinue aggressive risk factor modificati on.Continu e current cardiac regimen. Atrial fibrillation 4943 6004 I48.91 chronic. Rates well controlled .Continue Eliquis to 5 b.i.d. Hyperlipidemia 07139755 E78.5 Continue statin Low fat/carboh ydrate diet Increase exercise Lose weight Essential hypertension 44147236 I10 Continue current medication . Keep log Low-salt diet < 2 gm Na/day, Regular exercise Weight loss Patent foramen ovale 204 917421 Q21.12 History of coronary artery bypass grafting 427731533 Z95.1 Chronic ki dney disease 608716235 N18.9 Dyspnea on exertion 6084 5006 R06.09 Increase Lasix to 40 daily or b.i.d. p.r.n.will recheck echothe patient has liver cirrhosis, chronic kidney disease with a creatinine around 2 GFR on 33 chronic AFib, diastolic dysfunctio n all probably contributi ng to dyspnea [id number] Mika Knapp MD [address] [place] [address] 05/02/2024 13:06:44 05/02/2024 13:38:25 Dyspnea on exertion 64945089 R06.09 multifacto rial including pulmonary hypertensi on , diastolic dysfunctio n, valvular heart disease ,anemia, renal insufficie ncy, cirrhosis and age all contributi ng.Increas e Lasix to 40 daily or b.i.d. p.r.n. Cirrhosis of liver 007 K74.60 Can increase Lasix to 40 daily or b.i.d. p.r.n. Coronary atherosclerosis 533677090 I25.10 sp CABGNo anginal or heart failure symptoms.C ontinue aggressive risk factor modificati on.Continu e current cardiac regimen. Atrial fibrillation 4943 6004 I48.91 chronic. Rates well controlled .Continue Eliquis to 5 b.i.d. Hyperlipidemia 61773045 E78.5 Continue statin Low fat/carboh ydrate diet Increase exercise Lose weight Essential hypertension 73760831 I10 Continue current medication . Keep log Low-salt diet < 2 gm Na/day, Regular exercise Weight loss Patent foramen ovale 204 806222 Q21.12 History of coronary artery bypass grafting 807145969 Z95.1 Chronic ki dney disease 332052445 N18.9 creatinine 1.9 GFR 36 from 03/2024 [id number] Karyn Nolasco NP [facility] [address] [place] [address] 05/18/2024 12:41:31 05/18/2024 13:52:09 Cirrhosis of liver 32130593 K74.60 history of Lopez cirrhosis. Continues Lasix 20 mg and Aldactone 25 mg daily with recent lower extremity edema. He is scheduled to follow up with Nephrology tomorrow. May consider increasing diuretics pending Nephrology recommenda tion. Increased abdominal distention however last US 03/21/24 with only small amount in the RUQ, insufficie nt for paracentes is. He may require therapeuti c paracentes is in the future if symptoms progress. He continues to follow a low sodium diet. Last paracentes is completed 01/2023. Due for liver US as well as AFP to screen for HCC 07/2024, continue q 6 months. [id number] Mika Knapp MD [facility] [address] [facility] [address] [place] [address] 08/15/2024 13:44:36 08/15/2024 14:13:34 Cirrhosis of liver 54276488 K74.60 Continue Lasix to 40 daily or b.i.d. p.r.n. Coronary atherosclerosis 408460720 I25.10 sp CABGNo anginal or heart failure symptoms.C ontinue aggressive risk factor modificati on.Continu e current cardiac regimen. Atrial fibrillation 4943 6004 I48.91 chronic. Rates well controlled .Continue Eliquis to 5 b.i.d. Hyperlipidemia 93107442 E78.5 Continue statin Low fat/carboh ydrate diet Increase exercise Lose weight Essential hypertension 04159658 I10 Continue current medication . Keep log Low-salt diet < 2 gm Na/day, Regular exercise Weight loss Chronic ki dney disease 419480423 N18.9 creatinine 1.9 GFR 36 from 03/2024 Patent foramen ovale 204 980754 Q21.12 History of coronary artery bypass grafting 072966746 Z95.1 [id number] Ian Mondragon M.D [facility] [address] [place] [address] 11/23/2024 09:33:56 11/23/2024 10:47:10 Cirrhosis of liver 97327643 K74.60 history of Lopez cirrhosis. No signs of decompensa tion. Continues Lasix 20 mg and Aldactone 25 mg daily as well as low sodium diet. Liver ultrasound 07/2024 noted cirrhotic liver with small amount of perihepati c ascites. Last paracentes is completed 01/2023. Due for liver US as well as AFP to screen for HCC 12/2024, continue q 6 months. Plan for labs to formulate MELD. Bilateral lower limb edema 101370982 R60.0 Continues Lasix 20 mg and Aldactone 25 mg as well as low-sodium diet. No edema on physical exam today. Health Concerns Section Related Observation LastModified by Organization Detai ls LastModified Time None Recorded Concern Status LastModified by Organization Details LastModified Time None Recorded Advance Directives Directive N: Payers Insurance Date Sequence Insurance Name Policy Number Policy Meraz Covered Member ID Meraz Member ID Guarantor Name 02/06/2025 1 [employer] (MEDICARE REPLACEMENT/A DVANTAGE - PPO) Venancio Willis [id number] Venancio Willis 08/15/2024 1 [employer]LO CODY [place] BLUE ACCESS (PPO) [id number] Venancio Willis [id number] Venancio Willis Notes Date Note Type Note Provider Name and Address Organization Details Recorded Time 04/05/2024 text/html 78 M who is here for follow-upPCP: Sangeetha Montalvo, [place], [place] He c/o sob on exertionHe c/o Abdominal distention but recently had evaluation for paracentesis with no significant fluid. He is gained about 18-20 lb of weight over the past 6 months or so.No chest pain, PND, orthopnea, peripheral edema, palpitations, presyncope, syncope + Lopez cirrhosis on Lasix 20 mg and Aldactone 25 mg daily.+ CAD sp CABG 1993 - no anginal or CHF symptoms+ AF- chronic - denies palpitations . Not on any AV ehsan blocking agents because of bradycardia+ h/o CVA, on Eliquis 5 BID+HLD-on statinLipids : 116/61/40/72+ DM A1C 6.9+CVA? Recent MRI- showed no acute CVA but chronic ischemic changes+PFTs from 08/2017- moderate COPD. Former smoker- quit 1993.+ CKD-creatinine 2.1, GFR 33, followed by Dr [facility]vel[facility] 10/09/2022: BUN/ creatinine 66/2.9, hemoglobin/hematocrit 7/21, platelets 140 ECHO 10/09/2022 Dr Camara: normal EF severe RV enlargement with PASP of 65-70 mm, htve-ts-unmzzakk AI, yhndsjui-vw-ygloid TREcho 11/15/2020: EF over 55%, moderately dilated RV with moderately decreased function, severe biatrial enlargement, mild AI, mild TR with PA systolic pressure of over 60Carotid Dopplers 10/2019:Dr. Gamino 50-69% disease bilateralNuclear stress test 05/12/2019:No evidence of myocardial ischemia with normal calculated ejection fraction of 62%.Increased RV tracer uptake suggestive of high left ventricular diastolic pressure or pulmonary hypertension. These findings were similar to the findings from a stress test dated 09-01-2016.ECG 11/14/2020: AFib rate of 93, rightward axis, RSR prime QRS 94ECG 02/01/2016: afib 55 , IRBBB, with aberrant conduction Mika Knapp MD [address], [place], [address], [place] - [facility] - [place] & [place] 04/05/2024 16:17:05 05/02/2024 text/html 78 M who is here for follow-upPCP: Sangeetha Montalvo, [place], [place] Recent labs with PCP 04/26/24 reviewed CR1.9, gfr 35, LFTs- nml, Mild anemia Hb 10,A1C 6.2we discussed recently done echo results which is more or less stable compared to 202. He continue to complain of dyspnea on exertion. No chest pain. We had increased Lasix to 40 b.i.d. which helped some. We would more or less stableNo c PND, orthopnea, peripheral edema, palpitations, presyncope, syncope + Lopez cirrhosis on Lasix 20 mg and Aldactone 25 mg daily.+ CAD sp CABG 1993 - no anginal or CHF symptoms+ AF- chronic - no palpitations . Not on any AV ehsan blocking agents because of bradycardia+ h/o CVA, on Eliquis 5 BID+HLD-on statinLipids : 116/61/40/72+ DM A1C 6.9+CVA? Recent MRI- showed no acute CVA but chronic ischemic changes+PFTs from 08/2017- moderate COPD. Former smoker- quit 1993.+ CKD-creatinine 2.1, GFR 33, followed by Dr Avelar [facility] 10/09/2022: BUN/ creatinine 66/2.9, hemoglobin/hematocrit 7/21, platelets 140 Echo 03/2024Normal LV size with normal function. The ejection fraction is 55-60%. Left ventricular filling cannot be assessed due to atrial fibrillation. There is mild concentric LVH.Moderately dilated right ventricle with mildly decreased function.Moderately dilated left atrium.Severely dilated right atrium.There is mild-moderate aortic regurgitation.There is mild mitral regurgitation.There is mild-moderate tricuspid regurgitation. Severely increased PASP (69 mmHg).No major changes compared 2020 ECHO 10/09/2022 Dr Camara: normal EF severe RV enlargement with PASP of 65-70 mm, repn-fg-xofcwdhs AI, lfpmdkoh-vz-xnsixd TREcho 11/15/2020: EF over 55%, moderately dilated RV with moderately decreased function, severe biatrial enlargement, mild AI, mild TR with PA systolic pressure of over 60Carotid Dopplers 10/2019:Dr. Gamino 50-69% disease bilateralNuclear stress test 05/12/2019:No evidence of myocardial ischemia with normal calculated ejection fraction of 62%.Increased RV tracer uptake suggestive of high left ventricular diastolic pressure or pulmonary hypertension. These findings were similar to the findings from a stress test dated 09-01-2016.ECG 11/14/2020: AFib rate of 93, rightward axis, RSR prime QRS 94ECG 02/01/2016: afib 55 , IRBBB, with aberrant conduction Mika Knapp MD [address], [place], [address], [facility] & [place] 05/02/2024 13:40:58 05/18/2024 text/html Patient returns to clinic for follow-up on cirrhosis. He does report some recent lower extremity edema and increased abdominal pressure over the past few weeks. Abdominal ultrasound completed 03/21/2024 noted small amount of abdominal ascites most pronounced within the right upper quadrant however insufficient for therapeutic paracentesis. He continues low dose diuretics and follows a low sodium diet. He is scheduled to follow up with Nephrology tomorrow. He continues Eliquis for Afib. Reports daily bowel movements without melena. Karyn Nolasco NP [address] [place] [address], [address], [place], [address], [facility] & [place] 05/25/2024 14:35:49 08/15/2024 text/html 79 M who is here for follow-upPCP: Sangeetha Montalvo, [place], [place] He feels really good. Euvolemic on current diuretic regimen.CHALO/ascites well controlled.Active , walking regular.No specific cardiovascular complaints today. No chest pain, shortness of breath, PND, orthopnea, peripheral edema, palpitations, presyncope, syncope + Lopez cirrhosis .on Lasix 40 mg and Aldactone 25 mg daily.+ CAD sp CABG 1993 - no anginal or CHF symptoms+ AF- chronic - no palpitations . Not on any AV ehsan blocking agents because of bradycardia+ h/o CVA, on Eliquis 5 BID+HLD-on statinLipids : 116/61/40/72+ DM A1C 6.9+CVA? Recent MRI- showed no acute CVA but chronic ischemic changes+PFTs from 08/2017- moderate COPD. Former smoker- quit 1993.+ CKD-creatinine 2.1, GFR 33, followed by Dr Avelar Labs 04/26/24 reviewed CR1.9, gfr 35, LFTs- nml, Mild anemia Hb 10, A1C 6.2Labs 10/09/2022: BUN/ creatinine 66/2.9, hemoglobin/hematocrit 04/17, platelets 140 Echo 03/2024Normal LV size with normal function. The ejection fraction is 55-60%. Left ventricular filling cannot be assessed due to atrial fibrillation. There is mild concentric LVH.Moderately dilated right ventricle with mildly decreased function.Moderately dilated left atrium.Severely dilated right atrium.There is mild-moderate aortic regurgitation.There is mild mitral regurgitation.There is mild-moderate tricuspid regurgitation. Severely increased PASP (69 mmHg).No major changes compared 2020 ECHO 10/09/2022 Dr Camara: normal EF severe RV enlargement with PASP of 65-70 mm, htio-xa-gkfszvnn AI, tjoascpl-mz-qitvod TREcho 11/15/2020: EF over 55%, moderately dilated RV with moderately decreased function, severe biatrial enlargement, mild AI, mild TR with PA systolic pressure of over 60Carotid Dopplers 10/2019:Dr. Gamino 50-69% disease bilateralNuclear stress test 05/12/2019:No evidence of myocardial ischemia with normal calculated ejection fraction of 62%.Increased RV tracer uptake suggestive of high left ventricular diastolic pressure or pulmonary hypertension. These findings were similar to the findings from a stress test dated 09-01-2016.ECG 11/14/2020: AFib rate of 93, rightward axis, RSR prime QRS 94ECG 02/01/2016: afib 55 , IRBBB, with aberrant conduction Mika Knapp MD [address], [place], [address], [facility] - [place] & [place] 08/15/2024 15:56:56 11/23/2024 text/html Patient returns to clinic today for follow-up on cirrhosis. Reports having MA 2 weeks ago with 2 stents placed. He continues to follow with Dr. Garcia. He has been feeling significant better following stent placement. He denies abdominal pain, jaundice, or lower extremity edema. He continues diuretics as well as low sodium diet. Liver ultrasound completed 07/2024 noted cirrhosis with small amount of perihepatic ascites. He continues Eliquis for Afib. Reports daily bowel movements without melena. Karyn Nolasco NP [address] [place] [address], [address], [place], [address], [facility] [[email or web address]] - [place] - [place] & [place] 11/25/2024 10:41:56
--- OUTSIDE RECORDS SUMMARY | 2025-02-07 13:09 | XMS_ITS | Continuity of Care Document ---
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 It does not include entries that were removed or entered in error. Problem Status Onset Date Problem Type Date of Resolution Comments Source Atrial fibrillation Active 01/27/20 16 Condition Jul 31, 2016 Entered By: JOAQUINA MCDOWELL Comment: found on routine exam [place] [facility] CAD - Coronary artery disease (SNOMED CT 11815862) Active Condition [place] Diabetes mellitus (SNOMED CT 68126266) Active Condition [place] Gastroesophageal reflux disease Active Condition [place] [place] [facility] HTN - Hypertension (SNOMED CT 10651625) Active Condition [place] Hyperlipidemia (SNOMED CT 04947485) Active Condition [place] [facility] 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 Condition [place] [facility] Long-term current use of anticoagulant Active Condition [place] [facility] Malignant neoplasm of thyroid gland (ICD-9-CM 193.) [facility] Unspecified disorder of prostate (ICD-9-CM 602.9) Active Condition [place] [facility] Blood in Stool (ICD-9-CM 578.1) Inactive Condition 08/13/2018 [place] [facility] Onychogryposis Inactive Condition 08/13/2018 [place] [facility] Onychomycosis Inactive Condition 08/13/2018 [place] [facility] Social and personal history finding Inactive Condition 08/13/2018 Nov 26, 2015 Entered By: JOAQUINA MCDOWELL Comment: 2012, no tobacco no etohJul 31, 2016 Entered By: JEREMIAS,JOAQUINA H R Comment: enjoys golf plays mult times per week [place] [facility] Tinea Unguium * (ICD-9-CM 110.1) Inactive Condition 08/13/2018 [place] [facility] Medications Combined list of outpatient medications [...] ORAL ACTIVE JEAN MORELOS 2017 [place] [facility] ATORVASTATI N CA 40MG TAB TAKE ONE-HALF TABLET BY MOUTH DAILY ORAL ACTIVE [place] HENNING S 2014 [place] FUROSEMIDE 20MG TAB TAKE ONE TABLET BY MOUTH DAILY ORAL ACTIVE ROGE MCDOWELL EPH R 2015 [place] [facility] GLIPIZIDE 10MG TAB,SA TAKE TWO TABLETS BY MOUTH EVERY EVENING ORAL ACTIVE JEAN MORELOS 2017 [place] [facility] HYDRALAZINE HCL 50MG TAB TAKE TWO TABLETS BY MOUTH TWICE A DAY ORAL ACTIVE ROGE MCDOWELL EPH R 2015 [place] [facility] INSULIN GLARGINE (TOUJEO-PAULINO OSTAR PEN) INJ INJECT 35 UNITS UNDER THE SKIN DAILY SUBCUT ANEOUS ACTIVE JEAN MORELOS 2017 [place] [facility] LISINOPRIL 40MG TAB TAKE ONE TABLET BY MOUTH DAILY ORAL ACTIVE Orlando HENNINGA S 2014 [place] METFORMIN HCL 850MG TAB TAKE ONE TABLET BY MOUTH DAILY ORAL ACTIVE Orladno HENNING S 2014 [place] METOPROLOL SUCCINATE 100MG TAB,SA TAKE ONE-HALF TABLET BY MOUTH TWICE A DAY ORAL ACTIVE ROGE MCDOWELL EPH R 2015 [place] [facility] PIOGLITAZON E HCL 30MG TAB TAKE ONE TABLET BY MOUTH DAILY ORAL ACTIVE Orlando HENNING S 2014 [place] RANITIDINE HCL 300MG TAB TAKE ONE TABLET BY MOUTH TWICE A DAY ORAL ACTIVE Orlando HENNING S 2014 [place] RIVAROXABAN 20MG TAB TAKE ONE TABLET BY MOUTH EVERY EVENING ORAL ACTIVE ROGE MCDOWELL R 2015 [place] [facility] Immunizations Combined list of available immunizations from the Department of Defense and Veterans Affairs facilities. 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 Comments Source INFLUENZA, SEASONAL, INJECTABLE 2017 141 complet ed [place] [facility] INFLUENZA A & B (HISTORICAL) 2016 88 complet ed [facility] INFLUENZA A & B (HISTORICAL) 2015 88 complet ed [place] [facility] PNEUMOCOCCAL CONJUGATE PCV 13 2015 133 complet ed verbal [facility] INFLUENZA A & B (HISTORICAL) 2014 88 complet ed [place] [facility] PNEUMOCOCCAL POLYSACCHARID E PPV23 2014 33 complet ed [facility] INFLUENZA A & B (HISTORICAL) 2013 88 complet ed [facility] INFLUENZA A & B (HISTORICAL) 2003 NONE 88 complet ed MEETS CRITERIA - DIABETIC/ CAD [place] [facility] TD(ADULT) UNSPECIFIED FORMULATION 2003 NONE 139 complet ed Completed Series, LOT #[id number]; EXP. 07/03 [place] INFLUENZA A & B (HISTORICAL) 2003 88 complet ed no reaction [place] [facility] FLU,3 YRS (HISTORICAL) 2002 ROBERTO CHAHAL 88 complet ed [place] PNEUMOCOCCAL, UNSPECIFIED FORMULATION 2002 109 complet ed no reaction [place] [facility] INFLUENZA, UNSPECIFIED FORMULATION 2002 88 complet ed [place] [facility] Encounters Combined list of: 1) Encounters from Department of Veterans Affairs facilities going backup to the last 18 months, not all [place] inpatient encounters are included; 2) Encounters from the Department of Defense facilities going backup to 280 months. Location Location Details Encounter Type Encounter Number Reason For Visit Attending Provider ADM Date DC Date Status Disposition Source [facility] Outpatient Encounter [id number] 07/22 [place] Outpatient Encounter [id number] 01/26 [place] [facility] Outpatient Encounter [id number] 01/26 [place] [facility] Social History Combined list of available smoking, tobacco, and other social history from Department of Defense and Veterans Affairs facilities. Social History Type Response Date Comment [facility] e Tobacco smoking status [facility] NEVER USED 08/10/2018 [facility] History of tobacco use V9 LIFETIME NON-USER OF TOBACCO 07/31/2016 [facility] History of tobacco use V9 QUIT TOBACCO >7 YEARS AGO 05/24/2015 [facility] History of tobacco use HF V9 CURRENT NON-SMOKER 03/24/2005 10yrs [facility] History of tobacco use HF V9 CURRENT NON-SMOKER 03/24/20031993 [facility]
--- OUTSIDE RECORDS SUMMARY | 2025-02-07 13:09 | XMS_ITS | Data Portability ---
Author Organization [facility] GLYNN Gurrola [place] Address [address] [place] [address] Care Team Providers [employer] Name Role Phone SAUD SANGEETHA Primary Care Provider Assessment Encounter Date Assessment Date Assessment LastModified by Organization Details LastModified Time 09/19/2021 09/19/2021 We reviewed the diagnosis of hydrocele and options of management. He wishes to proceed with hydrocelectomy. We reviewed the risks and benefits of procedure. [email or web address] Not available 09/19/2021 17:02:12 10/15/2021 10/15/2021 SURGERY DATE: 10/15/2021 PREOPERATIVE DIAGNOSIS: Right Hydrocele POSTOPERATIVE DIAGNOSIS: Right Hydrocele PROCEDURE: Hydrocelectomy SURGEON: Zeus Marcano MD ANESTHESIA: General ESTIMATED BLOOD LOSS: 5 ml COMPLICATIONS: None. SPECIMENS: None OPERATIVE NOTE: Patient was correctly identified in the preoperative holding area. Informed consent was obtained. He is taken to the operating room and positioned supine position. Anesthesia induced. All pressure points padded. Proper timeout was completed. Preoperative antibiotics given. The genitourinary area was shaved, prepped, draped in the normal sterile fashion. Local injectable analgesia infiltrated along median raphe. Incision made with scalpel through skin and subcutaneous tissues. Remaining dissection performed with electrocautery to open Dartos and cremasteric fibers. The hydrocele was everted from scrotal and remain adventitial tissue dissected away to expose hydrocele sac. Hydrocele sac was opened and fluid drained away. Hydrocele sac was excised using electrocautery. Hemostasis confirmed. The testicle was replaced into the scrotum in normal anatomic position. The dartos layer was closed with running Vicryl and skin reapproximated with running chromic suture. Antibiotic ointment and sterile dressings placed. Patient tolerated procedure well. DISPOSITION: The patient tolerated the procedure well. He was taken to the recovery room in stable condition. He will be discharged home with instructions for outpatient follow up. [email or web address] Not available 10/15/2021 15:57:36 11/21/2021 11/21/2021 Is doing well following surgery. Continue scrotal support. [email or web address] Not available 11/24/2021 14:46:55 Plan of Treatment Reminders Order Date Submit Date Provider Last Modified By Organization Details Last Modified Time Details Appointments None recorded. 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 Procedures None recorded. Surgeries tunica vaginalis, excision of hydrocele, unilateral (SURG) 2020 022 [email or web address] Of Service Professional Charges, [address] [facility], [facility] [address], [place], [address], 16:27:11 Imaging None recorded. Medication Orders hydrocodone 7.5 mg-acetamin ophen 325 mg tablet 2021 022 [email or web address] [facility][id number], [address] [place], [address], 19:14:21 Patient TargetsNo targets recorded. Patient Instructions Encounter Date Encounter Id Patient Instructions Last Modified By Organization Details Last Modified Time 11/21/2021 [id number] learning about healthy weight [email or web address] Not available 11/24/2021 14:46:56 Reason for Referral None Reported. Results Created Date Observation Date Name Description Value Unit Range Abnormal Flag Note LastModifiedBy Organization Detail LastModifiedTime 09/19/20 21 09/19/2021 urina lysis panel , auto Unknown Analyte Clean Catch Not Available [facility] Extended Services With [address], [place], [address], 09/19/2021 17:41:39 09/19/2009/19/2021 urina lysis panel , auto Unknown Analyte Yellow Not Available [facility] Extended [facility] With [address] [place], [address], 09/19/2021 17:41:39 09/19/20 21 09/19/2021 urina lysis panel , auto Unknown Analyte Clear Not Available [facility] Extended Services With [address], [place], [address], 09/19/2021 17:41:39 09/19/20 21 09/19/2021 urina lysis panel , auto Unknown Analyte 1.010 Not Available [facility] Extended Services With [address] [place], [address], 09/19/2021 17:41:39 09/19/20 21 09/19/2021 urina lysis panel , auto Unknown Analyte 1.003- 1.035 Not Available [facility] Extended Services With [address] [place], [address], 09/19/2021 17:41:39 09/19/20 21 09/19/2021 urina lysis panel , auto Unknown Analyte 5.0 Not Available [facility] Extended Services With [address] [place], [address], 09/19/2021 17:41:39 09/19/20 21 09/19/2021 urina lysis panel , auto Unknown Analyte 5.0-8. 0 Not Available [facility] Extended Services With [address], [place], [address], 09/19/2021 17:41:39 09/19/20 21 09/19/2021 urina lysis panel , auto Unknown Analyte Negati ve Not Available [facility] Extended Services With [address], [place], [address], 09/19/2021 17:41:39 09/19/2009/19/2021 urina lysis panel , auto Unknown Analyte Negati ve Not Available [facility] Extended Services With [address], [place], [address], 09/19/2021 17:41:39 09/19/20 21 09/19/2021 urina lysis panel , auto Unknown Analyte Negati ve Not Available [facility] Extended Services With [address], [place], [address], 09/19/2021 17:41:39 09/19/20 21 09/19/2021 urina lysis panel , auto Unknown Analyte Negati ve Not Available [facility] Extended Services With [address], [place], [address], 09/19/2021 17:41:39 09/19/20 21 09/19/2021 urina lysis panel , auto Unknown Analyte Negati ve Not Available [facility] Extended Services With [address] [place], [address], 09/19/2021 17:41:39 09/19/20 21 09/19/2021 urina lysis panel , auto Unknown Analyte Negati ve Not Available [facility] Extended Services With [address] [place], [address], 09/19/2021 17:41:39 09/19/20 21 09/19/2021 urina lysis panel , auto Unknown Analyte Normal Not Available [facility] Extended Services With [address] [place], [address], 09/19/2021 17:41:39 09/19/2009/19/2021 urina lysis panel , auto Unknown Analyte Normal Not Available [facility] Extended Services With [address] [place], [address], 09/19/2021 17:41:39 09/19/20 21 09/19/2021 urina lysis panel , auto Unknown Analyte Negati ve Not Available [facility] Extended Services With [address] [place], [address], 09/19/2021 17:41:39 09/19/20 21 09/19/2021 urina lysis panel , auto Unknown Analyte Negati ve Not Available [facility] Extended Services With [address] [place], [address], 09/19/2021 17:41:39 09/19/20 21 09/19/2021 urina lysis panel , auto Unknown Analyte Normal Not Available [facility] Extended Services With [address] [place], [address], 09/19/2021 17:41:39 09/19/20 21 09/19/2021 urina lysis panel , auto Unknown Analyte Normal 1 mg/dl Not Available [facility] Extended Services With [address] [place], [address], 09/19/2021 17:41:39 09/19/20 21 09/19/2021 urina lysis panel , auto Unknown Analyte Negati ve Not Available [facility] Extended Services With [address], [place], [address], 09/19/2021 17:41:39 09/19/20 21 09/19/2021 urina lysis panel , auto Unknown Analyte Negati ve Not Available [facility] Extended Services With [address], [place], [address], 09/19/2021 17:41:39 09/19/20 21 09/19/2021 urina lysis panel , auto Unknown Analyte Negati ve Not Available [facility] Extended Services With [address], [place], [address], 09/19/2021 17:41:39 09/19/20 21 09/19/2021 urina lysis panel , auto Unknown Analyte Negati ve Not Available [facility] Extended Services With [address], [place], [address], 09/19/2021 17:41:39 10/11/19 22 10/14/2021 SARS- COV-1 9 RNA, PCR sars cov-19 result NEGATI VE negati ve normal Not Available [facility] [address] [place] [address], [place], [address], 10/14/2021 09:21:38 10/15/19 22 10/15/2021 SURGI SERGIO surgical SEE BELOW Depar tment of Patho logy Surgi sergio Patho logy Repor t NAME: KAYLA JONES PATH. :SS-2 2005 61 Copy to: Diagn osis: [place] yuliet sac: Vascu lar fibro muscu lar tissu e lined focal ly by mesot heliu m, consi stent with hydro yuliet sac. SOURC E OF SPECI MEN: HYDRO YULIET, SAC CLINI SERGIO INFOR MATIO N: HYDRO YULIET OF TESTI S Gross Descr iptio n: Recei sulaiman in forma mariya label ed with the patie nt's name and desig nated as hydr ocele sac are two irreg ular fragm ents of pink- charles fibro membr anous soft tissu e which are 5.5 x 5.0 x 0.2 cm and 6.5 x 4.5 x 0.2 cm. Both tissu e fragm ents have a zoya h linin g with no disti nct lesio ns. Repre senta tive secti ons are submi tted in a singl e casse tte. JAB 10/16 12:18 PM Micro scopi c Descr iptio n: A micro scopi c exami natio n has been perfo rmed. BYRON Antony MD Clemencia d Out Date: 10/17 13:06 Page 1 of 1 Not Available [facility] [address] [place] [address], [address], 10/17/2021 13:07:32 11/21/19 22 11/21/2021 urina lysis panel , auto Unknown Analyte Clean Catch Not Available [facility] Extended Services With [address], [place], [address], 11/21/2021 19:18:07 11/21/19 22 11/21/2021 urina lysis panel , auto Unknown Analyte Yellow Not Available [facility] With [address], [place], [address], 11/21/2021 19:18:07 11/21/19 22 11/21/2021 urina lysis panel , auto Unknown Analyte Clear Not Available [facility] Extended Services With [address], [place], [address], 11/21/2021 19:18:07 11/21/19 22 11/21/2021 urina lysis panel , auto Unknown Analyte 1.020 Not Available [facility] Extended Services With [address] [place], [address], 11/21/2021 19:18:07 11/21/19 22 11/21/2021 urina lysis panel , auto Unknown Analyte 1.003- 1.035 Not Available [facility] Extended Services With [address] [place], [address], 11/21/2021 19:18:07 11/21/19 22 11/21/2021 urina lysis panel , auto Unknown Analyte 5.0 Not Available [facility] Extended Services With [address] [place], [address], 11/21/2021 19:18:07 11/21/19 22 11/21/2021 urina lysis panel , auto Unknown Analyte 5.0-8. 0 Not Available [facility] Extended Services With [address] [place], [address], 11/21/2021 19:18:07 11/21/19 22 11/21/2021 urina lysis panel , auto Unknown Analyte Negati ve Not Available [facility] Extended Services With [address] [place], [address], 11/21/2021 19:18:07 11/21/19 22 11/21/2021 urina lysis panel , auto Unknown Analyte Negati ve Not Available [facility] Extended Services With [address] [place], [address], 11/21/2021 19:18:07 11/21/19 22 11/21/2021 urina lysis panel , auto Unknown Analyte Negati ve Not Available [facility] Extended Services With [address] [place], [address], 11/21/2021 19:18:07 11/21/19 22 11/21/2021 urina lysis panel , auto Unknown Analyte Negati ve Not Available [facility] Extended Services With [address] [place], [address], 11/21/2021 19:18:07 11/21/19 22 11/21/2021 urina lysis panel , auto Unknown Analyte Negati ve Not Available [facility] Extended Services With [address] [place], [address], 11/21/2021 19:18:07 11/21/19 22 11/21/2021 urina lysis panel , auto Unknown Analyte Negati ve Not Available [facility] Extended Services With [address] [place], [address], 11/21/2021 19:18:07 11/21/19 22 11/21/2021 urina lysis panel , auto Unknown Analyte Normal Not Available [facility] Extended Services With [address] [place], [address], 11/21/2021 19:18:07 11/21/19 22 11/21/2021 urina lysis panel , auto Unknown Analyte Normal Not Available [facility] Extended Services With [address] [place], [address], 11/21/2021 19:18:07 11/21/19 22 11/21/2021 urina lysis panel , auto Unknown Analyte Negati ve Not Available [facility] Extended Services With [address] [place], [address], 11/21/2021 19:18:07 11/21/19 22 11/21/2021 urina lysis panel , auto Unknown Analyte Negati ve Not Available [facility] With [address] [place], [address], 11/21/2021 19:18:07 11/21/19 22 11/21/2021 urina lysis panel , auto Unknown Analyte Normal Not Available [facility] Extended Services With [address] [place], [address], 11/21/2021 19:18:07 11/21/19 22 11/21/2021 urina lysis panel , auto Unknown Analyte Normal 1 mg/dl Not Available [facility] Extended Services With [address] [place], [address], 11/21/2021 19:18:07 11/21/19 22 11/21/2021 urina lysis panel , auto Unknown Analyte Negati ve Not Available [facility] Extended Services With [address] [place], [address], 11/21/2021 19:18:07 11/21/19 22 11/21/2021 urina lysis panel , auto Unknown Analyte Negati ve Not Available [facility] Extended Services With [address] [place], [address], 11/21/2021 19:18:07 11/21/19 22 11/21/2021 urina lysis panel , auto Unknown Analyte Negati ve Not Available [facility] Extended Services With [address] [place], [address], 11/21/2021 19:18:07 11/21/19 22 11/21/2021 urina lysis panel , auto Unknown Analyte Negati ve Not Available [facility] Extended Services With [address] [place], [address], 11/21/2021 19:18:07 Result Notes None recorded. Medical Equipment None Reported. Allergies No known drug allergies Medications Name Sig Start Date Stop Date Status Note LastModified by Organization Details LastModified Time atorvastati n 20 mg tablet Take 1 tablet every day by oral route. active Not Available Not Available No t Available nifedipine ER 90 mg tablet,exte nded release Take 1 tablet every day by oral route. active Not Available Not Available No t Available allopurinol 100 mg tablet Take 1 tablet every day by oral route. active Not Available Not Available No t Available famotidine 20 mg tablet Take 1 tablet twice a day by oral route. active Not Available Not Available No t Available hydrocodone 7.5 mg-acetamin ophen 325 mg tablet Take 1 tablet every 6 hours by oral route as needed. 11/21 completed Not Available Not Available Not Available hydralazine 100 mg tablet Take 1 tablet twice a day by oral route. active Not Available Not Available No t Available doxazosin 4 mg tablet Take 1 tablet every day by oral route. active Not Available Not Available No t Available furosemide 20 mg tablet Take 1 tablet every day by oral route. active Not Available Not Available No t Available ondansetron 4 mg disintegrat ing tablet Place 1 tablet every 6 hours by transling ual route as needed. 11/21 completed Not Available Not Available Not Available glipizide 5 mg tablet Take 1 tablet twice a day by oral route. active Not Available Not Available No t Available Asprin Ec Low Dose 81 mg tablet,everette yed release Take 1 tablet every day by oral route. active Not Available Not Available No t Available tamsulosin active Not Available Not Av ailable Not Available lisinopril active Not Available Not Av ailable Not Available potassium Cl-calcium phos-mag active Not Available Not Available Not Available calcium carb,glucon -vitamin D2 active Not Available Not Available Not Available Eliquis 5 mg tablet Take 1 tablet twice a day by oral route. active Not Available Not Available No t Available Jazmine SoloStar U-300 Insulin active Not Available Not Available Not Available B12 Active 1,000 mcg chewable tablet Take by oral route. active Not Available Not Available No t Available Vitals Date Recorded Body height Body mass index (BMI) Body weight Provider Name and Address Organization Details Last Updated DateTime 09/19/2021 177.8 cm 27.3 kg/m2 39741.55 g Mat Lenz [facility] 09/19/2021 17:40:04 Date Recorded Body height Body mass index (BMI) Body weight Provider Name and Address Organization Details Last Updated DateTime 11/21/2021 177.8 cm 27.3 kg/m2 99718.55 g Yoav Vicente [facility] 11/21/2021 19:14:10 Social History Question Answer Notes LastModified by Organizat ion Details LastModified Time Tobacco Smoking Status Former Smoker Mat kelly [facility] 09/19/2021 17:40:28 What Was The Date Of Your Most Recent Tobacco Screening? 11/21/2021 [email or web address] Information not available 11/21/2021 What Is Your Relationship Status? Information not available 09/19/2021 Sex: Unknown Functional Status Question Answer Note LastModified by Organization D etails LastModified Time What is your level of alcohol consumption? None Information not available 09/19/2021 Mental Status None recorded. Family History Relationship Description Onset Age of this Age Resolved Age Notes LastModified by Organization Details LastModified Time Father No current problems or disability [email or web address] Not available 09/19 17:40:18 Mother No current problems or disability [email or web address] Not available 09/19 17:40:18 Medical History Condition Response Diabetes Y False Teeth Y Heart Conditions Y Heart Attack (MS) Y Heart Disease Y Hypertension Y Kidney Disease Y Past Encounters Encounter ID Performer Location Encounter Start Date Encounter Closed Date Diagnosis/Indication Diagnosis SNOMED-CT Code Diagnosis ICD10 Code Diagnosis Note [id number] ZEUS MARCANO MD [facility] [address] [facility],[address] [place] [address] 09/19/2021 15:51:59 10/14/2021 14:38:10 Hydrocele of testis 83927947 N43.3 Benign pro static hyperplasia with outflow obstruction 642395370 N40.1 Exposure t o SARS-CoV-2 292492553 Z20.442 [id number] ZEUS MARCANO MD SURGERY SCHEDULE [address] [place] [address] 10/15/2021 13:21:59 10/15/2021 13:23:25 Hydrocele of testis 83516996 N43.3 [id number] ZEUS MARCANO MD [facility] [address] [place] [address],[place] [address] 11/21/2021 13:45:05 11/21/2021 15:47:16 Hydrocele of testis 38320047 N43.3 Health Concerns Section Related Observation LastModified by Organization Detai ls LastModified Time None Recorded Concern Status LastModified by Organization Details LastModified Time None Recorded Advance Directives Directive None Recorded Payers Insurance Date Sequence Insurance Name Policy Number Policy Meraz Covered Member ID Meraz Member ID Guarantor Name 11/25/2021 1 GLO-NE: GLO CODY OF NE [id number] Venancio Jones [id number] Venancio Jones Notes Date Note Type Note Provider Name and Address Organization Details Recorded Time 09/19/2021 text/html 76-year-old male in the office for my initial evaluation and for discussion of right scrotal swelling. Swelling has worsened over the last year. He denies significant pain other than pulling sensation and heaviness. He denies trauma to the area. He denies bothersome lower urinary symptoms. He has nocturia once nightly. He takes doxazosin daily. ZESU MARCANO MD [address] [place] [address], [address], [facility] 09/28/2021 10:07:16 11/21/2021 text/html 76-year-old male in the office for follow-up evaluation following right hydrocelectomy. He denies bothersome symptoms. He denies significant swelling or pain. ZEUS MARCANO MD [address] [place] [address], [address], [facility] 11/24/2021 14:47:26
== END ==
LOC: SL 13:07
PROVIDERS: PCP Family Medicine; Visit Provider Internal Medicine Pulmonary Disease
DX: R06.02 Shortness of breath (principal)
CPT/HCPCS: 94762

== ENCOUNTER 2025-03-22 10:16 | Outpatient (CLI) | payer MEDICARE, SELFPAY ==
--- OUTSIDE RECORDS SUMMARY | 2025-01-26 11:50 | XMS_ITS | Continuity of Care Document ---
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 It does not include entries that were removed or entered in error. Problem Status Onset Date Problem Type Date of Resolution Comments Source Atrial fibrillation Active 01/27/20 16 Condition Jul 31, 2016 Entered By: JOAQUINA MCDOWELL Comment: found on routine exam [place] [facility] CAD - Coronary artery disease (SNOMED CT 67915424) Active Condition [place] [facility] Diabetes mellitus (SNOMED CT 94114282) Active Condition [place] Gastroesophageal reflux disease Active Condition [place] [facility] HTN - Hypertension (SNOMED CT 17267259) Active Condition [place] Hyperlipidemia (SNOMED CT 04092308) Active Condition [place] 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 Condition [place] [place] [facility] Long-term current use of anticoagulant Active Condition [place] [facility] Malignant neoplasm of thyroid gland (ICD-9-CM 193.) [facility] Unspecified disorder of prostate (ICD-9-CM 602.9) Active Condition [place] [facility] Blood in Stool (ICD-9-CM 578.1) Inactive Condition 08/13/2018 [place] [facility] Onychogryposis Inactive Condition 08/13/2018 [place] [facility] Onychomycosis Inactive Condition 08/13/2018 [place] [facility] Social and personal history finding Inactive Condition 08/13/2018 Nov 26, 2015 Entered By: JOAQUINA MCDOWELL Comment: 2012, no tobacco no etohJul 31, 2016 Entered By: JEREMIAS,JOAQUINA H R Comment: enjoys golf plays mult times per week [place] [facility] Tinea Unguium * (ICD-9-CM 110.1) Inactive Condition 08/13/2018 [place] Medications Combined list of outpatient medications from Department of Defense and Veterans Affairs facilities.Medications provided include 1) outpatient medications from the last 15 months, and 2) patient-reported medications. Medication Details Route Status Patient Instructions Prescription Expires Prescription Number Last Dispense Date Ordering Provider Order Date Order Qty Source ASPIRIN 81MG TAB,EC TAKE ONE TABLET BY MOUTH DAILY ORAL ACTIVE JEAN MORELOS 2017 [place] [facility] ATORVASTATI N CA 40MG TAB TAKE ONE-HALF TABLET BY MOUTH DAILY ORAL ACTIVE Orlando HENNING S 2014 [place] [facility] FUROSEMIDE 20MG TAB TAKE ONE TABLET BY MOUTH DAILY ORAL ACTIVE ROGE MCDOWELL EPH R 2015 [place] [facility] GLIPIZIDE 10MG TAB,SA TAKE TWO TABLETS BY MOUTH EVERY EVENING ORAL ACTIVE JEAN MORELOS 2017 [place] [facility] HYDRALAZINE HCL 50MG TAB TAKE TWO TABLETS BY MOUTH TWICE A DAY ORAL ACTIVE ROGE MCDOWELL EPH R 2015 [place] [facility] INSULIN GLARGINE (TOUJEO-PAULINO OSTAR PEN) INJ INJECT 35 UNITS UNDER THE SKIN DAILY SUBCUT ANEOUS ACTIVE JEAN MORELOS 2017 [place] [facility] LISINOPRIL 40MG TAB TAKE ONE TABLET BY MOUTH DAILY ORAL ACTIVE Orlando HENNINGA S 2014 [place] METFORMIN HCL 850MG TAB TAKE ONE TABLET BY MOUTH DAILY ORAL ACTIVE Orlando HENNING S 2014 [place] METOPROLOL SUCCINATE 100MG TAB,SA TAKE ONE-HALF TABLET BY MOUTH TWICE A DAY ORAL ACTIVE ROGE MCDOWELL EPH R 2015 [place] [facility] PIOGLITAZON E HCL 30MG TAB TAKE ONE TABLET BY MOUTH DAILY ORAL ACTIVE Orlando HENNING S 2014 [place] RANITIDINE HCL 300MG TAB TAKE ONE TABLET BY MOUTH TWICE A DAY ORAL ACTIVE Orlando HENNING S 2014 [place] RIVAROXABAN 20MG TAB TAKE ONE TABLET BY MOUTH EVERY EVENING ORAL ACTIVE ROGE MCDOWELL R 2015 [place] [facility] Immunizations Combined list of available immunizations from the Department of Defense and Veterans Affairs facilities. 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 INFLUENZA A & B (HISTORICAL) 2015 88 complet ed [place] [facility] PNEUMOCOCCAL CONJUGATE PCV 13 [address] [facility] INFLUENZA A & B (HISTORICAL) 2014 88 complet ed [place] [facility] PNEUMOCOCCAL POLYSACCHARID E [id number] [address] [facility] INFLUENZA A & B (HISTORICAL) [address] [facility] INFLUENZA A & B (HISTORICAL) 2003 NONE 88 complet ed MEETS CRITERIA - DIABETIC/ CAD [place] [facility] TD(ADULT) UNSPECIFIED FORMULATION 2003 NONE 139 complet ed Completed Series, LOT #[id number]; EXP. 07/03 [place] INFLUENZA A & B (HISTORICAL) 2003 88 complet ed no reaction [place] [facility] FLU,3 YRS (HISTORICAL) 2002 ROBERTO CHAHAL 88 complet ed [place] PNEUMOCOCCAL, UNSPECIFIED FORMULATION 2002 109 complet ed no reaction [place] [facility] INFLUENZA, UNSPECIFIED FORMULATION 2002 88 complet ed [place] [facility] Encounters Combined list of: 1) Encounters from Department of Veterans Affairs facilities going backup to the last 18 months, not all [place] inpatient encounters are included; 2) Encounters from the Department of Defense facilities going backup to 280 months. Location Location Details Encounter Type Encounter Number Reason For Visit Attending Provider ADM Date DC Date Status Disposition Source [facility] Outpatient Encounter [id number] 07/22 [place] Outpatient Encounter [id number] 01/26 [place] [facility] Outpatient Encounter [id number] 01/26 [place] [facility] Social History Combined list of available smoking, tobacco, and other social history from Department of Defense and Veterans Affairs facilities. Social History Type Response Date Comment [facility] e Tobacco smoking status [facility] NEVER USED 08/10/2018 [facility] History of tobacco use V9 LIFETIME NON-USER OF TOBACCO 07/31/2016 [facility] History of tobacco use V9 QUIT TOBACCO >7 YEARS AGO 05/24/2015 [facility] History of tobacco use HF V9 CURRENT NON-SMOKER 03/24/2005 10yrs [facility] History of tobacco use HF V9 CURRENT NON-SMOKER 03/24/20031993 [facility]
[2025-03-22 10:43] LABS: Basophils # 0.1 K/mm3 (0-0.2); Basophils % 0.6 % (0.1-2.0); Eosinophils # 0.3 Kmm3 (0.0-0.4); Eosinophils % 3.3 % (0.1-12.0); Immature Granulocytes # 0.04 10^3uL; Immature Granulocytes % 0.5 %; Lymphocytes # 1.3 K/mm3 (0.7-4.5); Lymphocytes % 16.1 % (10-50); Mean Corpuscular HGB Conc 32.6 g/dL (31.8-35.4); Mean Corpuscular Hemoglobin 29.7 pg (27.0-31.2); Mean Corpuscular Volume 91.1 fl (80-94); Mean Platelet Volume 11.8 fl (7.4-10.4); Monocytes # 0.8 K/mm3 (0.1-1.0); Monocytes % 9.8 % (1.7-9.3); Neutrophils # 5.7 K/mm3 (1.8-7.8); Neutrophils % 69.7 % (37.0-80.0); Nucleated Red Blood Cells # 0 10^3/uL; Nucleated Red Blood Cells % 0 %; Platelet Count 190 K/mm3 (142-424); Red Blood Count 4.72 M/mm3 (4.60-6.20); Red Cell Distribution Width 14.8 % (11.5-17.5); Red Cell Distribution Width-SD 49.7 fL; White Blood Count 8.2 K/mm3 (4.8-10.8)
[2025-03-22 11:15] LABS: Albumin Level 3.8 g/dl (3.5-5.0); Chloride 103 mmol/L (98-107); Potassium 4.3 mmoL/L (3.5-5.1); Sodium 138 mmol/L (136-145)
[2025-03-22 11:18] LABS: Alanine Aminotransferase 82 U/L (12-78); Alkaline Phosphatase 185 U/L (38-126); Anion Gap 18.3 mEq/L (5-15); Aspartate Amino Transferase 51 U/L (17-59); Bilirubin,Direct 0.4 mg/dl (0.0-0.4); Bilirubin,Indirect 0.4 mg/dL (0.0-0.9); Bilirubin,Total 0.8 mg/dl (0.2-1.3); Bilirubin,Unconjugated 0.4 mg/dL (0.0-1.1); Blood Urea Nitrogen 48 mg/dl (9-20); Calcium 9.3 mg/dl (8.4-10.2); Carbon Dioxide 21 mmol/L (22.0-30.0); Chol/HDL Ratio 2.9 (1-3.5); Cholesterol 119 mg/dl (140-200); Estimated Glomerular Filt Rate 31 ml/min (>60); GFR (African American) 37 ML/MIN (>60); Glucose 259 mg/dl (74-100); HDL Cholesterol 41 mg/dl (40-60); Triglycerides 121 mg/dl (30-150); VLDL Cholesterol 24 mg/dL (0-40)
[2025-03-22 11:29] LABS: Direct LDL Cholesterol 40.79 mg/dL (100-129)
[2025-03-22 11:35] LABS: Free T4 (Free Thyroxine) 1.28 ng/dl (0.78-2.19)
[2025-03-22 11:49] LABS: Thyroid Stimulating Hormone 1.86 uIU/mL (0.465-4.68)
== END 2025-03-22 23:59 | disposition home or self-care (01) ==
LOC: LAB 10:17
PROVIDERS: PCP Family Medicine; Visit Provider Nurse Practitioner
DX: I50.30 Unspecified diastolic (congestive) heart failure (principal); E78.5 Hyperlipidemia, unspecified; E11.9 Type 2 diabetes mellitus without complications; I25.10 Atherosclerotic heart disease of native coronary artery without angina pectoris
CPT/HCPCS: 36415; 80048; 80061; 80076; 84439; 84443; 85025

== ENCOUNTER 2025-04-13 12:54 | Outpatient (CLI) | payer MEDICARE, SELFPAY ==
--- OUTSIDE RECORDS SUMMARY | 2025-01-26 11:50 | XMS_ITS | Continuity of Care Document ---
Author Name [facility] Organization [facility] Care Team Providers Care Hip Hop Performers Name Role Phone [facility] Unavailable Unavailable Problems Combined list of problems from Department of Defense and Veterans Affairs facilities. It does not include entries that were removed or entered in error. Problem Status Onset Date Problem Type Date of Resolution Comments Source Atrial fibrillation Active 01/27/20 16 Condition Jul 31, 2016 Entered By: JOAQUINA MCDOWELL Comment: found on routine exam [place] [facility] CAD - Coronary artery disease (SNOMED CT 04222812) Active Condition [place] [facility] Diabetes mellitus (SNOMED CT 24778492) Active Condition [place] [facility] Gastroesophageal reflux disease Active Condition [place]- [facility] HTN - Hypertension (SNOMED CT 09560305) Active Condition [place] [facility] Hyperlipidemia (SNOMED CT 58471467) Active Condition [place] 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 Long-term current use of anticoagulant Active Condition [place] [facility] Malignant neoplasm of thyroid gland (ICD-9-CM 193.) [facility] Unspecified disorder of prostate (ICD-9-CM 602.9) Active Condition [place] [facility] Blood in Stool (ICD-9-CM 578.1) Inactive Condition 08/13/2018 [place] [facility] Onychogryposis Inactive Condition 08/13/[address] [facility] Onychomycosis Inactive Condition 08/13/[address] [place] [facility] Social and personal history finding Inactive Condition 08/13/2018 Nov 26, 2015 Entered By: JOAQUINA MCDOWELL Comment: 2012, no tobacco no etohJul 31, 2016 Entered By: JEREMIAS,JOAQUINA H R Comment: enjoys golf plays mult times per week [facility] Tinea Unguium * (ICD-9-CM 110.1) Inactive Condition 08/13/2018 [place] N[facility] Medications Combined list of outpatient medications from [...] ORAL ACTIVE JEAN MORELOS [address] [place] [facility] ATORVASTATI N CA 40MG TAB TAKE ONE-HALF TABLET BY MOUTH DAILY ORAL ACTIVE [place] HENNING S 2014 [place] [facility] FUROSEMIDE 20MG TAB TAKE ONE TABLET BY MOUTH DAILY ORAL ACTIVE ROGE MCDOWELL EPH R 2015 [place] [facility] GLIPIZIDE 10MG TAB,SA TAKE TWO TABLETS BY MOUTH EVERY EVENING ORAL ACTIVE JEAN MORELOS 2017 [place] [facility] HYDRALAZINE HCL 50MG TAB TAKE TWO TABLETS BY MOUTH TWICE A DAY ORAL ACTIVE ROGE MCDOWELL EPH R [address] [place] [facility] INSULIN GLARGINE (TOUJEO-PAULINO OSTAR PEN) INJ INJECT 35 UNITS UNDER THE SKIN DAILY SUBCUT ANEOUS ACTIVE JEAN MORELOS [address] [place] [facility] LISINOPRIL 40MG TAB TAKE ONE TABLET BY MOUTH DAILY ORAL ACTIVE [place] HENNINGA S 2014 [place] [facility] METFORMIN HCL 850MG TAB TAKE ONE TABLET BY MOUTH DAILY ORAL ACTIVE [place] HENNING S 2014 [place] METOPROLOL SUCCINATE 100MG TAB,SA TAKE ONE-HALF TABLET BY MOUTH TWICE A DAY ORAL ACTIVE ROGE MCDOWELL EPH R [address] [place] [facility] PIOGLITAZON E HCL 30MG TAB TAKE ONE TABLET BY MOUTH DAILY ORAL ACTIVE [place] HENNING S 2014 [place] [facility] RANITIDINE HCL 300MG TAB TAKE ONE TABLET BY MOUTH TWICE A DAY ORAL ACTIVE [place] HENNING S 2014 [place] RIVAROXABAN 20MG TAB TAKE ONE TABLET BY MOUTH EVERY EVENING ORAL ACTIVE ROGE MCDOWELL R [address] [place] [facility] Immunizations Combined list of available immunizations from the Department of Defense and Veterans Affairs facilities. Immunization Series Date Given Administered By Site Reaction Lot Number CVX Code Drug Laborer Concrete Paving Status Comments Source INFLUENZA, SEASONAL, INJECTABLE 2017 141 complet ed [place] [facility] INFLUENZA A & B (HISTORICAL) 2016 88 complet ed [facility] INFLUENZA A & B (HISTORICAL) 2015 88 complet ed [place] [facility] PNEUMOCOCCAL CONJUGATE PCV 13 2015 133 complet ed verbal [facility] INFLUENZA A & B (HISTORICAL) 2014 88 complet ed [place] [facility] PNEUMOCOCCAL POLYSACCHARID E PPV23 2014 33 complet ed [facility] INFLUENZA A & B (HISTORICAL) 2013 88 complet ed [facility] INFLUENZA A & B (HISTORICAL) 2003 NONE 88 complet ed MEETS CRITERIA - DIABETIC/ CAD [place] [facility] TD(ADULT) UNSPECIFIED FORMULATION 2003 NONE 139 complet ed Completed Series, LOT #[id number]; EXP. 07/03 [place] [facility] INFLUENZA A & B (HISTORICAL) 2003 88 complet ed no reaction [place] [facility] FLU,3 YRS (HISTORICAL) 2002 ROBERTO CHAHAL 88 complet ed [place] [facility] PNEUMOCOCCAL, UNSPECIFIED FORMULATION 2002 109 complet ed no reaction [place] [facility] INFLUENZA, UNSPECIFIED FORMULATION 2002 88 complet ed [place] [facility] Encounters Combined list of: 1) Encounters from Department of Veterans Affairs facilities going backup to the last 18 months, not all [place] inpatient encounters are included; 2) Encounters from the Department of Defense facilities going backup to 280 months. Location Location Details Encounter Type Encounter Number Reason For Visit Attending Provider ADM Date DC Date Status Disposition Source [facility] Outpatient Encounter [id number] 07/22 [place] Outpatient Encounter [id number] 01/[address] [place] [facility] Outpatient Encounter [id number] 01/[address] [place] [facility] Social History Combined list of available smoking, tobacco, and other social history from Department of Defense and Veterans Affairs facilities. Social History Type Response Date Comment [facility] e Tobacco smoking status [facility] NEVER USED 08/10/2018 [facility] History of tobacco use V9 LIFETIME NON-USER OF TOBACCO 07/31/2016 [facility] History of tobacco use V9 QUIT TOBACCO >7 YEARS AGO 05/24/2015 [facility] History of tobacco use HF V9 CURRENT NON-SMOKER 03/24/2005 10yrs [facility] History of tobacco use HF V9 CURRENT NON-SMOKER 03/24/20031993 [facility]
--- OUTSIDE RECORDS SUMMARY | 2025-04-13 12:57 | XMS_ITS | Data Portability ---
Author Organization [facility] Dixon GLYNN Gurrola [facility] Address [address] [place] [address] Care Team Providers Care Systems Specialist Name Role Phone SAUD SANGEETHA Primary Care Provider Assessment Encounter Date Assessment Date Assessment LastModified by Organization Details LastModified Time 09/19/2021 09/19/2021 We reviewed the diagnosis of hydrocele and options of management. He wishes to proceed with hydrocelectomy. We reviewed the risks and benefits of procedure. [email or web address] Not available 09/19/2021 17:02:12 10/15/2021 10/15/2021 SURGERY [...] home with instructions for outpatient follow up. [email or web address] Not available 10/15/2021 15:57:36 11/21/2021 11/21/2021 Is doing well following surgery. Continue scrotal support. Not available 11/24/2021 14:46:55 Plan of Treatment Reminders Order Date Submit Date Provider Last Modified By Organization Details Last Modified Time Details Appointments None recorded. 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 Procedures None recorded. Surgeries tunica vaginalis, excision of hydrocele, unilateral (SURG) 2020 022 [email or web address] [facility] Professional Charges, [address] [facility] [facility], [facility] [address], [place], [address], 16:27:11 Imaging None recorded. Medication Orders hydrocodone 7.5 mg-acetamin ophen 325 mg tablet 2021 022 [email or web address] [id number], [address] [place], [address], 19:14:21 Patient TargetsNo targets recorded. Patient Instructions Encounter Date Encounter Id Patient Instructions Last Modified By Organization Details Last Modified Time 11/21/2021 [id number] learning about healthy weight [email or web address] Not available 11/24/2021 14:46:56 Reason for Referral None Reported. Results Created Date Observation Date Name Description Value Unit Range Abnormal Flag Note LastModifiedBy Organization Detail LastModifiedTime 09/19/20 21 09/19/2021 urina lysis panel , auto Unknown Analyte Clean Catch Not Available [facility] Extended Services With [address], [place], [address], 09/19/2021 17:41:39 09/19/2009/19/2021 urina lysis panel , auto Unknown Analyte Yellow Not Available [facility] Extended Services With [address], [place], [address], 09/19/2021 17:41:39 09/19/20 21 09/19/2021 urina lysis panel , auto Unknown Analyte Clear Not Available [facility] Extended Services With [address], [place], [address], 09/19/2021 17:41:39 09/19/20 21 09/19/2021 urina lysis panel , auto Unknown Analyte 1.010 Not Available [facility] Extended Services With [address], [place], [address], 09/19/2021 17:41:39 09/19/20 21 09/19/2021 urina lysis panel , auto Unknown Analyte 1.003- 1.035 Not Available [facility] Extended Services With [address] [place], [address], 09/19/2021 17:41:39 09/19/20 21 09/19/2021 urina lysis panel , auto Unknown Analyte 5.0 Not Available [facility] Extended Services With [address] [place], [address], 09/19/2021 17:41:39 09/19/20 21 09/19/2021 urina lysis panel , auto Unknown Analyte 5.0-8. 0 Not Available [facility] Extended Services With [address], [place], [address], 09/19/2021 17:41:39 09/19/20 21 09/19/2021 urina lysis panel , auto Unknown Analyte Negati ve Not Available [facility] Extended Services With [address], [place], [address], 09/19/2021 17:41:39 09/19/2009/19/2021 urina lysis panel , auto Unknown Analyte Negati ve Not Available [facility] Extended Services With [address], [place], [address], 09/19/2021 17:41:39 09/19/20 21 09/19/2021 urina lysis panel , auto Unknown Analyte Negati ve Not Available [facility] Extended Services With [address], [place], [address], 09/19/2021 17:41:39 09/19/20 21 09/19/2021 urina lysis panel , auto Unknown Analyte Negati ve Not Available [facility] Extended Services With [address], [place], [address], 09/19/2021 17:41:39 09/19/20 21 09/19/2021 urina lysis panel , auto Unknown Analyte Negati ve Not Available [facility] Extended Services With [address], [place], [address], 09/19/2021 17:41:39 09/19/20 21 09/19/2021 urina lysis panel , auto Unknown Analyte Negati ve Not Available [facility] Extended Services With [address], [place], [address], 09/19/2021 17:41:39 09/19/20 21 09/19/2021 urina lysis panel , auto Unknown Analyte Normal Not Available [facility] Extended Services With [address], [place], [address], 09/19/2021 17:41:39 09/19/2009/19/2021 urina lysis panel , auto Unknown Analyte Normal Not Available [facility] Extended Services With [address], [place], [address], 09/19/2021 17:41:39 09/19/20 21 09/19/2021 urina lysis panel , auto Unknown Analyte Negati ve Not Available [facility] Extended Services With [address], [place], [address], 09/19/2021 17:41:39 09/19/20 21 09/19/2021 urina lysis panel , auto Unknown Analyte Negati ve Not Available [facility] Extended Services With [address] [place], [address], 09/19/2021 17:41:39 09/19/20 21 09/19/2021 urina lysis panel , auto Unknown Analyte Normal Not Available [facility] Extended Services With [address] [place], [address], 09/19/2021 17:41:39 09/19/20 21 09/19/2021 urina lysis panel , auto Unknown Analyte Normal 1 mg/dl Not Available [facility] Extended Services With [address] [place], [address], 09/19/2021 17:41:39 09/19/20 21 09/19/2021 urina lysis panel , auto Unknown Analyte Negati ve Not Available [facility] [place] Extended Services With [address], [place], [address], 09/19/2021 17:41:39 09/19/20 21 09/19/2021 urina lysis panel , auto Unknown Analyte Negati ve Not Available [facility] Extended Services With [address], [place], [address], 09/19/2021 17:41:39 09/19/20 21 09/19/2021 urina lysis panel , auto Unknown Analyte Negati ve Not Available [facility] Extended Services With [address], [place], [address], 09/19/2021 17:41:39 09/19/20 21 09/19/2021 urina lysis panel , auto Unknown Analyte Negati ve Not Available [facility] Extended Services With [address], [place], [address], 09/19/2021 17:41:39 10/11/19 22 10/14/2021 SARS- COV-1 9 RNA, PCR sars cov-19 result NEGATI VE negati ve normal Not Available [facility] [address] [place], [address], 10/14/2021 09:21:38 10/15/19 22 10/15/2021 SURGI SERGIO surgical SEE BELOW Depar tment of Patho logy Surgi sergio Patho logy Repor t NAME: KAYLA JONES Noel PATH. :SS-2 [id number] Copy to: Diagn osis: [place] yuliet sac: Vascu lar fibro muscu lar [...] 13:06 Page 1 of 1 Not Available [facility] [address] [place] [address], [address], 10/17/2021 13:07:32 11/21/19 22 11/21/2021 urina lysis panel , auto Unknown Analyte Clean Catch Not Available [facility] [place] Extended Services With [address], [place], [address], 11/21/2021 19:18:07 11/21/19 22 11/21/2021 urina lysis panel , auto Unknown Analyte Yellow Not Available [facility] [place] Extended Services With [address], [place], [address], 11/21/2021 19:18:07 11/21/19 22 11/21/2021 urina lysis panel , auto Unknown Analyte Clear Not Available [facility] [place] Extended Services With [address], [place], [address], 11/21/2021 19:18:07 11/21/19 22 11/21/2021 urina lysis panel , auto Unknown Analyte 1.020 Not Available [facility] Extended Services With [address], [place], [address], 11/21/2021 19:18:07 11/21/19 22 11/21/2021 urina lysis panel , auto Unknown Analyte 1.003- 1.035 Not Available [facility] Extended Services With [address] [place], [address], 11/21/2021 19:18:07 11/21/19 22 11/21/2021 urina lysis panel , auto Unknown Analyte 5.0 Not Available [facility] Extended Services With [address] [place], [address], 11/21/2021 19:18:07 11/21/19 22 11/21/2021 urina lysis panel , auto Unknown Analyte 5.0-8. 0 Not Available [facility] Extended Services With [address] [place], [address], 11/21/2021 19:18:07 11/21/19 22 11/21/2021 urina lysis panel , auto Unknown Analyte Negati ve Not Available [facility] Extended Services With [address] [place], [address], 11/21/2021 19:18:07 11/21/19 22 11/21/2021 urina lysis panel , auto Unknown Analyte Negati ve Not Available [facility] Extended Services With [address] [place], [address], 11/21/2021 19:18:07 11/21/19 22 11/21/2021 urina lysis panel , auto Unknown Analyte Negati ve Not Available [facility] Extended Services With [address] [place], [address], 11/21/2021 19:18:07 11/21/19 22 11/21/2021 urina lysis panel , auto Unknown Analyte Negati ve Not Available [facility] Extended Services With [address] [place], [address], 11/21/2021 19:18:07 11/21/19 22 11/21/2021 urina lysis panel , auto Unknown Analyte Negati ve Not Available [facility] Extended Services With [address] [place], [address], 11/21/2021 19:18:07 11/21/19 22 11/21/2021 urina lysis panel , auto Unknown Analyte Negati ve Not Available [facility] Extended Services With [address] [place], [address], 11/21/2021 19:18:07 11/21/19 22 11/21/2021 urina lysis panel , auto Unknown Analyte Normal Not Available [facility] Extended Services With [address] [place], [address], 11/21/2021 19:18:07 11/21/19 22 11/21/2021 urina lysis panel , auto Unknown Analyte Normal Not Available [facility] Extended Services With [address] [place], [address], 11/21/2021 19:18:07 11/21/19 22 11/21/2021 urina lysis panel , auto Unknown Analyte Negati ve Not Available [facility] Extended Services With [address] [place], [address], 11/21/2021 19:18:07 11/21/19 22 11/21/2021 urina lysis panel , auto Unknown Analyte Negati ve Not Available [facility] Extended Services With [address] [place], [address], 11/21/2021 19:18:07 11/21/19 22 11/21/2021 urina lysis panel , auto Unknown Analyte Normal Not Available [facility] Extended Services With [address] [place], [address], 11/21/2021 19:18:07 11/21/19 22 11/21/2021 urina lysis panel , auto Unknown Analyte Normal 1 mg/dl Not Available [facility] Extended Services With [address] [place], [address], 11/21/2021 19:18:07 11/21/19 22 11/21/2021 urina lysis panel , auto Unknown Analyte Negati ve Not Available [facility] Extended Services With [address] [place], [address], 11/21/2021 19:18:07 11/21/19 22 11/21/2021 urina lysis panel , auto Unknown Analyte Negati ve Not Available [facility] Extended Services With [address] [place], [address], 11/21/2021 19:18:07 11/21/19 22 11/21/2021 urina lysis panel , auto Unknown Analyte Negati ve Not Available [facility] Extended Services With [address] [place], [address], 11/21/2021 19:18:07 11/21/19 22 11/21/2021 urina lysis panel , auto Unknown Analyte Negati ve Not Available [facility] Extended Services With [address] [place], [address], 11/21/2021 19:18:07 Result Notes None recorded. Medical [...] Available Not Available No t Available Jazmine Grantar U-300 Insulin active Not Available Not Available Not Available B12 Active 1,000 mcg chewable tablet Take by oral route. active Not Available Not Available No t Available Vitals Date Recorded Body height Body mass index (BMI) Body weight Provider Name and Address Organization Details Last Updated DateTime 11/21/2021 177.8 cm 27.3 kg/m2 35374.55 g Yoav Vicente [facility] 11/21/2021 19:14:10 Date Recorded Body height Body mass index (BMI) Body weight Provider Name and Address Organization Details Last Updated DateTime 09/19/2021 177.8 cm 27.3 kg/m2 06842.55 g Mat Lenz [facility] 09/19/2021 17:40:04 Social History Question Answer Notes LastModified by Organizat ion Details LastModified Time Tobacco Smoking Status [facility] 17:40:28 What Was The Date Of [...] available 09/19 17:40:18 Medical History Condition Response False Teeth Y Heart Conditions Y Heart Attack (CT) Y Diabetes Y Heart Disease Y Hypertension Y Kidney Disease Y Past Encounters Encounter ID Performer Location Encounter Start Date Encounter Closed Date Diagnosis/Indication Diagnosis SNOMED-CT Code Diagnosis ICD10 Code Diagnosis Note [id number] ZEUS MARCANO MD [facility] [address] [address] 09/19/2021 15:51:59 10/14/2021 14:38:10 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 067309322 N40.1 Exposure t o SARS-CoV-2 121426390 Z20.041 [id number] ZEUS MARCANO MD SURGERY SCHEDULE [address] [place] [address] 10/15/2021 13:21:59 10/15/2021 13:23:25 Hydrocele of testis 37699521 N43.3 [id number] ZEUS MARCANO MD [facility] [address] [facility] [address] 11/21/2021 13:45:05 11/21/2021 15:47:16 Hydrocele of testis 48401504 N43.3 Health Concerns Section Related Observation LastModified by Organization Detai ls LastModified Time None Recorded Concern Status LastModified by Organization Details LastModified Time None Recorded Advance Directives Directive None Recorded Payers Insurance Date Sequence Insurance Name Policy Number Policy Meraz Covered Member ID Meraz Member ID Guarantor Name 11/25/2021 1 [place] [id number] Venancio Jones [id number] Venancio Jones Notes Date Note Type [...] nocturia once nightly. He takes doxazosin daily. ZEUS MARCANO MD [address] [place] [address], [address], [facility] 09/28/2021 10:07:16 11/21/2021 text/html 76-year-old male in the office for follow-up evaluation following right hydrocelectomy. He denies bothersome symptoms. He denies significant swelling or pain. ZEUS MARCANO MD [address] [place] [address], [address], [facility] 11/24/2021 14:47:26
[2025-04-13 13:40] VITALS: PULSE 71; PULSE 74
[2025-04-13] MEDS: ALBUTEROL 0.083% 2.5 MG/3 ML NEB IH (13:40)
== END 2025-04-13 23:59 | disposition home or self-care (01) ==
LOC: RT 12:54
PROVIDERS: PCP Family Medicine; Visit Provider Internal Medicine Pulmonary Disease
DX: J44.9 Chronic obstructive pulmonary disease, unspecified (principal); R94.2 Abnormal results of pulmonary function studies
CPT/HCPCS: 94060; 94618; 94640; 94726; 94729

== ENCOUNTER 2025-04-21 09:14 | Outpatient (CLI) | payer MEDICARE, SELFPAY ==
--- OUTSIDE RECORDS SUMMARY | 2025-01-26 11:50 | XMS_ITS | Continuity of Care Document ---
Author Name [facility] Organization [facility] Care Team Providers Care Clinic Nurse Name Role Phone [facility] Unavailable Unavailable Problems Combined list of problems from Department of Defense and Veterans Affairs facilities. It does not include entries that were removed or entered in error. Problem Status Onset Date Problem Type Date of Resolution Comments Source Atrial fibrillation Active 01/27/20 16 Condition Jul 31, 2016 Entered By: JOAQUINA MCDOWELL Comment: found on routine exam [place] [facility] CAD - Coronary artery disease (SNOMED CT [id number]) Active Condition [place] [facility] Diabetes mellitus (SNOMED CT 73246870) Active Condition [place] Gastroesophageal reflux disease Active Condition [place] HTN - Hypertension (SNOMED CT 70589192) Active Condition [place] Hyperlipidemia (SNOMED CT 44347904) Active Condition [place] 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 Condition [place] [facility] Long-term current use of anticoagulant Active Condition [place] [facility] Malignant neoplasm of thyroid gland (ICD-9-CM 193.) Active Condition [place] [facility] Unspecified disorder of prostate (ICD-9-CM 602.9) Active Condition [place] [facility] Blood in Stool (ICD-9-CM 578.1) Inactive Condition 08/13/2018 [place] [facility] Onychogryposis Inactive Condition 08/13/2018 [place] [facility] Onychomycosis Inactive Condition 08/13/2018 [place] [facility] Social and personal history finding Inactive Condition 08/13/2018 Nov 26, 2015 Entered By: JOAQUINA MCDOWELL Comment: 2012, no tobacco no etohJul 31, 2016 Entered By: JEREMIAS,JOAQUINA H R Comment: enjoys golf plays mult times per week [facility] Tinea Unguium * (ICD-9-CM 110.1) Inactive Condition 08/13/2018 [place] [facility] Medications Combined list of outpatient medications [...] ORAL ACTIVE JEAN MORELOS 2017 [place] [facility] ATORVASTATI N CA 40MG TAB TAKE ONE-HALF TABLET BY MOUTH DAILY ORAL ACTIVE [place] HENNING S 2014 [place] FUROSEMIDE 20MG TAB TAKE ONE TABLET BY MOUTH DAILY ORAL ACTIVE ROGE MCDOWELL EPH R 2015 [place] [facility] GLIPIZIDE 10MG TAB,SA TAKE TWO TABLETS BY MOUTH EVERY EVENING ORAL ACTIVE JEAN MORELOS 2017 [place] [facility] HYDRALAZINE HCL 50MG TAB TAKE TWO TABLETS BY MOUTH TWICE A DAY ORAL ACTIVE ROGE MCDOWELL EPH R 2015 [place] [facility] INSULIN GLARGINE (TOUJEO-PAULINO OSTAR PEN) INJ INJECT 35 UNITS UNDER THE SKIN DAILY SUBCUT ANEOUS ACTIVE JEAN MORELOS 2017 [place] [facility] LISINOPRIL 40MG TAB TAKE ONE TABLET BY MOUTH DAILY ORAL ACTIVE [place] HENNINGA S 2014 [place] METFORMIN HCL 850MG TAB TAKE ONE TABLET BY MOUTH DAILY ORAL ACTIVE [place] HENNING S 2014 [place] METOPROLOL SUCCINATE 100MG TAB,SA TAKE ONE-HALF TABLET BY MOUTH TWICE A DAY ORAL ACTIVE ROGE MCDOWELL EPH R 2015 [place] [facility] PIOGLITAZON E HCL 30MG TAB TAKE ONE TABLET BY MOUTH DAILY ORAL ACTIVE [place] HENNING S 2014 [place] RANITIDINE HCL 300MG TAB TAKE ONE TABLET BY MOUTH TWICE A DAY ORAL ACTIVE [place] HENNING S 2014 [place] RIVAROXABAN 20MG TAB TAKE ONE TABLET BY MOUTH EVERY EVENING ORAL ACTIVE ROGE MCDOWELL R 2015 [place] [facility] Immunizations Combined list of available immunizations from the Department of Defense and Veterans Affairs facilities. Immunization Series Date Given Administered By Site Reaction Lot Number CVX Code Drug Process Coordinator Status Comments Source INFLUENZA, SEASONAL, INJECTABLE 2017 141 complet ed [place] [facility] INFLUENZA A & B (HISTORICAL) 2016 88 complet ed [facility] INFLUENZA A & B (HISTORICAL) 2015 88 complet ed [place] [facility] PNEUMOCOCCAL CONJUGATE PCV 13 2015 133 complet ed verbal [facility] INFLUENZA A & B (HISTORICAL) 2014 88 complet ed [place] [facility] PNEUMOCOCCAL POLYSACCHARID E PPV23 2014 33 complet ed [facility] INFLUENZA A & B (HISTORICAL) 2013 88 complet ed [facility] INFLUENZA A & B (HISTORICAL) 2003 NONE 88 complet ed MEETS CRITERIA - DIABETIC/ CAD [place] TD(ADULT) UNSPECIFIED FORMULATION 2003 NONE 139 complet ed Completed Series, LOT #[id number]; EXP. 07/03 [place] INFLUENZA A & B (HISTORICAL) 2003 88 complet ed no reaction [place] [facility] FLU,3 YRS (HISTORICAL) 2002 ROBERTO CHAHAL 88 complet ed [place] PNEUMOCOCCAL, UNSPECIFIED FORMULATION 2002 109 complet ed no reaction [place] [facility] INFLUENZA, UNSPECIFIED FORMULATION 2002 88 complet ed [place] [facility] Encounters Combined list of: 1) Encounters from Department of Veterans Affairs facilities going backup to the last 18 months, not all [place] inpatient encounters are included; 2) Encounters from the Department of Defense facilities going backup to 280 months. Location Location Details Encounter Type Encounter Number Reason For Visit Attending Provider ADM Date DC Date Status Disposition Source [facility] Outpatient Encounter [id number] 07/22 [place] Outpatient Encounter [id number] 01/26 [place] [facility] Outpatient Encounter [id number] 01/26 [place] [facility] Social History Combined list of available smoking, tobacco, and other social history from Department of Defense and Veterans Affairs facilities. Social History Type Response Date Comment [facility] e Tobacco smoking status [facility]-TOBACCO NEVER USED 08/10/2018 [facility] History of tobacco use V9 LIFETIME NON-USER OF TOBACCO 07/31/2016 [facility] History of tobacco use V9 QUIT TOBACCO >7 YEARS AGO 05/24/2015 [facility] History of tobacco use HF V9 CURRENT NON-SMOKER 03/24/2005 10yrs [facility] History of tobacco use HF V9 CURRENT NON-SMOKER 03/24/20031993 [facility]
--- NOTE | 2025-04-21 | XR_ITS ---
FINAL REPORT CLINICAL HISTORY: Decreased DLCO, SOB COMPARISON: None FINDINGS: CHEST 2 VIEWS No acute pulmonary opacities present. There is no evidence of effusion or pneumothorax. There is underlying emphysema. 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 Otherwise, mediastinum is unremarkable. The heart is normal in size. IMPRESSION: Unremarkable chest, status post CABG. Reviewed, Interpreted and Dictated by Dalila Montano MD Transcribed by Cherie Angulo Authenticated and [facility]
--- OUTSIDE RECORDS SUMMARY | 2025-04-21 09:17 | XMS_ITS | Data Portability ---
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 He wishes to proceed with hydrocelectomy. We reviewed the risks and benefits of procedure. [email or web address] Not available 09/19/2021 17:02:12 10/15/2021 10/15/2021 SURGERY [...] home with instructions for outpatient follow up. [email or web address] Not available 10/15/2021 15:57:36 11/21/2021 11/21/2021 Is doing well following surgery. Continue scrotal support. [email or web address] Not available 11/24/2021 14:46:55 Plan of Treatment Reminders Order Date Submit Date Provider Last Modified By Organization Details Last Modified Time Details Appointments None recorded. 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 Procedures None recorded. Surgeries tunica vaginalis, excision of hydrocele, unilateral (SURG) 2020 022 [email or web address] [facility] Professional Charges, [address] [facility], [facility] [address], [place], [address], 16:27:11 Imaging None recorded. Medication Orders hydrocodone 7.5 mg-acetamin ophen 325 mg tablet 2021 022 [email or web address] [id number], [address] [place], [address], 19:14:21 Patient TargetsNo targets recorded. Patient Instructions Encounter Date Encounter Id Patient Instructions Last Modified By Organization Details Last Modified Time 11/21/2021 [id number] learning about healthy weight [email or web address] Not available 11/24/2021 14:46:56 Reason for Referral None Reported. Results Created Date Observation Date Name Description Value Unit Range Abnormal Flag Note LastModifiedBy Organization Detail LastModifiedTime 09/19/20 21 09/19/2021 urina lysis panel , auto Unknown Analyte Clean Catch Not Available [facility] Extended Services With [address], [place], [address], 09/19/2021 17:41:39 09/19/2009/19/2021 urina lysis panel , auto Unknown Analyte Yellow Not Available [facility] Extended Services With [address], [place], [address], 09/19/2021 17:41:39 09/19/20 21 09/19/2021 urina lysis panel , auto Unknown Analyte Clear Not Available [facility] Extended Services With [address], [place], [address], 09/19/2021 17:41:39 09/19/20 21 09/19/2021 urina lysis panel , auto Unknown Analyte 1.010 Not Available [facility] Extended Services With [address], [place], [address], 09/19/2021 17:41:39 09/19/20 21 09/19/2021 urina lysis panel , auto Unknown Analyte 1.003- 1.035 Not Available [facility] Extended Services With [address] [place], [address], 09/19/2021 17:41:39 09/19/20 21 09/19/2021 urina lysis panel , auto Unknown Analyte 5.0 Not Available [facility] Extended Services With [address] [place], [address], 09/19/2021 17:41:39 09/19/20 21 09/19/2021 urina lysis panel , auto Unknown Analyte 5.0-8. 0 Not Available [facility] Extended Services With [address], [place], [address], 09/19/2021 17:41:39 09/19/20 21 09/19/2021 urina lysis panel , auto Unknown Analyte Negati ve Not Available [facility] Extended Services With [address], [place], [address], 09/19/2021 17:41:39 09/19/2009/19/2021 urina lysis panel , auto Unknown Analyte Negati ve Not Available [facility] Extended Services With [address], [place], [address], 09/19/2021 17:41:39 09/19/20 21 09/19/2021 urina lysis panel , auto Unknown Analyte Negati ve Not Available [facility] Extended Services With [address], [place], [address], 09/19/2021 17:41:39 09/19/20 21 09/19/2021 urina lysis panel , auto Unknown Analyte Negati ve Not Available [facility] Extended Services With [address], [place], [address], 09/19/2021 17:41:39 09/19/20 21 09/19/2021 urina lysis panel , auto Unknown Analyte Negati ve Not Available [facility] Extended Services With [address], [place], [address], 09/19/2021 17:41:39 09/19/20 21 09/19/2021 urina lysis panel , auto Unknown Analyte Negati ve Not Available [facility] Extended Services With [address], [place], [address], 09/19/2021 17:41:39 09/19/20 21 09/19/2021 urina lysis panel , auto Unknown Analyte Normal Not Available [facility] Extended Services With [address], [place], [address], 09/19/2021 17:41:39 09/19/2009/19/2021 urina lysis panel , auto Unknown Analyte Normal Not Available [facility] Extended Services With [address], [place], [address], 09/19/2021 17:41:39 09/19/20 21 09/19/2021 urina lysis panel , auto Unknown Analyte Negati ve Not Available [facility] Extended Services With [address], [place], [address], 09/19/2021 17:41:39 09/19/20 21 09/19/2021 urina lysis panel , auto Unknown Analyte Negati ve Not Available [facility] Extended Services With [address] [place], [address], 09/19/2021 17:41:39 09/19/20 21 09/19/2021 urina lysis panel , auto Unknown Analyte Normal Not Available [facility] Extended Services With [address] [place], [address], 09/19/2021 17:41:39 09/19/20 21 09/19/2021 urina lysis panel , auto Unknown Analyte Normal 1 mg/dl Not Available [facility] Extended Services With [address] [place], [address], 09/19/2021 17:41:39 09/19/20 21 09/19/2021 urina lysis panel , auto Unknown Analyte Negati ve Not Available [facility] Extended Services With [address], [place], [address], 09/19/2021 17:41:39 09/19/20 21 09/19/2021 urina lysis panel , auto Unknown Analyte Negati ve Not Available [facility] Extended Services With [address], [place], [address], 09/19/2021 17:41:39 09/19/20 21 09/19/2021 urina lysis panel , auto Unknown Analyte Negati ve Not Available [facility] Extended Services With [address], [place], [address], 09/19/2021 17:41:39 09/19/20 21 09/19/2021 urina lysis panel , auto Unknown Analyte Negati ve Not Available [facility] Extended Services With [address], [place], [address], 09/19/2021 17:41:39 10/11/19 22 10/14/2021 SARS- COV-1 9 RNA, PCR sars cov-19 result NEGATI VE negati ve normal Not Available [facility] [address] [place], [address], 10/14/2021 09:21:38 10/15/19 22 10/15/2021 SURGI SERGIO surgical SEE BELOW Depar tment of Patho logy Surgi sergio Patho logy Repor t NAME: KAYLA JONES Noel PATH. :[id number] Copy to: Diagn osis: [place] yuliet sac: Vascu lar fibro muscu lar [...] 13:06 Page 1 of 1 Not Available [facility] [address] [place] [address], [address], 10/17/2021 13:07:32 11/21/19 22 11/21/2021 urina lysis panel , auto Unknown Analyte Clean Catch Not Available [facility] Extended Services With [address], [place], [address], 11/21/2021 19:18:07 11/21/19 22 11/21/2021 urina lysis panel , auto Unknown Analyte Yellow Not Available [facility] [place] [facility] Extended Services With [address], [place], [address], 11/21/2021 19:18:07 11/21/19 22 11/21/2021 urina lysis panel , auto Unknown Analyte Clear Not Available [facility] Extended Services With [address], [place], [address], 11/21/2021 19:18:07 11/21/19 22 11/21/2021 urina lysis panel , auto Unknown Analyte 1.020 Not Available [facility] Extended Services With [address], [place], [address], 11/21/2021 19:18:07 11/21/19 22 11/21/2021 urina lysis panel , auto Unknown Analyte 1.003- 1.035 Not Available [facility] Extended Services With [address] [place], [address], 11/21/2021 19:18:07 11/21/19 22 11/21/2021 urina lysis panel , auto Unknown Analyte 5.0 Not Available [facility] Extended Services With [address] [place], [address], 11/21/2021 19:18:07 11/21/19 22 11/21/2021 urina lysis panel , auto Unknown Analyte 5.0-8. 0 Not Available [facility] Extended Services With [address] [place], [address], 11/21/2021 19:18:07 11/21/19 22 11/21/2021 urina lysis panel , auto Unknown Analyte Negati ve Not Available [facility] Extended Services With [address] [place], [address], 11/21/2021 19:18:07 11/21/19 22 11/21/2021 urina lysis panel , auto Unknown Analyte Negati ve Not Available [facility] Extended Services With [address] [place], [address], 11/21/2021 19:18:07 11/21/19 22 11/21/2021 urina lysis panel , auto Unknown Analyte Negati ve Not Available [facility] Extended Services With [address] [place], [address], 11/21/2021 19:18:07 11/21/19 22 11/21/2021 urina lysis panel , auto Unknown Analyte Negati ve Not Available [facility] Extended Services With [address] [place], [address], 11/21/2021 19:18:07 11/21/19 22 11/21/2021 urina lysis panel , auto Unknown Analyte Negati ve Not Available [facility] Extended Services With [address] [place], [address], 11/21/2021 19:18:07 11/21/19 22 11/21/2021 urina lysis panel , auto Unknown Analyte Negati ve Not Available [facility] Extended Services With [address] [place], [address], 11/21/2021 19:18:07 11/21/19 22 11/21/2021 urina lysis panel , auto Unknown Analyte Normal Not Available [facility] Extended Services With [address] [place], [address], 11/21/2021 19:18:07 11/21/19 22 11/21/2021 urina lysis panel , auto Unknown Analyte Normal Not Available [facility] Extended Services With [address] [place], [address], 11/21/2021 19:18:07 11/21/19 22 11/21/2021 urina lysis panel , auto Unknown Analyte Negati ve Not Available [facility] Extended Services With [address] [place], [address], 11/21/2021 19:18:07 11/21/19 22 11/21/2021 urina lysis panel , auto Unknown Analyte Negati ve Not Available [facility] Extended Services With [address] [place], [address], 11/21/2021 19:18:07 11/21/19 22 11/21/2021 urina lysis panel , auto Unknown Analyte Normal Not Available [facility] Extended Services With [address] [place], [address], 11/21/2021 19:18:07 11/21/19 22 11/21/2021 urina lysis panel , auto Unknown Analyte Normal 1 mg/dl Not Available [facility] Extended Services With [address] [place], [address], 11/21/2021 19:18:07 11/21/19 22 11/21/2021 urina lysis panel , auto Unknown Analyte Negati ve Not Available [facility] Extended Services With [address] [place], [address], 11/21/2021 19:18:07 11/21/19 22 11/21/2021 urina lysis panel , auto Unknown Analyte Negati ve Not Available [facility] Extended Services With [address] [place], [address], 11/21/2021 19:18:07 11/21/19 22 11/21/2021 urina lysis panel , auto Unknown Analyte Negati ve Not Available [facility] Extended Services With [address] [place], [address], 11/21/2021 19:18:07 11/21/19 22 11/21/2021 urina lysis panel , auto Unknown Analyte Negati ve Not Available [facility] Extended Services With [address] [place], [address], 11/21/2021 19:18:07 Result Notes None recorded. Medical [...] Updated DateTime 11/21/2021 177.8 cm 27.3 kg/m2 54493.55 g Yoav Vicente [facility] 11/21/2021 19:14:10 Date Recorded Body height Body mass index (BMI) Body weight Provider Name and Address Organization Details Last Updated DateTime 09/19/2021 177.8 cm 27.3 kg/m2 33974.55 g Mat Lenz [facility] 09/19/2021 17:40:04 Social History Question Answer Notes LastModified by Organizat ion Details LastModified Time Tobacco Smoking Status Former [facility]oker [facility] 09/19/2021 17:40:28 What Was The Date [...] available 09/19 17:40:18 Medical History Condition Response Kidney Disease Y Heart Conditions Y False Teeth Y Heart Attack ([place]) Y Diabetes Y Heart Disease Y Hypertension Y Past Encounters Encounter ID Performer Location Encounter Start Date Encounter Closed Date Diagnosis/Indication Diagnosis SNOMED-CT Code Diagnosis ICD10 Code Diagnosis Note [id number] ZEUS MARCANO MD [facility] EXTENDED SERVICES [address] [place] [address] 09/19/2021 15:51:59 10/14/2021 14:38:10 Hydrocele of testis 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 [address] [facility],[place] [address] 11/21/2021 13:45:05 11/21/2021 15:47:16 Hydrocele of testis 28145977 N43.3 Health Concerns Section Related Observation LastModified by Organization Detai ls LastModified Time None Recorded Concern Status LastModified by Organization Details LastModified Time None Recorded Advance Directives Directive None Recorded Payers Insurance Date Sequence Insurance Name Policy Number Policy Meraz Covered Member ID Meraz Member ID Guarantor Name 11/25/2021 1 [place] [id number] Venancio Jones [id number] Venancio Jones Notes Date Note Type [...] He takes doxazosin daily. ZEUS MARCANO MD [address] [place] [address], [address], [facility] 09/28/2021 10:07:16 11/21/2021 text/html 76-year-old male in the office for follow-up evaluation following right hydrocelectomy. He denies bothersome symptoms. He denies significant swelling or pain. ZEUS MARCANO MD [address] [place] [address], [address], [facility] 11/24/2021 14:47:26
--- OUTSIDE RECORDS SUMMARY | 2025-04-21 09:17 | XMS_ITS | Clinical Summary ---
Author Organization [facility] Address [address] [place] [id number] Care Team Providers Care Dental Manager Name Role Phone Yousif Montalvo MD Primary Care Provider [phone] Allergies No known active allergies Medications rivaroxaban (XARELTO) 10 MG tablet Take 10 mg by mouth Daily. Active glipiZIDE (GLUCOTROL) 10 MG tablet Take 10 mg by mouth 2 (Two) Times a Day Before Meals. Active atorvastatin (LIPITOR) 10 MG tablet Take 10 mg by mouth Daily. Active raNITIdine (ZANTAC) 150 MG tablet Take 150 mg by mouth 2 (Two) Times a Day. Active metFORMIN (GLUCOPHAGE) 1000 MG tablet Take 1,000 mg by mouth 2 (Two) Times a Day With Meals. Active pioglitazone (ACTOS) 15 MG tablet Take 15 mg by mouth Daily. Active lisinopril (PRINIVIL,ZESTR IL) 10 MG tablet Take 10 mg by mouth Daily. Active metoprolol tartrate (LOPRESSOR) 50 MG tablet Take 50 mg by mouth 2 (Two) Times a Day. Active furosemide (LASIX) 20 MG tablet Take 20 mg by mouth 2 (Two) Times a Day. Active hydrALAZINE (APRESOLINE) 50 MG tablet Take 50 mg by mouth 3 (Three) Times a Day. Active Insulin Glargine (TOUJEO SOLOSTAR) 300 UNIT/ML solution pen-injector Inject under the skin. Active azithromycin (ZITHROMAX Z-DILLON) 250 MG tabletIndicatio ns:Bronchitis Take 2 tablets the first day, then 1 tablet daily for 4 days. 6 tablet 11/20/2016 Active promethazine-de xtromethorphan (PROMETHAZINE-D M) 6.25-15 MG/5ML syrupIndication s:Cough Take 5 mL by mouth 4 (Four) Times a Day As Needed for cough. 240 mL 11/20/2016 Active Active Problems No known active problems Social History Tobacco Use Types Packs/Day Years Used Date Smoking Tobacco: Never Assessed Abuse Screen Answer Date Recorded Unsafe at Home or Work/School Not on file Feels Threatened by Someone? Not on file 07/2023 Does Anyone Keep You from Co ntacting Others or Doint Things Outside the Home? Not on file 07/08/2023 Physical Sign of Abuse Present Not on file 1 Housing Stability Answer Date Recorded Current Living Arrangements Not on file 06/28 Potentially Unsafe Housing Conditions Not on rich e 07/08/2023 Family and Community Support Answer Kam e Recorded Help with Day-to-Day Activities Not on file 07/08/2023 Lonely or Isolated Not on file 07/08/2023 Employment Answer Date Recorded Do you want help finding or keeping work or a jonathan b? Not on file 07/08/2023 Disabilities Answer Date Recorded Concentrating, Remembering, or Making Decisions Difficulty Not on file 07/08/2023 Doing Errands Independently Difficulty Not on fi le 07/08/2023 Education Answer Date Recorded Help with school or training? Not on file Preferred Language Not on file 07/08/2023 Sex and Gender Information Value Date Recorded Sex Assigned at Not on file Legal Sex Male 3:01 PM EST Gender Identity Not on file Sexual Orientation Not on file Last Filed Vital Signs Vital Sign Reading Time Taken Comments Blood Pressure - - Pulse 67 11/20/2016 3:22 PM EST Temperature 38.7 C (101.6 F) 11/20/2016 3:22 PM EST Respiratory Rate 20 11/20/2016 3:22 PM EST Oxygen Saturation 91% 11/20/2016 3:22 PM EST Inhaled Oxygen Concentration - - Weight 96.2 kg (212 lb) 11/20/2016 3:22 PM EST Height 177.8 cm (5' 10 ) 11/20/2016 3:22 PM EST Body Mass Index 30.42 11/20/2016 3:22 PM EST Plan of Treatment Health Maintenance Due Date Last Done Comments ANNUAL PHYSICAL 1945 HEPATITIS C SCREENING 1945 TDAP/TD VACCINES (1 - Tdap) 1966 Pneumococcal Vaccine 50+ (1 of 1 - PCV) 1997 ZOSTER VACCINE (1 of 2) 1997 RSV Vaccine - Adults (1 - 1-dose 75+ series) 2 COVID-19 Vaccine (1 - 2023- season) 2024 INFLUENZA VACCINE 06/28/2025 Insurance [facility] MEDICARE ADVANTAGE Care Teams Dental Manager Relationship Specialty Start Date End Date Yousif Montalvo MD [address] [place] [address] PCP - General Family Medicine 11/20/16
--- OUTSIDE RECORDS SUMMARY | 2025-04-21 09:17 | XMS_ITS | Data Portability ---
Author Organization [facility] & [place] AD[place] Address [address] [place] [address] Care Team Providers Care Glass Embosser Name Role Phone SANGEETHA MONTALVO Primary Care Provider [phone] JOYA MONDRAGON Head Boys Tennis Coach [phone] Assessment No assessment recorded. Plan of Treatment Reminders Order Date Submit Date Provider Last Modified By Organization Details Last Modified Time Details Appointments OV EST 15 2024 09:45A M Karyn Nolasco NP Not available Not available Not available Lab CBC w/ auto diff 2024 025 [facility] (Surgery Sched), [address] [place], [address], 11/30/2024 09:10:06 CMP, serum or plasma 2024 025 [facility] (Surgery Sched), [address] [place], [address], 11/30/2024 09:10:06 PT/INR 2024 025 [facility] (Surgery Sched), [address] [place], [address], 11/30/2024 09:10:06 afp (alpha-f etoprote in) tumor marker, serum or plasma 2024 025 [facility] (Surgery Sched), [address] [place], [address], 11/30/2024 09:10:06 Referral None recorded . Procedures None recorded . Surgeries None recorded . Imaging US, liver 2024 025 [facility] (Scheduling), [address], [place], [address], 01/04/2025 12:01:14 US, liver 2023 024 [facility] (Scheduling), [address], [place], [address], 08/04/2024 09:44:02 US, echocard iogram, transtho racic, complete , w/ color flow 2023 024 [email or web address] [facility], [address], [place], [address], 04/25/2024 15:23:56 Medication Orders None recorded . Patient TargetsNo targets recorded. Patient InstructionsNo instructions recorded. Reason for Referral None Reported. Results Created Date Observation Date Name Description Value Unit Range Abnormal Flag Note LastModifiedBy Organization Detail LastModifiedTime 01/21/20 25 01/20/2025 PT (PROT HROMB IN TIME) W INR PT (prothrombin time) 11.7 secon ds 9.1-12 .0 Not Available [facility] (Lab Registration) [address], [place], [address], 01/20/2025 10:57:54 01/21/2001/20/2025 PT (PROT HROMB IN [...] mecha nical heart valve s. Not Available [facility] (Lab Registration) [address], [place], [address], 01/20/2025 10:57:54 01/21/20 25 01/20/2025 PT (PROT HROMB IN TIME) W INR note Unles s other sarmiento noted testi ng perfo rmed at: [facility] [address] [place] [address] [phone] Randy mauricio MD CLIA: [id number] Not Available [facility] (Lab Registration) [address] [place], [address], 01/20/2025 10:57:54 01/21/2001/20/2025 CBC AUTO W DIFF WBC 7.7 10 4.5-11 .5 Not Available [facility] (Lab Registration) [address] [place], [address], 01/20/2025 11:00:13 01/21/20 25 01/20/2025 CBC AUTO W DIFF RBC 4.26 10 4.25-5 .57 Not Available [facility] (Lab Registration) [address] [place], [address], 01/20/2025 11:00:13 01/21/2001/20/2025 CBC AUTO W DIFF HGB 12.8 g/dL 13.5-1 7.2 low Not Available [facility] (Lab Registration) [address] [place], [address], 01/20/2025 11:00:13 01/21/20 25 01/20/2025 CBC AUTO W DIFF HCT 38.8 % 42.0-5 2.0 low Not Available [facility] (Lab Registration) [address] [place], [address], 01/20/2025 11:00:13 01/21/20 25 01/20/2025 CBC AUTO W DIFF MCV 91.1 fL 80-95 Not Available [facility] (Lab Registration) [address] [place], [address], 01/20/2025 11:00:13 01/21/20 25 01/20/2025 CBC AUTO W DIFF MCH 30.0 pg 27.0-3 4.0 Not Available [facility] (Lab Registration) [address] [place], [address], 01/20/2025 11:00:13 01/21/20 25 01/20/2025 CBC AUTO W DIFF MCHC 33.0 g/dL 32.0-3 6.0 Not Available [facility] (Lab Registration) [address] [place], [address], 01/20/2025 11:00:13 01/21/2001/20/2025 CBC AUTO W DIFF platelet count 200 10 150-45 0 Not Available [facility] (Lab Registration) [address] [place], [address], 01/20/2025 11:00:13 01/21/20 25 01/20/2025 CBC AUTO W DIFF RDW 15.2 % 12.3-1 5.1 high Not Available [facility] (Lab Registration) [address] [place], [address], 01/20/2025 11:00:13 01/21/20 25 01/20/2025 CBC AUTO W DIFF MPV 11.2 fL 7.4-10 .4 high Not Available [facility] (Lab Registration) [address] [place], [address], 01/20/2025 11:00:13 01/21/2001/20/2025 CBC AUTO W DIFF granulocyte% 68.4 % 40-75 Not Available [facility] (Lab Registration) [address] [place], [address], 01/20/2025 11:00:13 01/21/20 25 01/20/2025 CBC AUTO W DIFF lymphocyte% 15.9 % 15-57 Not Available [facility] (Lab Registration) [address] [place], [address], 01/20/2025 11:00:13 01/21/2001/20/2025 CBC AUTO W DIFF monocyte% 10.6 % 4.0-12 .0 Not Available [facility] (Lab Registration) [address] [place], [address], 01/20/2025 11:00:13 01/21/2001/20/2025 CBC AUTO W DIFF eosinophil% 4.1 % 0.0-4. 0 high Not Available [facility] (Lab Registration) [address] [place], [address], 01/20/2025 11:00:13 01/21/2001/20/2025 CBC AUTO W DIFF basophil% 0.3 % 0.0-1. 0 Not Available [facility] (Lab Registration) [address] [place], [address], 01/20/2025 11:00:13 01/21/2001/20/2025 CBC AUTO W DIFF immature granulocytes % 0.7 % 0.0-0. 8 Not Available [facility] (Lab Registration) [address] [place], [address], 01/20/2025 11:00:13 01/21/2001/20/2025 CBC AUTO W DIFF granulocyte# 5.24 10 Not Available [facility] (Lab Registration) [address] [place], [address], 01/20/2025 11:00:13 01/21/2001/20/2025 CBC AUTO W DIFF lymphocyte# 1.22 10 Not Available [facility] (Lab Registration) [address] [place], [address], 01/20/2025 11:00:13 01/21/2001/20/2025 CBC AUTO W DIFF monocyte# 0.81 10 Not Available [facility] (Lab Registration) [address] [place], [address], 01/20/2025 11:00:13 01/21/20 25 01/20/2025 CBC AUTO W DIFF eosinophil# 0.31 10 Not Available [facility] (Lab Registration) [address] [place], [address], 01/20/2025 11:00:13 01/21/20 25 01/20/2025 CBC AUTO W DIFF basophil# 0.02 10 Not Available [facility] (Lab Registration) [address] [place], [address], 01/20/2025 11:00:13 01/21/20 25 01/20/2025 CBC AUTO W DIFF immature granulocytes # 0.05 10 Not Available [facility] (Lab Registration) [address] [place], [address], 01/20/2025 11:00:13 01/21/20 25 01/20/2025 CBC AUTO W DIFF manual differential NO Not Available [facility] (Lab Registration) [address] [place], [address], 01/20/2025 11:00:13 01/21/2001/20/2025 CBC AUTO W DIFF note Unles s other sarmiento noted testi ng perfo rmed at: [facility] [address] [place] [address] [phone] Randy mauricio MD CLIA: [id number] Not Available [facility] (Lab Registration) [address] [place], [address], 01/20/2025 11:00:13 01/21/2001/20/2025 COMP METAB OLIC PANEL sodium 140 mmol/ L 136-14 5 Not Available [facility] (Lab Registration) [address] [place], [address], 01/20/2025 11:25:24 01/21/20 25 01/20/2025 COMP METAB OLIC PANEL potassium 4.0 mmol/ L 3.5-5. 1 Not Available [facility] (Lab Registration) [address] [place], [address], 01/20/2025 11:25:24 01/21/20 25 01/20/2025 COMP METAB OLIC PANEL chloride 106 mmol/ L 98-107 Not Available [facility] (Lab Registration) [address] [place], [address], 01/20/2025 11:25:24 01/21/20 25 01/20/2025 COMP METAB OLIC PANEL carbon dioxide 22 mmol/ L 21-32 Not Available [facility] (Lab Registration) [address] [place], [address], 01/20/2025 11:25:24 01/21/20 25 01/20/2025 COMP METAB OLIC PANEL anion gap 12.0 Not Available [facility] (Lab Registration) [address] [place], [address], 01/20/2025 11:25:24 01/21/20 25 01/20/2025 COMP METAB OLIC PANEL glucose 195 mg/dL 70-110 high Not Available [facility] (Lab Registration) [address] [place], [address], 01/20/2025 11:25:24 01/21/20 25 01/20/2025 COMP METAB OLIC PANEL blood urea nitrogen 49 mg/dL 7-18 high Not Available [facility] (Lab Registration) [address] [place], [address], 01/20/2025 11:25:24 01/21/20 25 01/20/2025 COMP METAB OLIC PANEL creatinine 2.4 mg/dL 0.8-1. 3 high Not Available [facility] (Lab Registration) [address] [place], [address], 01/20/2025 11:25:24 01/21/20 25 01/20/2025 COMP METAB OLIC PANEL BUN/creatini ne ratio 20.4 9-21 Not Available [facility] (Lab Registration) [address], [place], [address], 01/20/2025 11:25:24 01/21/20 25 01/20/2025 COMP METAB [...] garcía ing kiney funct ion. Not Available [facility] (Lab Registration) [address], [place], [address], 01/20/2025 11:25:24 01/21/20 25 01/20/2025 COMP METAB OLIC PANEL osmolality (calculated) 309 mOsm/ kg 275-30 1 high OSMOL ALITY IS A CALCU LATIO N UTILI ZING THE SERUM /PLAS MA SODIU M, GLUCO SE AND UREA NITRO GEN (BUN) LEVEL S. FOR THE MOST ACCUR ATE RESUL T A MEASU RED SERUM OSMOL ALITY IS SUGGE STED. Not Available [facility] (Lab Registration) [address], [place], [address], 01/20/2025 11:25:24 01/21/20 25 01/20/2025 COMP METAB OLIC PANEL total protein 7.2 g/dL 6.4-8. 2 Not Available [facility] (Lab Registration) [address], [place], [address], 01/20/2025 11:25:24 01/21/20 25 01/20/2025 COMP METAB OLIC PANEL albumin 3.3 g/dL 3.4-5. 0 low Not Available [facility] (Lab Registration) [address] [place], [address], 01/20/2025 11:25:24 01/21/20 25 01/20/2025 COMP METAB OLIC PANEL calcium 9.1 mg/dL 8.5-10 .1 Not Available [facility] (Lab Registration) [address] [place], [address], 01/20/2025 11:25:24 01/21/20 25 01/20/2025 COMP METAB OLIC PANEL corrected calcium 9.7 mg/dL 8.5-10 .1 Not Available [facility] (Lab Registration) [address] [place], [address], 01/20/2025 11:25:24 01/21/20 25 01/20/2025 COMP METAB OLIC PANEL bilirubin total 0.6 mg/dL 0.4-1. 5 Not Available [facility] (Lab Registration) [address] [place], [address], 01/20/2025 11:25:24 01/21/20 25 01/20/2025 COMP METAB OLIC PANEL AST (SGOT) 62 U/L 15-37 high Not Available [facility] (Lab Registration) [address] [place], [address], 01/20/2025 11:25:24 01/21/20 25 01/20/2025 COMP METAB OLIC PANEL ALT (SGPT) 70 U/L 12-78 Not Available [facility] (Lab Registration) [address] [place], [address], 01/20/2025 11:25:24 01/21/20 25 01/20/2025 COMP METAB OLIC PANEL alk phosphatase 178 U/L Not Available [facility] (Lab Registration) [address] [place], [address], 01/20/2025 11:25:24 01/21/20 25 01/20/2025 COMP METAB OLIC PANEL note Unles s other sarmiento noted testi ng perfo rmed at: [facility] [address] [place] [address] [phone] Randy mauricio MD CLIA: [id number] Not Available [facility] (Lab Registration) [address] [place], [address], 01/20/2025 11:25:24 01/21/20 25 01/20/2025 AFP, SERUM , TUMOR MARKE R note Unles s other sarmiento noted testi ng perfo rmed at: [facility] [address] [place] [address] [phone] Randy mauricio MD CLIA: [id number] Not Available [facility] (Lab Registration) [address] [place], [address], 01/21/2025 10:12:49 01/21/20 25 01/21/2025 AFP, SERUM , TUMOR MARKE R AFP, serum, tumor marker <1.8 NG/mL 0.0-8. 4 Ed Diagn ostic s Elect ed milum inesc ence Immun oassa y (ECLI A) . Value s obtai rama with diffe rent assay metho ds or kits canno t be used inter garcía eably . Resul ts canno t be inter prete d as absol [place] evide nce of the prese nce or absen ce of [facility] demetrio wolfe se. . This test is not inter preta ble in pregn ant femal es. Perfo rmed at: [facility] [address] [place], [place] [id number] [facility] Lab Direc tor: Zach patel PhD, Phone : [phone] SENT TO REFER ENCE LAB Not Available [facility] (Lab Registration) [address] [place], [address], 01/21/2025 10:12:49 03/21/20 24 03/21/2024 , shivani ide [facility] [address] [place] [address] Phone: Fax: Name: VENANCIO WILLIS Exam Date: : [birth year] Age 78 years Gender : M Access ion: [id number] Physic pratik: ALEXANDR TAYLOR, SMITH Y Facili ty: [facility] Facili ty HSV: Outpat ient Exam: [...] you for referr ing VENANCIO WILLIS to [facility]. Legall y authen ticate d by LOTUS Daley MD 2023-0 03-21 15:34: 59 CC'ed Logic: Orderi ng Provid er: ALEXANDR MTZ Y CC Provid er: SAUD VIVAS Attend ing Provid er: ALEXANDR MTZ Y Referr ing Provid er: ALEXANDR MTZ Y Admitt ing Provid er: ALEXANDR gleason [facility] (Radiology) [address], [place], [address], 03/22/2024 18:18:09 04/18/20 24 04/15/2024 US, echoc ardio gram, trans thora cic, compl ete, w/ color flow [facility] [address] [place] [address] Phone: Fax: Name: VENANCIO WILLIS Exam Date: 024 : 947 Age 78 years Gender : M Access ion: [id number] Physic pratik: MIKA KNAPP Facili ty: [facility] Facili ty HSV: Outpat ient [...] rophy. There is hypoki nesis of the senior environmental consultant ior wall. The remain merna of the [...] is with a valve area of 2.58 drafting supervisor? grad=6 mmHg, LVOT talon=2. 40cm, LVOT TVI=21 .6cm, Ao TVI=37 .9cm). The dimens ionles s index is 0.57. AV peak veloci ll=218 cm/sec . There is mild-m oderat e [...] you for referr ing VENANCIO WILLIS to [facility]. Legall y authen ticate d by RA Cohen 04-18 13:43: 24 CC'ed Logic: Orderi ng Provid er: AR WASHINGTON Attend ing Provid er: RA WASHINGTON Admitt ing Provid er: RA WASHINGTON [facility] [address] [facility], [place], [address], 04/29/2024 11:15:08 08/04/20 24 08/04/2024 US, liver No observ ation record ed. [facility] (Radiology) [address] [place], [address], 08/05/2024 10:43:54 08/04/20 24 08/04/2024 US, liver [place] [facility] [address] [facility] [place] [address] Phone: Fax: Name: VENANCIO WILLIS Exam Date: : [birth year]47 Age 79 years Gender : M Access ion: [id number] Physic pratik: ROBIN NOLASCO Facili ty: [facility] Facili ty HSV: Outpat ient Exam: [...] ascite s. Electr onical ly signed by: Hiren Osorio MD 2023 09:38 AM EST RP Workst ation: [id number] Dictat ed By: HIREN OSORIO Transc ribed By: Transc ribed On: 8:58 AM Electr onical ly signed by: HIREN OSORIO 024 Thank you for referr ing VENANCIO WILLIS to [facility] ity Hospit al. Legall y authen ticate d by KELLE BARBA 2023-09 08:58: 00 CC'ed Logic: Orderi ng Provid er: BROOKE Robison CC Provid er: SAUD VIVAS Attend ing Provid er: BROOKE Robison Referr ing Provid er: BROOKE Robison Admitt ing Provid er: BROOKE [address]man[address] [place] [address] (Radiology) [address] [place], [address], 08/04/2024 15:19:42 01/05/20 25 01/04/2025 US, liver No observ ation record ed. [facility] (Radiology) [address] [place], [address], 01/06/2025 13:40:52 01/05/20 25 01/04/2025 US, liver [facility] [address] [place] [address] Phone: Fax: Name: VENANCIO WILLIS Exam Date: 01/05/20 : [birth year] Age 79 years Gender : M Access ion: [id number] Physic pratik: ROBIN NOLASCO Facili ty: [facility] Facili ty HSV: Outpat ient Exam: [...] you for referr ing VENANCIO WILLIS to [facility] ity Hospit al. Legall y authen ticate d by FRANCIS LA MD 2024-01-04 08:33: 20 CC'ed Logic: Orderi ng Provid er: BROOKE Robison CC Provid er: SAUD VIVAS Attend ing Provid er: BROOKE Robison Referr ing Provid er: BROOKE Robison Admitt ing Provid er: BROOKE Robison [facility] (Radiology) [address], [place], [address], 01/06/2025 13:40:51 Result Notes None recorded. Problems Name Problem SNOMED Code Status Onset Date Resolution Date Notes Provider Name and Address Organization Details Recorded Time Constipati on 62423932 Active Inocencia [place], [place] & [place] 3 13:09:05 Numbness of upper limb 834877903 Active Inocencia [place] 3 13:09:05 Lesion of tongue 496872545 Active Inocencia [place] 3 13:09:05 Patient encounter status 884558625 Active Inocencia [place] 3 13:09:05 Moderate chronic obstructiv e pulmonary disease 323352120 Active Inocencia [place] 3 13:09:05 Thrombotic stroke 929065042 Active Inocencia [place] 3 13:09:05 Hypertensi ve disorder 40684265 Active Inocencia [place] 3 13:09:05 Ascites 424480645 Active Inocencia [place] & [place] 3 13:09:05 Diastolic heart failure 279022215 Active Inocencia [place] 3 13:09:05 Unable to void urine 9150367579354 01 Active Inocencia [place] 3 13:09:05 Coronary arterioscl erosis 85641563 Active Inocencia [place] 3 13:09:05 Carotid artery stenosis 17295191 Active Inocencia [place] 3 13:09:05 Pulmonary hypertensi on 21832973 Active Inocencia [place] 3 13:09:05 Long-term current use of anticoagul ant 748129234 Active Inocencia [place] 3 13:09:05 Diabetes mellitus 90465540 Active Inocencia [place] 3 13:09:05 Kidney lesion 9755850129242 0 Active Inocencia [place] 3 13:09:05 Retention of urine 149535450 Active 2021 Sudha Martell [place] & [place] 2 11:40:29 Poor stream of urine 570929211 Active 2021 Sudha [place] 2 11:40:43 Nocturia 118829889 Active 2021 Sudha [place] 2 11:41:29 Type 2 diabetes mellitus 12715613 Active 2022 Inocencia [place] & [place] 3 13:09:05 Cirrhosis of liver 92523362 Active 2022 Inocencia [place] & [place] 3 13:09:05 Congestive heart failure 07915177 Active 2022 Berta [place] 3 12:40:57 Atrial fibrillati on 68312047 Active 2022 Inocencia [place] 3 13:09:05 Chronic obstructiv e pulmonary disease 40918244 Active 2022 Inocencia [place] 3 13:09:05 Chronic kidney disease stage 3B 725646391 Active 2022 Berta [place] 3 12:41:48 Coronary atheroscle rosis 193951793 Active 2022 Inocencia [place] & [place] 3 13:09:05 Hyperlipid emia 61005792 Active 2022 Mika Knapp MD [address] [facility], [place], [address] , [place] & [place] 3 13:20:37 Essential hypertensi on 92386916 Active 2022 Inocenciaher Yanez [place] 3 13:09:05 Patent foramen ovale 783859034 Active 2022 Mika Knapp MD [address] [facility], [place], [address] , [place] [facility] & [place] 3 13:46:11 Chronic kidney disease 371392996 Active 2022 Mika Knapp MD [address] [facility], [place], [address] , [place] 3 14:18:02 Dyspnea on exertion 73461947 Active 2023 Mika Knapp MD [address] [facility], [place], [address] , [place] - [facility] & [place] 4 14:53:30 Bilateral lower limb edema 062697555 Active 2024 Karyn Nolasco NP [address] [place] [address], [address], [address] , [place] - [facility] & [place] 5 10:40:11 Problem Notes None recorded. Procedures Surgical History Date Name Laterality Status Provider Name and Address Organization Details Recorded Time placement of stent in cardiac conduit completed Karyn Nolasco NP [address] [facility], [address], [place], [address], [place] [facility] [place] 11/25/2024 10:41:38 Imaging Results None recorded. Procedure Notes None recorded. Medical Equipment None [...] Ultra-Fine Short Pen Needle 31 gauge x 02/10 USE DIRECTED active Not Available Not Available [...] Updated DateTime 5 177.8 cm 26.7 kg/m2 53988.6 2 g 97.4 [degF] 96 % 96 % 76 /min Katt [employer] - [facility] & [place] 5 09:50:51 Date Recorded Body height Body mass index (BMI) Body weight Oxygen saturation Oxygen saturation in Arterial blood by Pulse oximetry Heart rate Systolic And Diastolic Provider Name and Address Organization Details Last Updated DateTime 4 177.8 cm 28.6 kg/m2 55579.8 8 g 96 % 96 % 57 /min 138/58 mm[Hg] Jesusita Well [employer] [facility] & [place] 4 14:32:28 Date Recorded Body height Body mass index (BMI) Body weight Oxygen saturation Oxygen saturation in Arterial blood by Pulse oximetry Heart rate Systolic And Diastolic Provider Name and Address Organization Details Last Updated DateTime 4 177.8 cm 28.7 kg/m2 85971.4 7 g 96 % 96 % 60 /min 150/60 mm[Hg] Jesusita Dawkins [employer] [facility] & [place] 4 13:15:48 Date Recorded Body height Body mass index (BMI) Body weight Body temperature Oxygen saturation Oxygen saturation in Arterial blood by Pulse oximetry Heart rate Provider Name and Address Organization Details Last Updated DateTime 4 177.8 cm 29.2 kg/m2 62372.4 1 g 97.3 [degF] 95 % 95 % 89 /min Katt [employer] [facility] & [place] 4 13:12:55 Date Recorded Body height Body mass index (BMI) Body weight Oxygen saturation Oxygen saturation in Arterial blood by Pulse oximetry Heart rate Systolic And Diastolic Provider Name and Address Organization Details Last Updated DateTime 4 177.8 cm 26.4 kg/m2 77866 g 95 % 95 % 55 /min 140/58 mm[Hg] Jesusita Dawkins [facility] & [place] 4 13:51:59 Social History Question Answer Notes LastModified by Organizat ion Details LastModified Time Tobacco Smoking Status Former Smoker Berta kelly, [facility] & [place] 12/05/2022 12:28:32 Do You Have An Advance Directive? No Information not available 12/05/2022 Are You Blind Or Do You Have Difficulty Seeing? No Information not available 12/05/2022 What Is Your Level Of Caffeine Consumption? Moderate [email or web address] Information not available 02/29/2024 When Did You Quit Smoking? 16+yearssinc elastcigaret te [email or web address] Information not available 08/15/2024 What Was The [...] anxious, or unable to sleep at night)? [id number] Information not available 12/05/2022 Family History Nothing Reported Notes:Mother positive for he art disease Medical History Condition Response Diabetes Y Kidney or Bladder Problems Y High Cholesterol Y Liver Disease Y Heart Disease Y Hypertension Y Immunizations Vaccine Type Date Status Note Provider Nam winston and Address Organization Details Recorded Time Influenza, split virus, trivalent, PF 06/28/2015 completed Inocencia Camposl robin, [place] - [facility] - [place] & [place] 02/03/2023 13:09:36 Influenza, split virus, trivalent, PF 07/09/2016 completed Inocencia Camposl robin, [place] - [facility] - [place] & [place] 02/03/2023 13:09:36 Past Encounters Encounter ID Performer Location Encounter Start Date Encounter Closed Date Diagnosis/Indication Diagnosis SNOMED-CT Code Diagnosis ICD10 Code Diagnosis Note [id number] Ian Mondragon M.D [facility] [address] [place] [phone] 07/23/2022 13:55:19 07/23/2022 16:07:46 Cirrhosis of liver 28471988 K74.60 Secondary to LOPEZ. Doing well overall. [...] fibrillation 4943 6004 I48.91 Continue Eliquis. Ascites 600534683 R18.8 [id number] Bill Jett MD [facility] [address] [facility] [place] [address] 09/15/2022 14:40:13 09/15/2022 15:23:02 Retention of urine 816075305 R33.9 Poor stream of urine 162 236454 R39.12 Nocturia 081657664 R35.1 Anticoagulant therapy 18 3935805 Z79.01 Screening for malignant neoplasm of prostate 370809375 Z12.5 [id number] Mika Knapp MD [facility] [place] [address] 12/05/2022 12:41:02 12/05/2022 13:46:12 Atrial fibrillation 07181884 I48.91 chronic. Rates well controlled .Increase Eliquis to 5 b.i.d. Coronary atherosclerosis 727322698 I25.10 sp CABGDenies any anginal or heart failure symptoms.C ontinue aggressive risk factor modificati on.Continu e current cardiac regimen. History of coronary artery bypass grafting 027825910 Z95.1 Hyperlipidemia 12929620 E78.5 Continue statin Low fat/carboh ydrate diet Increase exercise Lose weight Essential hypertension 18626354 I10 Increase Norvasc 5 daily for better BP control. Patent foramen ovale 204 307696 Q21.12 [id number] ANTONIO Guillory [facility] [address] [place] [address] 01/07/2023 13:42:41 01/07/2023 14:30:28 Metabolic dysfunction-associate d steatohepatitis [id number] K75.81 Patient continues to do well overall. Will obtain labs today. Continue paracentes is PRN, he is currently going every few months. He will call with any progressio n of symptoms. otherwise f/u in 6 months. Cirrhosis of liver 007 K74.60 [id number] Mika Knapp MD [facility] [address] [place] [address] 02/03/2023 13:47:54 02/03/2023 14:16:21 Atrial fibrillation 31936774 I48.91 chronic. Rates well controlled .Increase Eliquis to 5 b.i.d. Coronary atherosclerosis 509506079 I25.10 sp CABGDenies any anginal or heart failure symptoms.C ontinue aggressive risk factor modificati on.Continu e current cardiac regimen. Hyperlipidemia 92489051 E78.5 Continue statin Low fat/carboh ydrate diet Increase exercise Lose weight Essential hypertension 31952721 I10 Continue current medication . Keep log Low-salt diet < 2 gm Na/day, Regular exercise Weight loss Patent foramen ovale 204 531770 Q21.12 History of coronary artery bypass grafting 224341855 Z95.1 Cirrhosis of liver K74.60 Chronic ki dney disease 631212625 N18.9 [id number] Ian Mondragon M.D [facility] [address] [place] [address] 07/15/2023 14:44:32 07/15/2023 15:27:08 Cirrhosis of liver 98141318 K74.60 No LOPEZ cirrhosis, not requiring therapeuti c paracentes is at this time. On minimal diuretic therapy Lasix 20 mg per day, Aldactone 25 mg per day. Doing well overall. No lower extremity edema. At this juncture check normal cirrhosis labs as per below, ultrasound screen for HCC. Continue to monitor. [id number] Mika Knapp MD [facility] [address] [place] [address] 08/07/2023 13:01:56 08/07/2023 13:36:51 Atrial fibrillation 46196153 I48.91 chronic. Rates well controlled .Continue Eliquis to 5 b.i.d. Coronary atherosclerosis 248357672 I25.10 sp CABGNo anginal or heart failure symptoms.C ontinue aggressive risk factor modificati on.Continu e current cardiac regimen. Hyperlipidemia 30943899 E78.5 Continue statin Low fat/carboh ydrate diet Increase exercise Lose weight Essential hypertension 46224837 I10 Continue current medication . Keep log Low-salt diet < 2 gm Na/day, Regular exercise Weight loss Patent foramen ovale 204 361430 Q21.12 History of coronary artery bypass grafting 437853279 Z95.1 Cirrhosis of liver K74.60 Chronic ki dney disease 196349989 N18.9 [id number] Karyn Nolasco NP [facility] [address] [place] [address] 01/20/2024 14:23:38 01/22/2024 11:48:42 Cirrhosis of liver 22849226 K74.60 history of Lopez cirrhosis. Continues Lasix [...] screen for HCC, continue q 6 months. [id number] Mika Knapp MD [address] [place] [address] 02/29/2024 12:55:53 02/29/2024 13:37:44 Coronary atherosclerosis 953943098 I25.10 sp CABGNo anginal or heart failure symptoms.C ontinue aggressive risk factor modificati on.Continu e current cardiac regimen. Atrial fibrillation 4943 6004 I48.91 chronic. Rates well controlled .Continue Eliquis to 5 b.i.d. Hyperlipidemia 40999493 E78.5 Continue statin Low fat/carboh ydrate diet Increase exercise Lose weight Essential hypertension 39591773 I10 Continue current medication . Keep log Low-salt diet < 2 gm Na/day, Regular exercise Weight loss Patent foramen ovale 204 736379 Q21.12 History of coronary artery bypass grafting 511937100 Z95.1 Cirrhosis of liver 007 K74.60 Recommend abdominal US to evaluate for ascites , know cirrhotic. He has a standing order at [facility] via his GI MD for abdominal US which he will pursue. For now can increase Lasix to 40 daily or b.i.d. p.r.n. Chronic ki dney disease 169187387 N18.9 [id number] Mika Knapp MD [address] [place] [address] 04/05/2024 14:18:16 04/05/2024 16:09:45 Cirrhosis of liver 04253704 K74.60 Can increase Lasix to 40 daily or b.i.d. p.r.n. Coronary atherosclerosis 658756815 I25.10 sp CABGNo anginal or heart failure symptoms.C ontinue aggressive risk factor modificati on.Continu e current cardiac regimen. Atrial fibrillation 4943 6004 I48.91 chronic. Rates well controlled .Continue Eliquis to 5 b.i.d. Hyperlipidemia 67313074 E78.5 Continue statin Low fat/carboh ydrate diet Increase exercise Lose weight Essential hypertension 87968755 I10 Continue current medication . Keep log Low-salt diet < 2 gm Na/day, Regular exercise Weight loss Patent foramen ovale 204 512287 Q21.12 History of coronary artery bypass grafting 805982224 Z95.1 Chronic ki dney disease 095975333 N18.9 Dyspnea on exertion 6084 5006 R06.09 Increase Lasix to 40 daily or b.i.d. p.r.n.will recheck echothe patient has liver cirrhosis, chronic kidney disease with a creatinine around 2 GFR on 33 chronic AFib, diastolic dysfunctio n all probably contributi ng to dyspnea [id number] Mika Knapp MD [facility] [address] [place] [address] 05/02/2024 13:06:44 05/02/2024 13:38:25 Dyspnea on exertion 54809142 R06.09 multifacto rial including pulmonary hypertensi on , diastolic dysfunctio n, valvular heart disease ,anemia, renal insufficie ncy, cirrhosis and age all contributi ng.Increas e Lasix to 40 daily or b.i.d. p.r.n. Cirrhosis of liver 007 K74.60 Can increase Lasix to 40 daily or b.i.d. p.r.n. Coronary atherosclerosis 690118549 I25.10 sp CABGNo anginal or heart failure symptoms.C ontinue aggressive risk factor modificati on.Continu e current cardiac regimen. Atrial fibrillation 4943 6004 I48.91 chronic. Rates well controlled .Continue Eliquis to 5 b.i.d. Hyperlipidemia 58264725 E78.5 Continue statin Low fat/carboh ydrate diet Increase exercise Lose weight Essential hypertension 42219837 I10 Continue current medication . Keep log Low-salt diet < 2 gm Na/day, Regular exercise Weight loss Patent foramen ovale 204 839589 Q21.12 History of coronary artery bypass grafting 126304708 Z95.1 Chronic ki dney disease 524848421 N18.9 creatinine 1.9 GFR 36 from 03/2024 [id number] Karyn Nolasco NP [facility] [address] [place] [address] 05/18/2024 12:41:31 05/18/2024 13:52:09 Cirrhosis of liver 72133133 K74.60 history of Lopez cirrhosis. Continues Lasix [...] for HCC 07/2024, continue q 6 months. [id number] Mika Knapp MD [facility] [address] [place] [address] 08/15/2024 13:44:36 08/15/2024 14:13:34 Cirrhosis of liver 87415050 K74.60 Continue Lasix to 40 daily or b.i.d. p.r.n. Coronary atherosclerosis 651187936 I25.10 sp CABGNo anginal or heart failure symptoms.C ontinue aggressive risk factor modificati on.Continu e current cardiac regimen. Atrial fibrillation 4943 6004 I48.91 chronic. Rates well controlled .Continue Eliquis to 5 b.i.d. Hyperlipidemia 15709681 E78.5 Continue statin Low fat/carboh ydrate diet Increase exercise Lose weight Essential hypertension 19713463 I10 Continue current medication . Keep log Low-salt diet < 2 gm Na/day, Regular exercise Weight loss Chronic ki dney disease 106274539 N18.9 creatinine 1.9 GFR 36 from 03/2024 Patent foramen ovale 204 202285 Q21.12 History of coronary artery bypass grafting 233504352 Z95.1 [id number] Ian Mondragon M.D [facility] [address] [place] [address] 11/23/2024 09:33:56 11/23/2024 10:47:10 Cirrhosis of liver 89897037 K74.60 history of Lopez cirrhosis. No signs [...] to formulate MELD. Bilateral lower limb edema 657327449 R60.0 Continues Lasix 20 mg and Aldactone 25 mg as well as low-sodium diet. No edema on physical exam today. Health Concerns Section Related Observation LastModified by Organization Sary ls LastModified Time None Recorded Concern Status LastModified by Organization Details LastModified Time None Recorded Advance Directives Directive N: Payers Insurance Date Sequence Insurance Name Policy Number Policy Meraz Covered Member ID Meraz Member ID Guarantor Name 02/06/2025 1 [employer] (MEDICARE REPLACEMENT/A DVANTAGE - PPO) Venancio Schrader [place] [id number] Venancio Willis 08/15/2024 1 [place] [id number] Venancio Schrader [place] [id number] Venancio Willis Notes Date Note Type Note Provider Name and Address Organization Details Recorded Time 04/05/2024 text/html 78 M who is here for follow-upPCP: Sangeetha Montalvo, [place], [place] He c/o sob on exertionHe c/o Abdominal [...] [facility] 10/09/2022: BUN/ creatinine 66/2.9, hemoglobin/hematocrit 04/17, platelets 140 ECHO 10/09/2022 Dr Camara: normal EF severe RV enlargement with PASP of 65-70 mm, dxny-ff-rxfufbln AI, vtdsopha-jc-efklfv TREcho 11/15/2020: EF over 55%, moderately dilated [...] with aberrant conduction Mika Knapp MD [address] [facility], [place], [address], [facility] [place] - [place] & [place] 04/05/2024 16:17:05 05/02/2024 text/html 78 M who is here for follow-upPCP: Sangeetha Montalvo, [place], [place] Recent labs with PCP 04/26/24 reviewed CR1.9, gfr 35, LFTs- nml, Mild anemia Hb 10,A1C 6.2we discussed recently done echo results which is more or less stable compared to 2020. He continue to complain of dyspnea on [...] RV enlargement with PASP of 65-70 mm, zvxo-gz-lexucpjb AI, vjxtynan-pf-wosanb TREcho 11/15/2020: EF over 55%, moderately dilated RV with moderately decreased function, severe biatrial enlargement, mild AI, mild TR with PA systolic pressure of over 60Carotid Dopplers 10/2019: Gamino 50-69% disease bilateralNuclear stress test 05/12/2019:No [...] with aberrant conduction Mika Knapp MD [address], [place], [address], [facility] & [place] 05/02/2024 13:40:58 05/18/2024 text/html Patient returns to [...] bowel movements without melena. Karyn Nolasco NP [address] [place] [address], [address], [place], [address], [facility] & [place] 05/25/2024 14:35:49 08/15/2024 text/html 79 M who is here for follow-upPCP: Sangeetha Montalvo [place], [place] He feels really good. Euvolemic on [...] RV enlargement with PASP of 65-70 mm, tnnh-gl-wkvthbxm AI, uogeykjb-ss-ljxubq TREcho 11/15/2020: EF over 55%, moderately dilated [...] with aberrant conduction Mika Knapp MD [address], [place], [address], [facility] & [place] 08/15/2024 15:56:56 11/23/2024 text/html Patient returns to clinic today for follow-up on cirrhosis. Reports having [facility] 2 weeks ago with 2 stents placed. [...] bowel movements without melena. Karyn Nolasco NP [address] [place] [address], [address], [place], [address], [facility] & [place] 11/25/2024 10:41:56
--- NOTE | 2025-04-21 09:30 | NM_ITS ---
FINAL REPORT CLINICAL HISTORY: Decreased DLCO SOB 9:30AM 35.0 MCI TC DTPA 10:05AM 7.95 MCI TC MAA CXR ALSO DONE TODAY FINDINGS: NUCLEAR MEDICINE VENTILATION AND PERFUSION IMAGING TECHNIQUE: V/Q scan is performed utilizing 35.0 technetium 99 M DTPA aerosol and IV administration of 7.95 technetium 99 M MAA. Images were obtained in AP, PA, lateral, and oblique projections. FINDINGS There is no evidence of segmental or subsegmental mismatch perfusion defects. IMPRESSION: Low probability for pulmonary embolus. Reviewed, Interpreted and Dictated by Dalila Montano MD Transcribed by Priscilla Ellsworth Authenticated and . [facility]
[2025-04-21] MEDS: ISOTOPE DTPA(AEROSOL);1 DOSE (UP TO 75 MCI) IV (10:31)
[2025-04-21] MEDS: SODIUM CHLORIDE 0.9% 10ML SYR (RAD ONLY) 10 ML IV (10:31)
[2025-04-21] MEDS: ISOTOPE TC MAA;1 DOE (UP TO 45 MCI) 1 DOSE IV (10:32)
== END 2025-04-21 23:59 | disposition home or self-care (01) ==
LOC: RAD 09:15
PROVIDERS: PCP Family Medicine; Visit Provider Internal Medicine Pulmonary Disease
DX: R94.2 Abnormal results of pulmonary function studies (principal); Z95.1 Presence of aortocoronary bypass graft
CPT/HCPCS: 71046; 78582; A9540; A9567